=== PATIENT | female | born 1950 | race Caucasian/White ===

== ENCOUNTER 2019-12-20 09:54 | Outpatient (CLI) | payer MEDICARE, SELFPAY ==
--- NOTE | ~2019-12-20 | DEXA_ITS ---
Bone Density Report Name: Shaista Parry Age: 69 Sex: Female Ethnicity: White Date of : 1950 Indication: postmenopausal; parental hip fracture; height loss; asthma or emphysema; Referring Provider: Leanne, Yumi Study: Bone densitometry was performed. Exam Date: December 20, 2019 Accession number: [id number] Bone Density: Region BMD T-score Z-score Classification AP Spine (L1-L4) 1.070 0.2 2.3 Normal Femoral Neck (Left) 0.820 -0.3 1.5 Normal Total Hip (Left) 0.859 -0.7 0.8 Normal Total Hip Bilateral Avg 0.898 -0.4 1.1 Normal Femoral Neck (Right) 0.818 -0.3 1.5 Normal Total Hip (Right) 0.936 -0.1 1.4 Normal World Health Organization criteria for BMD impression classify patients as: Normal (T-score at or above -1.0), Osteopenia (T-score between -1.0 and -2.5), or Osteoporosis (T-score at or below -2.5). 10-year Fracture Risk: FRAX not reported because: All T-scores for Spine Total, Hip Total, Femoral Neck at or above -1.0 Clinical Information Provided by Patient: Parent has had a hip fracture Smokes Has the following medical conditions: Asthma or Emphysema Patient maximum height was 67 Menopause Age: 46 No regular weight bearing exercise Drinks caffeinated beverages Onset of menses at age 12 Number of children 4 Impression: The patient has normal bone mass. The patient has risk factors, including: parental hip fracture, smoking. Discussion: BONE DENSITY IS ABOVE THE MINIMUM DESIRABLE LEVEL AT ALL SKELETAL SITES TESTED. This patient?s bone mineral density is above the minimum desirable level (T-score -1.0 or better) at all sites measured. The patient should follow a healthful lifestyle (good nutrition with adequate calcium and vitamin D, and appropriate weight-bearing exercise). Follow-Up: Consider repeating this study in 5 years or sooner if there is some new clinical indication. Reported by: EDDIE on 12/20/2019 10:24:00 AM. Reviewed, dictated and finalized at location AAnabelle FREEMAN
== END 2019-12-20 09:55 | disposition home or self-care (01) ==
PROVIDERS: PCP Family Medicine; Visit Provider Physician Assistant
DX: M81.0 Age-related osteoporosis without current pathological fracture (principal)
CPT/HCPCS: 77080

== ENCOUNTER 2020-01-24 08:34 | Outpatient (CLI) | payer MEDICARE, SELFPAY ==
--- NOTE | ~2020-01-24 | CT_ITS ---
EXAMINATION: CTA abdomen pelvis DATE: 01/24/2020 09:24 INDICATION: Cervical abdominal aortic dissection TECHNIQUE: Computed tomographic angiography (CTA) of the abdomen and pelvis was performed without and with 100 mL Omnipaque-350 intravenous contrast. Maximum intensity projection 3D-reconstructions of t he aorta and other arteries were constructed by the technologist on a separate workstation. The dose- length product (DLP) was 1168.83 mGy-cm. Automated exposure control and iterative reconstruction tech Intuitive User [employer]facesque were employed. COMPARISON: 05/25/2018 FINDINGS: There is a partially imaged thoracoabdominal aortic dissection extending from the visualize d distal thoracic aorta to the level of the origin of the inferior mesenteric artery. The right renal artery arises from the false lumen and there is decreased perfusion of the right kidney compared to the left on this arterial phase study. The remaining abdominal vasculature arises from the true lumen . The aorta measures up to 4.5 cm in diameter at the level of the diaphragmatic hiatus. The lung base s are clear. The heart size is normal. The liver, spleen, pancreas, gallbladder, and adrenal glands a re normal. The left kidney is unremarkable. No pathologically enlarged abdominal or pelvic lymph node s are identified. There is no free intraperitoneal gas or evidence of bowel obstruction. There is mod erate lumbar spondylosis. IMPRESSION: 1. No significant change in thoracoabdominal aortic dissection. Right renal artery arises from the fa lse lumen and demonstrates decreased perfusion compared to the left on this arterial contrast phase. Reviewed, dictated and finalized at location B. IMPRESSION: 1. No significant change in thoracoabdominal aortic dissection. Right renal art [place] arises from the false lumen and demonstrates decreased perfusion compared t o the left on this arterial contrast phase.
[2020-01-24 09:10] LABS: Estimated Glomerular Filt Rate > 60
== END 2020-01-24 08:35 | disposition home or self-care (01) ==
PROVIDERS: PCP Family Medicine
DX: I71.03 Dissection of thoracoabdominal aorta (principal)
CPT/HCPCS: 36415; 74174; Q9967

== ENCOUNTER 2020-08-16 09:12 | Outpatient (CLI) | payer MEDICARE, MEDICAID, SELFPAY ==
--- NOTE | ~2020-08-16 | CT_ITS ---
EXAMINATION: CTA chest abdomen pelvis DATE: 08/16/2020 09:53 INDICATION: Aortic dissection TECHNIQUE: Computed tomographic angiography (CTA) of the chest, abdomen, and pelvis was performed wit h 100 mL Omnipque-350 intravenous contrast. Maximum intensity projection 3D-reconstructions of the ao rta and other arteries were constructed by the technologist on a separate workstation. The dose-lengt h product (DLP) was 904.05 mGy-cm. Automated exposure control and iterative reconstruction technique were employed. 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 There has been interval enlargement of t he diameter of the descending aorta which now measures up to 4.7 cm, predominantly accounted for by e nlargement of false lumen. There is also intramural hematoma surrounding the distal aspect of the fal se lumen in the thorax. There is mild emphysema. Multinodular goiter is again noted. There is scarrin g of the lung apices. There is no pleural effusion or pneumothorax. Cardiomegaly is noted. There are no pathologically enlarged thoracic lymph nodes. There is moderate thoracic spondylosis. ABDOMEN AND PELVIS CTA: The type B dissection of the thoracic aorta continues into the abdomen to the infrarenal abdominal ao rta. The superior mesenteric artery and celiac axis arise from the true lumen. The single right renal artery arises from the false lumen. Again noted is decreased perfusion of the right kidney compared to the left. A single left renal artery arises from the true lumen. The liver, spleen, gallbladder, a nd adrenal glands are normal. There is a stable 12 mm lesion in the tail of the pancreas and a stable 5 mm lesion the body of the pancreas. No pathologically enlarged abdominal or pelvic lymph nodes are identified. There is no free intraperitoneal gas or evidence of bowel obstruction. There is moderate lumbar spondylosis. IMPRESSION: 1. Type B dissection of the thoracic aorta extending into the infrarenal abdominal aorta. The right r enal artery is again noted to arise from the false lumen and the right kidney demonstrates decreased perfusion compared to the left. 2. Fusiform aneurysm of the distal thoracic aorta predominantly accounted for by enlargement of the f alse lumen and intramural hematoma. 3. Stable cystic lesions of the pancreas measuring up to 12 mm. The differential diagnosis includes p seudocyst, intraductal papillary mucinous neoplasm (IPMN), mucinous cystic neoplasm (MCN), and the le ss common serous cystadenoma and neuroendocrine tumor. Correlate for history of pancreatitis. Follow -up CT or MRI with and without contrast in two years is recommended. Reviewed, dictated and finalized at location A. TARY PAY TECHNICIAN IMPRESSION: 1. Type B dissection of the thoracic aorta extending into the infrarenal abdomi nal aorta. The right renal artery is again noted to arise from the false lumen and the right kidney demonstrates decreased perfusion compared to the left. 2. Fusiform aneurysm of the distal thoracic aorta predominantly accounted for b y enlargement of the false lumen and intramural hematoma. 3. Stable cystic lesions of the pancreas measuring up to 12 mm. The differentia l diagnosis includes pseudocyst, intraductal papillary mucinous neoplasm (IPMN) , mucinous cystic neoplasm (MCN), and the less common serous cystadenoma and ne uroendocrine tumor. Correlate for history of pancreatitis. Follow-up CT or MRI with and without contrast in two years is recommended.
[2020-08-16 09:49] LABS: Estimated Glomerular Filt Rate > 60
== END 2020-08-16 09:13 | disposition home or self-care (01) ==
PROVIDERS: PCP Family Medicine
DX: I71.03 Dissection of thoracoabdominal aorta (principal); I71.2 Thoracic aortic aneurysm, without rupture; S27.892A Contusion of other specified intrathoracic organs, initial encounter; K86.9 Disease of pancreas, unspecified
CPT/HCPCS: 71275; 74174; Q9967

== ENCOUNTER 2021-01-22 12:38 | Outpatient (CLI) | payer MEDICARE, MEDICAID, SELFPAY ==
[2021-01-22 13:16] LABS: Anion Gap 8 mmol/L (8-16); Blood Urea Nitrogen 17 mg/dL (7-17); Calcium 9.5 mg/dL (8.4-10.2); Carbon Dioxide 28 mmol/L (22-30); Chloride 102 mmol/L (98-107); Estimated Glomerular Filt Rate > 60; Glucose 103 mg/dL (65-110); Sodium 138 mmol/L (137-145)
== END 2021-01-22 12:39 | disposition home or self-care (01) ==
PROVIDERS: PCP Family Medicine; Visit Provider Internal Medicine Cardiovascular Disease
DX: I10 Essential (primary) hypertension (principal)
CPT/HCPCS: 36415; 80048

== ENCOUNTER 2021-03-22 08:48 | Outpatient (CLI) | payer MEDICARE, MEDICAID, SELFPAY ==
[2021-03-22 09:25] LABS: Blood Urea Nitrogen 25 mg/dL (7-17); Calcium 9.8 mg/dL (8.4-10.2); Carbon Dioxide 30 mmol/L (22-30); Chloride 103 mmol/L (98-107); Estimated Glomerular Filt Rate > 60; Glucose 108 mg/dL (65-110); Potassium 4.4 mmol/L (3.4-5.0)
[2021-03-22 09:45] LABS: Anion Gap 7 mmol/L (8-16); Sodium 140 mmol/L (137-145)
== END 2021-03-22 08:49 | disposition home or self-care (01) ==
LOC: ANHLAB 08:55
PROVIDERS: PCP Family Medicine; Visit Provider Internal Medicine Cardiovascular Disease
DX: I10 Essential (primary) hypertension (principal)
CPT/HCPCS: 36415; 80048

== ENCOUNTER 2021-04-04 11:53 | Outpatient (CLI) | payer MEDICARE, MEDICAID, SELFPAY ==
[2021-04-04 12:35] LABS: Anion Gap 7 mmol/L (8-16); Blood Urea Nitrogen 27 mg/dL (7-17); Calcium 9.5 mg/dL (8.4-10.2); Carbon Dioxide 30 mmol/L (22-30); Chloride 103 mmol/L (98-107); Estimated Glomerular Filt Rate > 60; Glucose 95 mg/dL (65-110); Potassium 4.4 mmol/L (3.4-5.0); Sodium 140 mmol/L (137-145)
== END 2021-04-04 11:54 | disposition home or self-care (01) ==
LOC: ANHLAB 11:56
PROVIDERS: PCP Family Medicine; Visit Provider Internal Medicine Cardiovascular Disease
DX: Z51.81 Encounter for therapeutic drug level monitoring (principal); Z79.899 Other long term (current) drug therapy
CPT/HCPCS: 36415; 80048

== ENCOUNTER 2022-02-25 12:30 | Outpatient (RCR) | payer MEDICARE, MEDICAID, SELFPAY ==
[2022-02-21 09:09] VITALS: BP_SYST 165; BP_SYST 88
--- NOTE | 2022-02-21 10:09 | PTOPEVAL ---
PHYSICAL THERAPY INITIAL EVALUATION. Thank you for referring Shaista Parry to [facility].? The patient is scheduled to be seen for therapy? 2x/week for 4 weeks. Please review, sign, date and return this plan of care SENA. I agree with and certify that the following plan of care is medically necessary. Referring Physician Date Attending Provider: Shandra Perdomo, PA *PT Outpatient Evaluation Start: 02/21/22 Evaluation Information Diagnosis L shoulder pain Onset ~1 year Subjective Information Pt states her L shoulder has Query Text:As Reported By Patient/ been bother her for almost a Family year now. She states it is painful to reach overhead. She reports when carrying something light, her hand, particularly her thumb will go out . Pain Assessment Left Shoulder(s) Reported Pain Level 4 Pain Description Soreness,Tightness Pain Frequency Intermittent Lowest Pain Intensity 4 Greatest Pain Intensity 8 Upper Extremity Range of Motion Scapular/ Shoulder Range of Motion Right Shoulder Flexion - Active 150 Shoulder Flexion - Passive 155 Shoulder Abduction - Active 138 Shoulder Abduction - Passive 165 Shoulder Medial Rotation - Active T12 Shoulder Lateral Rotation - Active T4 Left Shoulder Flexion - Active 112 Shoulder Flexion - Passive 125 Shoulder Abduction - Active 80 Shoulder Abduction - Passive 88 Shoulder Medial Rotation - Active L PSIS Shoulder Lateral Rotation - Active T2 Scapular/Shoulder Range of Motion pain reported with active Comments motion, at posterior GH joint Upper Extremity Muscle Strength Testing Scapular/Shoulder Right Shoulder Flexion Strength 4+ Good + Shoulder Abduction Strength 4+ Good + Shoulder Medial Rotation Strength 4+ Good + Shoulder Lateral Rotation Strength 4+ Good + Left Reason Not Measured Pain Shoulder Flexion Strength 4 Good Shoulder Abduction Strength 4 Good Shoulder Medial Rotation Strength 4 Good Shoulder Lateral Rotation Strength 4 Good Posture Shoulder Posture Neutral Scapula Posture (L) Neutral,(R) Neutral Palpation Assessment Palpation none reported Special Tests-Upper Extremity Painful Arc Negative Right,Positive Left Safety Assessment Factors Affecting Safety No Concerns Manual Therapy Side Left Manual Therapy Location Shoulder Patient Position Supine Manual Therapy Treatment Grade 3 Mobilization,Passive
--- NOTE | 2022-03-08 13:52 | PCPTNOTE ---
Patient did not show up for scheduled appointment this date. Called and talked to the patient and she stated that she did not have an appointment today.
--- NOTE | 2022-03-12 08:06 | PTOPDC ---
Evaluation Information Assessment Status Discharge - Pt Not Present Subjective Information Pt called and cancelled all of her remaining appointment including her reevaluation this date. She reports her is sick and not doing well . She states she does not have time to invest in therapy at this time. Assessment PT Clinical Summary Shaista has completed 2 visits of skilled therapy. Pt is to be discharged from therapy services at this time. She will need to orders if she would like to return.
== END 2022-03-12 09:22 | disposition home or self-care (01) ==
LOC: ANHPT 12:30
PROVIDERS: PCP Family Medicine; Referring Provider Physician Assistant; Visit Provider Physician Assistant
DX: M75.42 Impingement syndrome of left shoulder (principal)
CPT/HCPCS: 97110; 97140; 97161; 99199

== ENCOUNTER 2023-02-18 09:39 | Outpatient (CLI) | payer MEDICARE, MEDICAID, SELFPAY ==
[2023-02-18 10:46] LABS: Anion Gap 6 mmol/L (8-16); Blood Urea Nitrogen 22 mg/dL (7-17); Carbon Dioxide 29 mmol/L (22-30); Chloride 103 mmol/L (98-107); Estimated Glomerular Filt Rate > 60; Glucose 86 mg/dL (65-110); Potassium 4.2 mmol/L (3.4-5.0); Sodium 138 mmol/L (137-145)
== END 2023-02-18 09:40 | disposition home or self-care (01) ==
PROVIDERS: PCP Family Medicine; Visit Provider Internal Medicine Cardiovascular Disease
DX: Z79.899 Other long term (current) drug therapy (principal)
CPT/HCPCS: 36415; 80048

== ENCOUNTER 2023-06-27 13:03 | Outpatient (CLI) | payer MEDICARE, MEDICAID, SELFPAY ==
--- NOTE | ~2023-06-27 | XR_ITS ---
XR chest 2V 06/27/2023 13:45 Indication: Pneumonia Procedure: 2 view chest Comparison: 05/25/2018 Findings: There is a new masslike density in the right upper lobe anteriorly, suspicious for bronchog enic carcinoma. Small right pleural effusion. Heart size normal. Left lung clear. Impression: 1: New masslike density right upper lobe anteriorly, suspicious for bronchogenic carcinoma. Correlati on with CT chest recommended. Reviewed, dictated and finalized at location A. DIRECTOR Impression: 1: New masslike density right upper lobe anteriorly, suspicious for bronchogeni c carcinoma. Correlation with CT chest recommended.
[2023-06-27 14:12] LABS: Alanine Aminotransferase 52 U/L (6-35); Albumin Level 3.9 g/dL (3.5-5.1); Alkaline Phosphatase 103 U/L (38-126); Anion Gap 8 mmol/L (8-16); Aspartate Amino Transferase 46 U/L (14-36); Bilirubin,Total 0.3 mg/dL (0.2-1.3); Blood Urea Nitrogen 26 mg/dL (7-17); Calcium 10.1 mg/dL (8.4-10.2); Carbon Dioxide 29 mmol/L (22-30); Chloride 102 mmol/L (98-107); Estimated Glomerular Filt Rate > 60; Glucose 93 mg/dL (65-110); Potassium 4.4 mmol/L (3.4-5.0); Sodium 139 mmol/L (137-145)
== END 2023-06-27 13:04 | disposition home or self-care (01) ==
PROVIDERS: PCP Physician Assistant; Visit Provider Physician Assistant
DX: J18.9 Pneumonia, unspecified organism (principal); R60.0 Localized edema; R91.8 Other nonspecific abnormal finding of lung field
CPT/HCPCS: 36415; 71046; 80053

== ENCOUNTER 2024-03-31 16:30 | Emergency (ER) | payer MEDICARE, MEDICAID, SELFPAY ==
[2024-03-31 16:39] VITALS: BP 145/77; PULSE 74; RESP 18; TEMP 36.4; O2SAT 97
[2024-03-31 16:49] LABS: EDUAAPPEAR Cloudy; EDUABILI Negative (Negative); EDUABLOOD Trace (Negative); EDUACOLOR1 Dark; EDUAGLUCOSE Negative (Negative); EDUAKETONE Negative (Negative); EDUALEUKO 2+ (Negative); EDUANITRATE Negative (Negative); EDUAPROTEIN Negative (Negative); EDUASPGRAVITY 1.025; EDUAUROBILI 0.2
--- NOTE | 2024-03-31 17:21 | ED.GENADULT ---
HPI - General Adult General Chief complaint: Urogenital-Female Stated complaint: uti symptoms Time Seen by Provider: 03/31/24 16:47 Source: patient, RN notes reviewed and old records reviewed Mode of arrival: ambulatory Limitations: no limitations History of Present Illness HPI narrative: 73-year-old female to [facility] for complaint of urinary frequency, retention and burning with urination for 3 days. Patient states that she was seen on March 09 by her primary care provider and treated for a urinary tract infection with Macrobid. patient reports that after a biotic treatment her symptoms had completely resolved until 3 days ago. Patient denies abdominal pain, nausea, vomiting, flank pain, back pain, hematuria, bowel changes, fever. Patient resting comfortably in exam room in no acute distress. Respirations even and nonlabored. Patient able to tolerate fluids by mouth. Patient states that she did call her primary care provider's office this morning but they were unable to see today. Related Data Home Medications Medication Instructions Recorded Confirmed alprazolam 0.25 mg tablet 0.25 mg DIRECTED 03/31/24 03/31/24 atorvastatin 40 mg tablet 40 mg DIRECTED 03/31/24 03/31/24 carvedilol 6.25 mg tablet (Coreg) 6.25 mg DIRECTED 03/31/24 03/31/24 irbesartan 75 mg tablet 75 mg DIRECTED 03/31/24 03/31/24 valacyclovir 500 mg tablet 500 mg DIRECTED 03/31/24 03/31/24 Allergies Allergy/AdvReac Type Severity Reaction Status Date / Time Penicillins Allergy Unknown Unknown Verified 03/31/24 17:11 Review of Systems Review of Systems: All systems reviewed & are unremarkable except as noted in HPI and below Constitutional: Constitutional: Reports no additional constitutional complaints Eyes: Eyes: Reports no additional eye complaints ENT: Reports system reviewed and no additional complaints, except as documented Cardiovascular: Cardiovascular: Reports no additional cardiovascular complaints, Denies chest pain and Denies dyspnea Respiratory: Respiratory: Reports no additional respiratory complaints, Denies cough and Denies dyspnea Genitourinary: Genitourinary: Reports as per HPI, Reports nocturia, Reports dysuria and Reports urinary urgency Musculoskeletal: Musculoskeletal: Reports no additional musculoskeletal complaints Neurologic: Reports system reviewed and no additional complaints, except as documented Psychiatric: Psychiatric: Reports no additional psychiatric complaints [facility] Family History Family History Mother Cerebrovascular accident Sibling Family history of pancreatic cancer Father Family history of coronary artery disease Other Family history of lung cancer Family history of lymphoma Social History Social History Smoking status: Current every day smoker Alcohol intake: current Comments At the time of my signature, I reviewed and agree with the nursing past medical, surgical, social, and family history. There is no relevant family history pertinent to the patient complaint. Exam Const: General: cooperative, no acute distress, well developed, alert, uncomfortable, well groomed and well nourished Nutritional Appearance: well nourished Orientation/consciousness: patient oriented x3 Limitations: no limitations HENMT: Head: normal to inspection Ears: external ears normal Face/Nose/Sinus: Normal external nose present, Normal nares present, normal facial exam, No erythema and No edema Face and sinus: normal facial exam, no erythema and no edema Mouth: Yes Normal oral and palatal mucosa present Eyes: General: appearance normal, both eyes and all related structures Neck: Neck: normal visual inspection, full ROM and no meningeal signs Chest: Chest palpation & inspection: normal inspection of the chest Resp: Effort & Inspection: normal respiratory effort
== END 2024-03-31 17:41 | disposition home or self-care (01) ==
PROVIDERS: Emergency Provider Nurse Practitioner Family; PCP Physician Assistant
DX: N39.0 Urinary tract infection, site not specified (principal); B96.20 Unspecified Escherichia coli [E. coli] as the cause of diseases classified elsewhere; F17.200 Nicotine dependence, unspecified, uncomplicated; M19.90 Unspecified osteoarthritis, unspecified site; E03.9 Hypothyroidism, unspecified
CPT/HCPCS: 81003; 87077; 87086; 87186; 99213; G0463

== ENCOUNTER 2024-11-20 13:01 | Emergency (ER) | payer MEDICARE, MEDICAID, SELFPAY ==
--- OUTSIDE RECORDS SUMMARY | 2024-11-20 13:03 | XMS_ITS | Encounter Summary ---
Author Organization [facility] Address [address] [place] [address] Care Team Providers Care Tripe Cooker Name Role Phone Unavailable Primary Care Provider Unavailabl e Encounter Details Date Type Department Care Team (Late st Contact Info) Description 04/25/2020 Lab Requisition [facility] DermPath Lab [address] [facility] [address] [facility], [facility] [place] [id number] Hallie Carballo MD [address] [facility] [address] [place] [address] Social History Tobacco Use Types Packs/Day Years Used Date Smoking Tobacco: Never Assessed Comments Unknown Sex and Gender Information Value Date Recorded Sex Assigned at Not on file 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 Gender Identity Not on file Sexual Orientation Not on file documented as of this encounter Plan of Treatment Not on file documented as of this encounter Procedures Procedure Name Priority Date/Time Associated Diagnosis Comments DERMATOPATHOLOGY Routine 04/24/2020 12:0 0 AM CDT documented in this encounter Results * DERMATOPATHOLOGY (04/24/2020 12:00 AM CDT) Case Report Dermatopathology Report Case: [id number] Authorizing Provider: Hallie Carballo MD Collected: 04/24/2020 12:00 AM Ordering Location: [facility] Derm[facility] Lab Received: 04/25/2020 06:38 AM Pathologist: Kayleigh De La Torre MD Specimen: Skin, nose bridge 0 1:45 PM CDT DERMATOPATHOLOGY LABORATORY Final Diagnosis Specimen A. 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 0 1:45 PM CDT DERMATOPATHOLOGY LABORATORY Gross Description Specimen A: Received is one formalin filled container labeled with the patient's name and designated nose bridge. The specimen consists of a shave measuring [id number]. Jar 0. 0 1:45 PM CDT DERMATOPATHOLOGY LABORATORY Microscopic Description Specimen A. SKIN, nose bridge: The epidermis shows parakeratosis, full thickness disorderly maturation of keratinocytes, mitoses at different levels, and dyskeratotic cells. The lesion extends to the base of the biopsy.COMMENT: An invasive squamous cell carcinoma cannot be ruled out. Additional deeper sections were obtained and reviewed. 0 1:45 PM CDT DERMATOPATHOLOGY LABORATORY Disclaimer An external and internal positive and negative controls are appropriate for the histochemical, immunohistochemical and immunofluorescence stain(s) in this case (if any), except where stated explicitly. The performance characteristics of the stain(s) cited in this report were developed and its performance characteristic determined by the Dermatopathology Laboratory at [facility], directed by Dr. Jose E Carmichael. These tests need not be, and therefore are not, approved by the [place] Food and Drug Administration. The tests are used for clinical purposes. Billing Codes Specimen Charges Stain Charges 11852 1 0 1:45 PM CDT DERMATOPATHOLOGY LABORATORY Embedded Images 0 1:45 PM CDT DERMATOPATHOLOGY LABORATORY Pathology/Cytolog y TISSUE SPECIMEN FROM SKIN / Unknown 04/24/2020 04/25/2020 6:38 AM CDT us Hallie Carballo MD LAB - PATHOLOGY/CYTOLOGY ORD ERABLES Final Result DERMATOPATHOLOGY LABORATORY [facility] - Department of Dermatology [address] [place] [address], [facility] [phone] documented in this encounter Visit Diagnoses Not on filedocumented in this encounter
--- OUTSIDE RECORDS SUMMARY | 2024-11-20 13:03 | XMS_ITS | Clinical Summary ---
Author Organization [facility] Address [address] [place] [address] Care Team Providers Care Rewinder Name Role Phone Unavailable Primary Care Provider Unavailabl e Source Comments [facility],non-owned Affiliates and Associated Physician Practices is amultiple site organization consisting of ambulatory clinics and hospital sitesin [place], [place], [place] and [place]. This disclosure is being madepursuant to the Care Everywhere program and may not contain all information available regarding this patient. 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 Gender Identity Not on file Sexual Orientation Not on file Plan of Treatment Health Maintenance Due Date Last Done Comments BONE DENSITY TESTING 1950 COLOGUARD (AGES 45-75) - COL ON CA SCREENING 1950 COLON MONITORING 1950 COLONOSCOPY - COLON CA SCREENING 1950 CT COLONOGRAPHY - COLON CA SCREENING 1950 Colorectal Cancer Screening 1950 FIT - COLON CA SCREENING 1950 FLEX SIG - COLON CA SCREENING 1950 LIPID TESTING 1950 MAMMOGRAM 1950 HEPATITIS C SCREENING 05/28/1968 DTAP/TDAP/TD VACCINES (1 - Tdap) 1969 PNEUMOCOCCAL VACCINE 50+ (1 of 1 - PCV) 2000 ZOSTER VACCINE (1 of 2) 2000 COVID-19 VACCINE ( - 2023-2 5 season) 2024 DEPRESSION SCREENING 06/30/2024 INFLUENZA VACCINE (Season Ended) 2025 Respiratory Syncytial Virus (RSV) Vaccine Pt: or over 60 yrs (1 - 1-dose 75+ series) 2025 HEPATITIS B VACCINE Aged Out No longe r eligible based on patient's age to complete this topic HIB VACCINE Aged Out No longer eligi ble based on patient's age to complete this topic HPV VACCINE Aged Out No longer eligi ble based on patient's age to complete this topic MENINGOCOCCAL (Group B) VACC INE SHARED DECISION-MAKING Aged Out No longer eligibl e based on patient's age to complete this topic MENINGOCOCCAL GROUPS A/C/Y/W VACCINE Aged Out No longer eligible b ased on patient's age to complete this topic Insurance [employer] MANAGED MEDICARE ADV
--- OUTSIDE RECORDS SUMMARY | 2024-11-20 13:03 | XMS_ITS | Clinical Summary ---
Author Organization [facility] Address [address], [address] [place] [address] Phone Care Team Providers Care Electrocardiograph Repairer Name Role Phone Shandra Perdomo A PAC Primary Care Provider [phone] Archie Arredondo MD Unavailable Aracelis See MD Unavailable Sanitago Hope MD Unavailable Allergies Active Allergy Reactions Criticality Noted Date Comments Amlodipine Swelling Medium 12/19/2020 Lisinopril Other (see Comments) Low 11/22/2022 Losartan Other (see Comments) Low 02/10/2023 Nightmares Penicillins Rash,Hives Medium 05/25/2018 Rash in her 30s Medications ALPRAZolam (XANAX) 0.25 MG Tablet TAKE 1 TABLET TWICE A DAY BY ORAL ROUTE NEEDED. 08/02/2022 Active atorvastatin (LIPITOR) 40 MG Tablet Take 40 mg by mouth daily. 07/19/2022 Active Calcium + Vitamin D3 600-10 MG-MCG Tablet Take 1 Tablet by mouth daily. 04/29/2022 Active carvedilol (COREG) 6.25 MG Tablet Take 6.25 mg by mouth 2 times daily. 06/20/2022 Active clobetasol (TEMOVATE) 0.05 % Cream 07/29/2022 Active ferrous sulfate 325 (65 Fe) MG Tablet Take 325 mg by mouth 3 times daily. Active latanoprost (XALATAN) 0.005 % Solution APPLY ONE DROP TO BOTH EYES ONCE AT NIGHT 07/12/2022 Active valACYclovir (VALTREX) 500 MG Tablet Take 500 mg by mouth daily. 07/31/2022 Active Simbrinza 1-0.2 % Suspension 10/18/2022 Active irbesartan (AVAPRO) 75 MG Tablet Take 75 mg by mouth. 08/25/2023 Active Active Problems Problem Noted Date Diagnosed Date AVM (arteriovenous malformation) 12/23/2022 History of Helicobacter pylori infection 023 Vitamin D deficiency 10/24/2022 Coronary atherosclerosis 08/29/2022 Other specified anemias 08/09/2022 Iron deficiency anemia 08/09/2022 NOE (generalized anxiety disorder) 08/06/2022 Overview (08/29/2022): Last Assessment & Plan: Uncontrolled Previously had side effects to ssri Consider buspar, she will think about Continue xanax as needed as must keep blood pressure at goal given dissection NSTEMI (non-ST elevated myocardial infarction) 0 01/03/2021 Hypertension 05/27/2018 Overview (08/29/2022): Last Assessment & Plan: In the setting of Type B dissection. No prior hx but likely HTN at baseline. Yesterday, Cardene gtt started and Amlodipine 5 mg given to achieve SBP goal <120. Lisinopril 5 mg given in afternoon and Cardene gtt weaned off at 1800. Overnight, MAP's dropped to 50's and HR dropped to 50's while pt sleeping. This AM, HR 60's-70's and SBP in the 110's. - SBP goal <120 and HR <70 in the setting of type B dissection - Cardiology following - Coreg 3.125 mg BID despite transient bradycardia overnight. 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 - Thyroid ultrasound Last Assessment & Plan: Found incidentally on CT scan. - Thyroid ultrasound Aortic dissection 05/25/2018 Overview (08/29/2022): Last Assessment & Plan: Type B dissection. Continues to deny pain. - Keep HR <70 and SBP <120 - Advance diet to Cardiac diet - q1 hr neurovascular checks - Tylenol PRN - Morphine 2 mg IV PRN Last Assessment & Plan: Following with cardiology Annual CT scan Basal cell carcinoma (BCC) of face 11/08/2016 Encounters Date Type Department Care Team Description 10/11/2024 9:40 AM CDT Lab [facility] [address] [phone] [facility] Iron deficiency anemia, unspecified iron deficiency anemia type 10/11/2024 Travel 10/07/2024 Telephone [facility] [address] [phone] Archie Arredondo MD Canopy Call / Fatigue 09/14/2024 9:45 AM CDT Clinical Support [facility] [address] [phone] Iron deficiency anemia, unspecified iron deficiency anemia type (Primary Dx) 09/14/2024 Travel 09/13/2024 Results Follow-Up [facility] [address] [phone] Archie Arredondo MD IRON W/ IRON BINDING CAPACITY [place], FERRITIN, CBC WITH AUTO DIFF [place] 09/09/2024 9:30 AM CDT Office Visit [facility] [address] [phone] Svetlana Artis APRN, CNP Iron deficiency anemia, unspecified iron deficiency anemia type (Primary Dx); AVM (arteriovenous malformation) 09/09/2024 Telephone [facility] [address] [phone] Archie Arredondo MD 09/08/2024 9:45 AM CDT Lab [facility] [address] [phone] Lab[facility] Iron deficiency anemia, unspecified iron deficiency anemia type; AVM (arteriovenous malformation) 09/08/2024 Travel from Last 3 Months Immunizations Immunization Administration Dates Next Due TDAP Vaccine 02/13/2023 Family History Medical History Relation Name Comments Heart Disease Brother 1 Cancer Brother 2 Lung Cancer Child Cardiomyopathy Father Colon Cancer Maternal Aunt Stroke Mother Relation Name Status Comments Brother 1 Brother 2 pancratic cance r Child Father Maternal Aunt Mother Social History Tobacco Use Types Packs/Day Years Used Date Smoking Tobacco: Former Cigarettes Q uit: 2020 Smokeless Tobacco: Never Tobacco Cessation:Counseling Given: Not Answered Alcohol Use Standard Drinks/Week Comments Yes 0 (1 standard drink = 0.6 oz pur e alcohol) rarely Comments Unknown Sex and Gender Information Value Date Recorded Sex Assigned at Not on file Legal Sex Female 9:29 AM [employer] Gender Identity Not on file Sexual Orientation Not on file Last Filed Vital Signs Vital Sign Reading Time Taken Comments Blood Pressure 110/78 09/09/2024 9:30 AM CDT Pulse 55 09/09/2024 9:30 AM CDT Temperature 36.4 C (97.5 F) 09/09/2024 9:30 AM CDT Respiratory Rate 18 09/09/2024 9:30 AM CDT Oxygen Saturation 96% 09/09/2024 9:30 AM CDT Inhaled Oxygen Concentration - - Weight 80.7 kg (177 lb 14.4 oz) 09/09/2024 9:30 AM CDT Height 165.1 cm (5' 5 ) 09/09/2024 9:30 AM CDT Body Mass Index 29.6 09/09/2024 9:30 AM CDT Plan of Treatment Upcoming Encounters Date Type Department Care Team (Late st Contact Info) Description 12/08/2024 9:30 AM CDT Lab [facility] [address] [phone] Lab, [facility] 12/09/2024 10:00 AM CDT Office Visit [facility] [address] [phone] Archie Arredondo MD [address] [place] [address] Health Maintenance Due Date Last Done Comments DEXA Bone Density 1950 Mammogram 1950 SARS-COV-2 Immunization (#1) 1955 Pneumococcal Immunization (5 0+ years) (1 of 2 - PCV) 1969 Zoster Immunization (1 of 2) 1969 Cologuard 2000 Immunochemical Fecal Occult Blood 2000 Respiratory Syncytial Virus (RSV) Immunization (Adult) (1 - Risk 60-74 years 1-dose series) 2010 Influenza Immunization (Seas on Ended) 2025 Colonoscopy 11/27/2032 11/27/2022 Colorectal Cancer Screening 11/27/2032 Td Immunization Every 10 Yea rs (Adults With 1 Tdap) 02/13/2033 02/13/2023 11/27/2022 Hepatitis C Virus (HCV) Screening Completed 023 DTaP/Tdap/Td Immunization Discontinued 02/13/2023 TdaP Immunization Discontinued 02/13/2023 Hepatitis B Immunization Aged Out No longer eligible based on patient's age to complete this topic Meningococcal Immunization (ACWY) Aged Out No longer eligible based on patient's age to complete this topic Rotavirus Immunization Aged Out No lo nger eligible based on patient's age to complete this topic Procedures Procedure Name Priority Date/Time Associated Diagnosis Comments CBC WITH AUTO DIFF OH Routine 10/11/2024 9:39 AM CDT FERRITIN Routine 10/11/2024 9:39 AM CDT Iron deficiency anemia, unspecified iron deficiency anemia type IRON W/ IRON BINDING CAPACITY OH Routine 10/11/2024 9:39 AM CDT Iron deficiency anemia, unspecified iron deficiency anemia type CBC WITH AUTO DIFF OH Routine 09/08/2024 10:15 AM CDT FERRITIN Routine 09/08/2024 10:15 AM CDT Iron deficiency anemia, unspecified iron deficiency anemia type AVM (arteriovenous malformation) IRON W/ IRON BINDING CAPACITY OH Routine 09/08/2024 10:15 AM CDT Iron deficiency anemia, unspecified iron deficiency anemia type AVM (arteriovenous malformation) HEPATITIS C ANTIBODY Routine 08/19/2022 8:44 AM [facility] Special screening examination for viral disease from Last 3 Months or Most Recently Relevant to Health Maintenance Results * (ABNORMAL) IRON W/ IRON BINDING CAPACITY [place] (10/11/2024 9:39 AM CDT) Only the most recent of2 resultswithin the time period is included. IRON 63 50 - 212 ug/dL [facility] UIBC 271 155 - 355 ug/dL [facility] TIBC 334 261 - 478 ug/dl [facility] % Saturation 19(L) 20 - 50 % [facility] 10/11/2024 9:39 AM CDT Narrative [facility] - 10/11/2024 10:46 AM CDT Release to patient->Immediate us Archie Arredondo MD LAB SEND OUTS Final Result [facility] [place] [address], * (ABNORMAL) CBC WITH AUTO DIFF [place] (10/11/2024 9:39 AM CDT) Only the most recent of2 resultswithin the time period is included. WBC 4.0 4.0 - 10.0 10*3/uL [facility] HGB 11.5 11.2 - 15.7 g/dL [facility] HCT 37.3 34.1 - 44.9 % [facility] PLT 192 163 - 369 10*3/uL [facility] MPV 10.1 9.4 - 12.4 fL [facility] RBC 3.90(L) 3.93 - 5.22 10*6/uL [facility] MCV 96(H) 79 - 95 fL [facility] MCH 29.5 25.6 - 32.2 pg [facility] MCHC 30.8(L) 32.2 - 36.5 g/dL [facility] RDW 13.3 11.6 - 14.4 % [facility] Neutrophils % 67.8(H) 36.0 - 66.0 % [facility] Lymphocytes % 19.3 19.0 - 40.0 % [facility] Monocytes % 8.8 4.1 - 12.1 % [facility] Eosinophils % 2.5 0.0 - 3.5 % [facility] Basophils % 0.8 0.0 - 1.0 % [facility] Absolute Neutrophils 2.7 1.4 - 6.6 10*3/uL [facility] Absolute Lymphocytes 0.8 0.8 - 4.0 10*3/uL [facility] Absolute Monocytes 0.4 0.2 - 1.2 10*3/uL [facility] Absolute Eosinophils 0.1 0.0 - 0.4 10*3/uL [facility] Absolute Basophils 0.0 0.0 - 0.1 10*3/uL [facility] 10/11/2024 9:39 AM CDT us Archie Arredondo MD LAB SEND OUTS Final Result [facility] * FERRITIN (10/11/2024 9:39 AM CDT) Only the most recent of2 resultswithin the time period is included. Pathologist [facility] Ferritin 37 11 - 307 ng/mL [facility] Blood 10/11/2024 9:39 AM CDT Narrative [facility] - 10/11/2024 2:36 PM CDT Release to patient->Immediate Archie Arredondo MD CHEMISTRY ORDERABLES Final R esult [facility] [place] [address], * HEPATITIS C ANTIBODY (08/19/2022 8:44 AM [facility]) Pathologist [facility] HEPATITIS C VIRUS AB SIGNAL CUTOFF NON REACTIVE NON REACTIVE [facility] HEPATITIS C VIRUS AB COMMENT [facility] Comment: NOT INFECTED WITH HCV UNLESS EARLY OR ACUTE INFECTION IS SUSPECTED (WHICH MAY BE DELAYED IN AN IMMUNOCOMPROMISED INDIVIDUAL), OR OTHER EVIDENCE EXISTS TO INDICATE HCV INFECTION. Blood 08/19/2022 8:44 AM [facility] Narrative [facility] - 08/20/2022 9:09 AM [facility] TESTING PERFORMED AT: [] [facility], [address] [place] [address], [place], [address], PHONE: [phone], PERMIT AGENT: RICO PARADA, PHD Release to patient->Immediate Aracelis See MD CHEMISTRY ORDERAB LES Final Result Performing Organization Address City[facility] Co de Phone Number [facility] from Last 3 Months or Most Recently Relevant to Health Maintenance Insurance MEDICAID [place] MEDICARE C [employer] Care Teams Electrocardiograph Repairer Relationship Specialty Start Date End Date Shandra Perdomo, BILL [address] [place] [id number] PCP - General Physician Production Reproduction Manager 07/25/22 Archie Arredondo MD [address] [place] [phone] Consulting Physician Oncology 07/25/22 Aracelis See MD [facility] [address] [place] [address] Family Medicine 08/20/22 Santiago Hope MD [address] [facility] [address] [place] [address] Pulmonary Disease 08/28/23
--- OUTSIDE RECORDS SUMMARY | 2024-11-20 13:03 | XMS_ITS | Encounter Summary ---
Author Organization [facility] Address [address] [place] [address] Phone Care Team Providers Care Nut Process Helper Name Role Phone Shandra Perdomo PAC Primary Care Provider Archie Arredondo MD Unavailable [phone] Aracelis See MD Unavailable Santiago Hope MD Unavailable [phone] Encounter Details Date Type Department Care Team (Late st Contact Info) Description 01/09/2024 Telephone [facility] [address] [place] [address] Archie Arredondo MD [address] [facility] [address] [facility] [address] [place] [address] Social History Tobacco Use Types Packs/Day Years Used Date Smoking Tobacco: Former Cigarettes Q uit: 2020 Smokeless Tobacco: Never Alcohol Use Standard Drinks/Week Comments Yes 0 (1 standard drink = 0.6 oz pur e alcohol) rarely Comments Unknown Sex and Gender Information Value Date Recorded Sex Assigned at Not on file 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 Question Answer Date of Assessment Author Patient Health Questionnaire -2 Score 0 01/12/2024 9:48 AM CDT Nancy Chen R MA documented as of this encounter Plan of Treatment Upcoming Encounters Date Type Department Care Team (Late st Contact Info) Description 12/08/2024 9:30 AM CDT Lab [facility] [address] [phone] Lab, [facility] 12/09/2024 10:00 AM CDT Office Visit [facility] [address] [phone] Archie Arredondo MD [address] [place] [phone] documented as of this encounter Visit Diagnoses Not on filedocumented in this encounter Care Teams Nut Process Helper Relationship Specialty Start Date End Date Shandra Perdomo PAC [address] [place] [address] PCP - General Physician [employer] Tin Roller 07/25/22 Archie Arredondo MD [address] [place] [phone] Consulting Physician Oncology 07/25/22 Aracelis See MD [facility] [address] [place] [address] Family Medicine 08/20/22 Santiago Hope MD [address] [facility] [address] [place], [place] [phone] Pulmonary Disease 08/28/23 documented as of this encounter
--- OUTSIDE RECORDS SUMMARY | 2024-11-20 13:04 | XMS_ITS | Encounter Summary ---
Author Organization [facility] Address [address] [place] [address] Phone Care Team Providers Care Phlebotomist Associate Name Role Phone Shandra Perdomo Primary Care Provider + Encounter Details Date Type Department Care Team (Latest Contact Info) Description 10/24/2024 Orders Only [facility] Scanning, Provider Social History Tobacco Use Types Packs/Day Years Used Date Smoking Tobacco: Former Cigarettes 1 50 1 971 - 2020 Smokeless Tobacco: Never Alcohol Use Standard Drinks/Week Comments No 0 (1 standard drink = 0.6 oz pur e alcohol) [facility] Utilities Answer Date Recorded In the past 12 months has e electric, gas, oil, or water company threatened to shut off services in your home? No 10/14/2024 Social Connection and Isolat ion Panel [NHANES] Answer Date Recorded In a typical week, how many times do you talk on the phone with family, friends, or neighbors? More than three times a week 10/14/2024 How often do you get togethe r with friends or relatives? More than three times a week 10/14/2024 How often do you attend chur ch or lutheran services? 1 to 4 times per year 10/14/2024 Do you belong to any clubs o r organizations such as sabianist groups, unions, fraternal or athletic groups, or school groups? No 10/14/2024 How often do you attend meet ings of the clubs or organizations you belong to? Never 10/14/2024 Are you , , di vorced, , never , or living with a partner? 10/14/2024 AUDIT-C Answer Date Recorded Q1: How often do you have a drink containing alc ohol? Never 01/31/2023 Average Number of Drinks Not on file 023 Q3: How often do you have si x or more drinks on one occasion? Never 01/31/2023 Overall Financial Resource Strain (CARDIA) Answe r Date Recorded How hard is it for you to pa y for the very basics like food, housing, medical care, and heating? Not very hard 10/14/2024 PHQ-2 Answer Date Recorded PHQ-2 Total Score (If total score is 3 or more points, staff should administer the PHQ-9) 0 08/06/2022 Hunger Vital Sign Answer Date Recorded Within the past 12 months, y ou worried that your food would run out before you got the money to buy more. Never true 10/15/19 25 Within the past 12 months, t he food you bought just didn't last and you didn't have money to get more. Never true 10/14/2024 PRAPARE - Transportation Answer Date Re corded In the past 12 months, has l ack of transportation kept you from medical appointments or from getting medications? No 09/28 In the past 12 months, has l ack of transportation kept you from meetings, work, or from getting things needed for daily living? No 10/14/2024 Housing Stability Vital Sign Answer Edin e Recorded In the last 12 months, was t here a time when you were not able to pay the mortgage or rent on time? No 06/13/2023 In the last 12 months, how many places have you lived? 1 06/13/2023 In the last 12 months, was t here a time when you did not have a steady place to sleep or slept in a senior living (including now)? No 06/13/2023 Housing Stability Vital Sign Answer Edin e Recorded In the last 12 months, was t here a time when you were not able to pay the mortgage or rent on time? No 10/14/2024 In the past 12 months, how m any times have you moved where you were living? 0 10/14/2024 At any time in the past 12 m [facility], were you homeless or living in a senior living (including now)? No 10/14/2024 Personal Safety Answer Date Recorded Have you ever been in or are you currently in a harmful physical or emotional relationship or is someone making you feel afraid or unsafe? Denies 10/13/2024 Comments No Sex and Gender Information Value Date Recorded Sex Assigned at Not on file Legal Sex Female 1:58 PM CDT Gender Identity Female 02/06/2020 4:21 PM CDT Sexual Orientation Straight 02/06/2020 4: 21 PM CDT documented as of this encounter Plan of Treatment Scheduled Orders Name Type Priority Associated Diagnoses Orde r Schedule Cardiology Document Scan Cardiac Services Ordered: 10/24/2024 Cardiology Document Scan Cardiac Services Ordered: 11/06/2024 Cardiology Document Scan Cardiac Services Ordered: 11/07/2024 documented as of this encounter Visit Diagnoses Not on filedocumented in this encounter Care Teams Phlebotomist Associate Relationship Specialty Start Date End Date Shandra Perdomo PA PCP - General Physician Waterproof Material Folder 03/14/23 documented as of this encounter
--- OUTSIDE RECORDS SUMMARY | 2024-11-20 13:04 | XMS_ITS | Referral Summary ---
Author Organization [facility] Address [address] [place] [address] Care Team Providers Care Postdoctoral Scholar Name Role Phone Shandra Perdomo Primary Care Provider + Encounters Date Type Department Care Team Description 11/12/2024 Telephone [facility] Cardiology [facility] Medicine [facility] [place] [address] [place] [address] Khushi Menezes HR 11/08/2024 Orders Only [facility] Scanning, Provider 10/29/2024 Telephone [facility] Surgery [address] [facility] Medicine [facility] [place] [address] [place] [address] Jarvis Schwab, RMA 10/28/2024 Telephone [facility] Surgery [address] [facility] Floor 1 [place] [address] Fredy Dumont MD 10/26/2024 1:30 PM CDT Office Visit [facility] Cardiology [facility] [address] [place] [address] [place] [address] Eric Abrams MD Primary hypertension (Primary Dx); Hypercholesterolemia ; Dissection of aorta, unspecified portion of aorta (HCC) 10/24/2024 Orders Only [facility] Scanning, Provider 10/18/2024 12:45 PM CDT Ancillary Procedure [facility] Cardiology [facility] Medicine [facility] [place] [address] [place] [address] Palpitations 10/13/2024 5:33 PM CDT - 10/15/2024 4:08 PM CDT [facility]4 [place] [address] Boone Lopes MD [place], MD [place] Prieto Bushra, MD Palpitations (Primary Dx); Nonsustained ventricular tachycardia (HCC); Acute cystitis without hematuria; Weakness; History of aortic dissection Discharge Disposition: Discharge to home or self care 10/14/2024 Telephone [facility] Cardiology [address] [place] [address] [facility] [place] [address] [place] [address] Eric Abrams MD 10/14/[address] [place] [address] Eric Abrams MD Inpt/Medication question 09/13/[address] [place] [address] [place] [address] Eric Abrams MD 09/07/[address] [place] [address] Eric Abrams MD from Last 3 Months Allergies Active Allergy Reactions Criticality Noted Date Comments Amlodipine Edema,Swelling Medium 12/19/2020 Lisinopril Cough Low 11/22/2022 Losartan Other (See comments) Low 02/10/2023 Nightmares Penicillins Rash,Hives Medium 05/25/2018 Rash in her 30s Medications acetaminophen (TYLENOL) 325 mg tablet Take 2 tablets (650 mg total) by mouth every 4 (four) hours as needed for pain. 30 tablet 8 Active ferrous sulfate 325 mg (65 mg of elemental iron) tabletIndicatio ns:Iron Deficiency Anemia Take 1 tablet (325 mg total) by mouth daily with breakfast. 8 Active calcium carbonate-vitam in D3 (CALTRATE 600 + D) 1500 mg (600 mg elemental) -400 units per tablet Take 1 tablet by mouth nightly 1 Active atorvastatin (LIPITOR) 40 mg tablet Take 1 tablet (40 mg total) by mouth nightly 1 Active valACYclovir (VALTREX) 500 mg tablet Take 1 tablet (500 mg total) by mouth daily 1 Active clobetasoL (TEMOVATE) 0.05 % cream Apply 1 application topically as directed 1 Active latanoprost (XALATAN) 0.005 % ophthalmic solution Administer 1 drop into both eyes nightly 3 Active ALPRAZolam (XANAX) 0.25 mg tablet Take 1 tablet (0.25 mg total) by mouth as needed for anxiety 9 tablet 3 Active Simbrinza 1-0.2 % drops,suspensio n INSTILL ONE DROP INTO THE RIGHT EYE 3 TIMES A DAY 3 Active magnesium oxide (MAG-OX) 400 mg (241.3 mg elemental magnesium) tabletIndicatio ns:hypomagnesem ia Take 1 tablet (400 mg total) by mouth daily for 7 days 7 tablet 3 Active Additional Information Patient not taking.Reported on 01/20/2024 albuterol HFA (ProAir HFA) 90 mcg/actuation inhaler Inhale 2 puffs every 4 (four) hours as needed for wheezing or shortness of breath 8.5 g 5 4 025 Active omeprazole (PriLOSEC) 20 mg capsuleIndicati ons:Gastritis without bleeding, unspecified chronicity, unspecified gastritis type TAKE 1 CAPSULE BY MOUTH EVERY DAY 90 capsule 1 4 Active irbesartan (AVAPRO) 75 mg tablet Take 1 tablet (75 mg total) by mouth nightly Active metoprolol tartrate (LOPRESSOR) 25 mg immediate release tablet Take 1 tablet (25 mg total) by mouth 2 (two) times a day 180 tablet 3 5 026 Active metoprolol tartrate (LOPRESSOR) 25 mg immediate release tablet Take 1 tablet (25 mg total) by mouth 2 (two) times a day 60 tablet 5 025 Discontin ued(Reord er) Active Problems Problem Noted Date Diagnosed Date Cystitis 10/15/2024 Palpitations 10/13/2024 Shortness of breath 08/04/2023 Pneumonia of right upper lobe due to infectious organism 06/12/2023 URBANO (acute kidney injury) 06/12/2023 Screening for colon cancer 05/10/2023 Assessment & Plan (05/10/2023 11:34 AM HEATING ENGINEER): Images from the original note were not included. Dr. Guzman performed colonoscopy October 2022 next colonoscopy screening due in October of 2027 attached is October 2022 is impression and recommendations completed by Dr. Guzman Helicobacter pylori infection 01/06/2023 Assessment & Plan (07/30/2024 11:00 AM HEATING ENGINEER): EGD October 2022 with gastritis, pathology positive for H pylori. Due to allergies, patient has been referred to infectious disease for treatment of H pylori. Patient saw Infectious Disease, has been treated with clarithromycin, metronidazole, and PPI. Patient took 3 days and stopped treatment. -Patient okay with trying treatment again. Patient has an appointment with her PCP tomorrow and we will restart clarithromycin, metronidazole, and omeprazole for 10 days. -After treatment, order H pylori breath test to document eradication Assessment & Plan (10/30/2023 11:08 AM CDT): EGD October 2022 with gastritis, pathology positive for H pylori. Due to allergies, patient has been referred to infectious disease for treatment of H pylori. Patient saw Infectious Disease, has been treated with clarithromycin, metronidazole, and PPI. -she was not completed H pylori breath test, we will complete at her PCP's office and let us know the results Assessment & Plan (01/06/2023 9:26 AM CDT): EGD October 2022 with gastritis, pathology positive for H pylori. Due to allergies, patient has been referred to infectious disease for treatment of H pylori. -patient has a appointment to see infectious disease for treatment of H pylori January 2023 AVM (arteriovenous malformation) 12/23/2022 Sensorineural hearing loss (SNHL) of both ears 0 11/22/2022 Tinnitus of right ear 11/22/2022 Abnormal finding on GI tract imaging 11/19/2022 Assessment & Plan (07/30/2024 10:34 AM HEATING ENGINEER): CT scan August 2022 with thoracoabdominal dissection and dilation and low-density lesions in the pancreas measuring up to 2.4 cm, unchanged from prior exams. CT pancreas 12/2022 with 2.5 cm cystic lesion in the pancreatic neck minimally increased in size compared to studies dating back to 2018, stable 13 mm cystic lesion in the pancreatic tail. -discussed EUS, patient deferred -she was having a CT scan annually, if increases in size would recommend EUS Assessment & Plan (10/30/2023 11:07 AM CDT): CT scan August 2022 with thoracoabdominal dissection and dilation and low-density lesions in the pancreas measuring up to 2.4 cm, unchanged from prior exams. CT pancreas 12/2022 with 2.5 cm cystic lesion in the pancreatic neck minimally increased in size compared to studies dating back to 2018, stable 13 mm cystic lesion in the pancreatic tail. -discussed EUS, patient deferred -she was having a CT scan annually, if increases in size would recommend EUS Assessment & Plan (05/10/2023 11:30 AM HEATING ENGINEER): CT scan August 2022 with thoracoabdominal dissection and dilation and low-density lesions in the pancreas measuring up to 2.4 cm, unchanged from prior exams. CT scan December 2022 shows stable pancreatic cyst in the tail of the pancreas, also cystic mass in the pancreatic neck slightly increased in size compared to prior imaging. -discussed MRI of the pancreas, patient deferred, patient states she has been getting routine pancreas scans done by her PCP. We will continue to monitor her surveillance. Repeat CT 1 year for surveillance Assessment & Plan (01/06/2023 9:34 AM CDT): CT scan August 2022 with thoracoabdominal dissection and dilation and low-density lesions in the pancreas measuring up to 2.4 cm, unchanged from prior exams. -discussed MRI of the pancreas, however patient deferred -we will order CT pancreatic protocol for further evaluation Assessment & Plan (11/19/2022 10:49 AM CDT): CT scan August 2022 with thoracoabdominal dissection and dilation and low-density lesions in the pancreas measuring up to 2.4 cm, unchanged from prior exams. -discussed MRI of the pancreas, however patient deferred -we will consider CT pancreatic protocol in the future, we will discuss next visit Vitamin D deficiency 10/24/2022 Coronary atherosclerosis 08/29/2022 Iron deficiency anemia 08/09/2022 NOE (generalized anxiety disorder) 08/06/2022 Assessment & Plan (11/12/2022 9:06 AM CDT): Previously had side effects to ssri Continue xanax as needed as must keep blood pressure at goal given dissection Assessment & Plan (08/06/2022 11:10 AM HEATING ENGINEER): Uncontrolled Previously had side effects to ssri Consider buspar, she will think about Continue xanax as needed as must keep blood pressure at goal given dissection Cataract 06/18/2022 Glaucoma 06/18/2022 Malodorous urine 06/18/2022 Meniere's disease 06/18/2022 Essential hypertension 03/21/2022 Impingement syndrome of left shoulder region 09/2021 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 10/01/2021 Class 1 obesity in adult 01/04/2021 NSTEMI (non-ST elevated myocardial infarction) 0 01/03/2021 Mass of pancreas 08/30/2020 Abdominal aortic aneurysm 05/11/2020 Anxiety 01/19/2019 Chronic obstructive pulmonary disease 01/19/2019 Hypercholesterolemia 01/19/2019 Other specified anemias 01/19/2019 Hypertension 05/27/2018 Assessment & Plan (11/12/2022 9:06 AM CDT): Blood pressure at goal Continue coreg 6.25mg twice a day, 12.5mg hydrochlorothiazide, 50mg losartan Assessment & Plan (08/06/2022 10:55 AM HEATING ENGINEER): Blood pressure at goal Continue coreg 6.25mg twice a day, 12.5mg hydrochlorothiazide, 50mg losartan Assessment & Plan (05/27/2018 11:29 AM HEATING ENGINEER): In the setting of Type B dissection. [...] d/c Amlodipine - Lisinopril 5 mg daily Hypertension 05/27/2018 Overview (05/02/2023): Last Assessment & Plan: In the setting [...] twice a day, 12.5mg hydrochlorothiazide, 50mg losartan Dysphagia 05/26/2018 Assessment & Plan (05/27/2018 9:18 AM HEATING ENGINEER): Yesterday, pt c/o mild dysphagia when swallowing water. Tolerated clear liquids yesterday without coughing. Also, thyroid mass found on CT which could be a contributing factor. - Currently no swallow study indicated - Consider speech eval/swallow study if dysphagia persists or worsens w/solid food intake today Assessment & Plan (05/26/2018 9:45 AM HEATING ENGINEER): Pt c/o mild dysphagia when swallowing water. Denies coughing or a choking feeling. - advance diet to clears - consider swallow study if persists or worsens Thyroid mass of unclear etiology 05/26/2018 Assessment & Plan (11/12/2022 9:05 AM CDT): tsh within normal limits Given # to schedule ultrasound Assessment & Plan (05/27/2018 9:12 AM HEATING ENGINEER): Found incidentally on CT scan. - Thyroid ultrasound Assessment & Plan (05/26/2018 4:54 PM HEATING ENGINEER): Found incidentally on CT scan. - Thyroid ultrasound Thyroid mass 05/26/2018 Overview (05/02/2023): Last Assessment & Plan: Found incidentally on CT scan. - Thyroid ultrasound Last Assessment & Plan: Found incidentally on CT scan. - Thyroid ultrasound Aortic dissection 05/25/2018 Assessment & Plan (11/12/2022 9:05 AM CDT): Following with cardiology Annual CT scan Assessment & Plan (08/06/2022 10:46 AM HEATING ENGINEER): Following with cardiology Annual CT scan Assessment & Plan (05/27/2018 9:12 AM HEATING ENGINEER): Type B dissection. Continues to deny pain. - Keep HR <70 and SBP <120 - Advance diet to Cardiac diet - q1 hr neurovascular checks - Tylenol PRN - Morphine 2 mg IV PRN Assessment & Plan (05/26/2018 3:28 PM HEATING ENGINEER): Type B dissection. Currently denies pain. - Keep HR <70 and SBP <120 - Coreg 3.125 mg BID - Advance diet to clears - q1 hr neurovascular checks - Consult cardiology before discharge for outpatient BP and HR management (per vascular) Additional Care: 1130: Up to chair with PT. Bradycardic in the 40's and Hypertensive to the SBP 160's. Pt endorsing increased pain and nausea. Zofran given for N/V. Back to bed. Nicardipine gtt started for SBP <120. Morphine IVP PRN for pain control. 1300: Cardiology consult called. Plan to keep in ICU for today. Assessment & Plan (05/25/2018 10:46 PM HEATING ENGINEER): On OSH CT. Chest pain now resolved. -start coreg 3.125 BID while using esmolol for HR 55-70, SBP <120 -NPO -T&S completed -q1h NV checks Iron deficiency anemia 05/25/2018 Assessment & Plan (07/30/2024 10:34 AM HEATING ENGINEER): Patient has a history of iron-deficiency anemia, hemoglobin was 7.7 from labs September 2022, follows with Hematology and per patient her hemoglobin has increased to 11. Iron levels in the past have also been low, and she was receiving iron infusions with her turf farm worker, currently on oral iron supplements. Patient denies any overt GI bleeding. EGD and colonoscopy October 2022 with gastritis, 2 nonbleeding AVMs in the duodenum status post APC, normal duodenum, multiple AVMs in the cecum treated with APC, 3 benign polyps in the sigmoid and rectum, and small internal hemorrhoids. Capsule endoscopy with fair prep and 2 small nonbleeding AVMs in the ileum -discussed upper GI series with small-bowel follow-through, patient deferred -if any evidence of overt GI bleeding, we will consider enteroscopy with ablation of AVMs -continue follow up with Hematology and ferrous sulfate -repeat colonoscopy October 2027 Assessment & Plan (10/30/2023 11:06 AM CDT): Patient has a history of iron-deficiency anemia, hemoglobin was 7.7 from labs September 2022, follows with Hematology and per patient her hemoglobin has increased to 11. Iron levels in the past have also been low, and she was receiving iron infusions with her turf farm worker, currently on oral iron supplements. Patient denies any overt GI bleeding. EGD and colonoscopy October 2022 with gastritis, 2 nonbleeding AVMs in the duodenum status post APC, normal duodenum, multiple AVMs in the cecum treated with APC, 3 benign polyps in the sigmoid and rectum, and small internal hemorrhoids. Capsule endoscopy with fair prep and 2 small nonbleeding AVMs in the ileum -discussed upper GI series with small-bowel follow-through, patient deferred -if any evidence of overt GI bleeding, we will consider enteroscopy with ablation of AVMs -continue follow up with Hematology and ferrous sulfate -repeat colonoscopy October 2027 Assessment & Plan (05/10/2023 11:25 AM HEATING ENGINEER): Images from the original note were not included. Anemia has improved significantly Patient had a capsule endoscopy done since her last visit. This was inconclusive. Most recent labs from 04/29/23. Patient is seen by hematology specialist. Hemoglobin has increased significantly since September. Assessment & Plan (01/06/2023 9:36 AM CDT): Patient has a history of iron-deficiency anemia, hemoglobin was 7.7 from labs September 2022, follows with Hematology and per patient her hemoglobin has increased to 11. Iron levels in the past have also been low, and she was receiving iron infusions with her turf farm worker, currently on oral iron supplements. Patient denies any overt GI bleeding. EGD and colonoscopy October 2022 with gastritis, 2 nonbleeding AVMs in the duodenum status post APC, normal duodenum, multiple AVMs in the cecum treated with APC, 3 benign polyps in the sigmoid and rectum, and small internal hemorrhoids. -we will schedule capsule endoscopy for further evaluation -The risks (risks of bleeding, infection, perforation or capsule retention requiring surgery, missed polyps/cancer), benefits, and alternatives of the planned procedure were explained to the patient who understands and consents to having procedure done. -continue follow up with Hematology and ferrous sulfate -repeat colonoscopy October 2027 Assessment & Plan (11/19/2022 10:48 AM CDT): Patient has a history of iron-deficiency anemia, most recent hemoglobin is 7.7 from labs September 2022. States saw her turf farm worker last week in her hemoglobin has increased to 10. Iron levels in the past have also been low, and she was receiving iron infusions with her turf farm worker. Patient denies any overt GI bleeding. Patient's last EGD and colonoscopy was 12 years ago, no records available for review. -schedule EGD and colonoscopy after cardiac clearance -The risks (risks of bleeding, infection, perforation requiring surgery, missed polyps/cancer, dental injury, aspiration pneumonia, anesthesia complications such as drug reaction and cardiopulmonary complications including rare chance of ), benefits, and alternatives of the planned procedure were explained to the patient who understands and consents to having procedure done. Assessment & Plan (11/12/2022 9:06 AM CDT): Following with heme Upcoming appointment with GI Assessment & Plan (05/27/2018 11:27 AM HEATING ENGINEER): Baseline anemia. Iron studies sent today - Iron dextran IV, 200 mg x 5 day course to replete calculated iron deficit of ~ 1 gram - Will likely need a GI consult and scope outpatient Assessment & Plan (05/26/2018 9:44 AM HEATING ENGINEER): Baseline anemia. - Consider adding iron supplementation after tolerating full diet Assessment & Plan (05/25/2018 10:47 PM HEATING ENGINEER): Will consider iron supplementation in future. Trend CBC for now. Aortic dissection 05/25/2018 Overview (05/02/2023): Last Assessment & Plan: Type B dissection. Continues to deny pain. - Keep HR <70 and SBP <120 - Advance diet to Cardiac diet - q1 hr neurovascular checks - Tylenol PRN - Morphine 2 mg IV PRN Last Assessment & Plan: Following with cardiology Annual CT scan Adjustment disorder with mixed emotional feature s 03/13/2018 Bereavement 03/13/2018 Basal cell carcinoma (BCC) of face 11/08/2016 Basal cell carcinoma of skin of other parts of f shady 11/08/2016 Immunizations Immunization Administration Dates Next Due Influenza, Unspecified 04/08/2022(Deferred: Zayra ent Refused) Social History Tobacco Use Types Packs/Day Years Used Date Smoking Tobacco: Former Cigarettes 1 50 1 971 - 2020 Smokeless Tobacco: Never Tobacco Cessation:Counseling Given: Not Answered Alcohol Use Standard Drinks/Week Comments No 0 (1 standard drink = 0.6 oz pur e alcohol) [facility] Utilities Answer Date Recorded In the past 12 months has e [employer], gas, oil, or water [employer] threatened to shut off services in your [...] often do you attend chur ch or congregational services? 1 to 4 times per year 10/14/2024 Do you belong to any clubs o r organizations such as sikhism groups, unions, fraternal or athletic groups, or [...] place to sleep or slept in a fpc (including now)? No 06/13/2023 Housing Stability Vital Sign Answer Edin e Recorded In the last 12 months, was t here a time when you were not able to pay the mortgage or rent on time? No 10/14/2024 In the past 12 months, how m any times have you moved where you were living? 0 10/14/2024 At any time in the past 12 m [facility], were you homeless or living in a fpc (including now)? No 10/14/2024 Personal Safety Answer [...] Orientation Straight 02/06/2020 4: 21 PM CDT Last Filed Vital Signs Vital Sign Reading Time Taken Comments Blood Pressure 130/77 10/26/2024 1:42 PM CDT Pulse 75 10/26/2024 1:42 PM CDT Temperature 36.9 C (98.4 F) 10/15/2024 11:23 AM CDT Respiratory Rate 16 10/15/2024 11:23 AM CDT Oxygen Saturation 97% 10/26/2024 1:42 PM CDT Inhaled Oxygen Concentration - - Weight 81.2 kg (179 lb) 10/26/2024 1:42 PM CDT Height 165.1 cm (5' 5 ) 10/26/2024 1:42 PM CDT Body Mass Index 29.79 10/26/2024 1:42 PM CDT Plan of Treatment Not on file Procedures Procedure Name Priority Date/Time Associated Diagnosis Comments CTA CHEST ABDOMEN PELVIS IP Routine 10/14/2024 3:45 PM CDT TRANSTHORACIC ECHO (TTE) COMPLETE W DOPPLER/CF WO CONTRAST Routine 10/14/2024 2:45 PM CDT MAGNESIUM Routine 10/14/2024 5:13 AM CDT EGFR Routine 10/14/2024 5:13 AM CDT DIFFERENTIAL AUTO Routine 10/14/2024 5:1 3 AM CDT CBC WITH AUTO DIFFERENTIAL Routine 10/14/2024 5:13 AM CDT COMPREHENSIVE METABOLIC PANEL Routine 10/14/2024 5:13 AM CDT TROPONIN T HIGH-SENSITIVITY 6-HOUR Timed 10/13/2024 9:13 PM CDT TROPONIN T HIGH-SENSITIVITY 4-HR Timed 10/13/2024 7:06 PM CDT URINALYSIS, MICROSCOPIC ONLY STAT 10/13/2024 6:05 PM CDT URINE CULTURE STAT 10/13/2024 6:05 PM CDT URINALYSIS AND REFLEX TO MICROSCOPIC AND CULTURE STAT 10/13/2024 6:05 PM CDT TROPONIN T HIGH-SENSITIVITY 2-HOUR Timed 10/13/2024 5:20 PM CDT XR CHEST 1 VIEW ED 10/13/2024 3:27 PM CDT THYROID FUNCTION CASCADE STAT 10/13/2024 3:08 PM CDT EGFR STAT 10/13/2024 3:08 PM CDT DIFFERENTIAL AUTO STAT 10/13/2024 3:0 8 PM CDT TROPONIN T HIGH-SENSITIVITY SERIES (BASELINE, 2HR, 4HR, 6HR) STAT 10/13/2024 3:08 PM CDT COMPREHENSIVE METABOLIC PANEL STAT 10/13/2024 3:08 PM CDT CBC WITH AUTO DIFFERENTIAL STAT 10/13/2024 3:08 PM CDT ECG 12-LEAD STAT 10/13/2024 3:03 PM CDT COLONOSCOPY 11/27/2022 8:34 AM CDT from Last 3 Months or Most Recently Relevant to Health Maintenance Results * CTA Chest Abdomen Pelvis (10/14/2024 3:45 PM CDT) Anatomical Region Laterality Modality Body N/A Computed Tomogra phy 10/14/2024 9:00 PM CDT Narrative 10/14/2024 9:31 PM CDT EXAM DESCRIPTION: CTA CHEST ABDOMEN PELVIS REASON FOR STUDY: Type B aortic dissection No prior history of coronary artery disease. Patient has type B aortic dissection since 2018. This was discovered with imaging at the time that she had back pain. She is followed by vascular surgeon Dr. Dumont. Primary weather clerk is Dr. Abrams at [facility] in [place]. Her most recent CTA of chest/abdomen/pelvis found a decrease in size compared to prior. Please see below. 01/20/2024 CTA chest/abdomen/pelvis: There is a combined arch of the innominate and subclavian. There is a redemonstrated type B aortic dissection extending from distal to the left subclavian artery inferiorly to the level of L3. The origin of the dissection flap, the aorta measures 4.0 x 4.1 cm, which is slightly decreased in size (previously 4.3 x 4.6 cm when measured at a similar level). At the hiatus, the aorta measures 3.7 x 4.1 cm, which is also slightly decreased in size (previously 4.1 x 4.5 cm). Past medical has well of hypertension, mild aortic stenosis, COPD, hyperlipidemia, anemia. She had palpitations for the past week that was on and off. She said that she had that in the past and her doctor changed some of her medication. She said that this week was all week on and off lasting few minutes. And it was getting worse, so she decided to go to the ER. It was associated with lightheadedness. She denies chest pain or shortness of breath. She denies syncope or presyncope. No orthopnea, PND or leg swelling. No back pain. In the ER was found to have acute cystitis and was started on IV antibiotic. It was witnessed in the ER 1 episode of NSVT that was short duration and resolved spontaneously. No rhythm strip available to review. Patient quit smoking 4 years ago. No family history of coronary artery disease. Brother who from TAVR infection complication. No CAD. TECHNIQUE: CTA scan of the chest, abdomen, and pelvis performed without and with intravenous and without oral contrast using helical scanning technique with dynamic intravenous contrast injection. Precontrast images of the chest were acquired. Arterial phase images of the chest, abdomen, and pelvis as well as portal venous phase images of the abdomen were also acquired. Reconstructed coronal and sagittal MPR images reviewed. All images stored on PACS. 3D MIP images rendered on scanning unit and reviewed at time of interpretation. Automated exposure control was used as a dose optimization technique for this examination. CONTRAST TYPE/DOSE: 100mL of IOVERSOL 350 MG IODINE/ML INTRAVENOUS SYRINGE injected via intravenous COMPARISON: 01/20/2024 FINDINGS: VASCULATURE Redemonstrated is type B aortic dissection originating at the level of the distal arch which extends inferior to the abdomen to the level of L3. The appearance of the dissection is grossly unchanged compared to the prior examination. The descending aorta measures approximately 4.9 cm on the coronal reconstructions, unchanged. On axial images prior to the hiatus measures approximately 5.3 x 4.7 cm, previously approximately 5.3 x 4.6 cm. There is calcification of the aortic leaflets. The ascending aorta is normal caliber. Patent 2 vessel arch. Celiac, superior mesenteric and left renal arteries originate from the true lumen without significant stenosis. The right renal artery appears to originate from the false lumen with no significant enhancement on the arterial phase images. On the more delayed phase of images there is increased flow noted within the false lumen with flow seen within the right renal artery. Associated delayed right nephrogram. Patent inferior mesenteric artery. The dissection does not extend into the iliac bifurcation. The iliac arteries are patent without significant stenosis. CHEST LUNGS: Moderate emphysema. Biapical pleuroparenchymal scarring is seen. Minimal peripheral reticulation is seen as evidence for scarring. Linear atelectasis scarring along the minor fissure is unchanged. PLEURA: No effusion. No pneumothorax. MEDIASTINUM/RODRIGO: Nodular thyroid is seen extending to the mediastinum, unchanged. No discrete mediastinal or hilar lymphadenopathy is seen HEART: The heart is normal in size. Trace pericardial effusion is seen. Coronary calcification is seen on the noncontrast images. AXILLA: No adenopathy. CHEST WALL: No masses. No subcutaneous air. HARDWARE/LINES/TUBES: None. MUSCULOSKELETAL CHEST: No significant abnormality. ABDOMEN/PELVIS LIVER: The liver is normal in size. No definite liver lesion is seen. GALLBLADDER: Partially distended BILE DUCTS: No gross biliary ductal dilatation. SPLEEN: Normal size. No focal lesions. PANCREAS: The pancreas is normal in size. A 2.0 x 1.3 cm cystic lesion within the tail of the pancreas, previously measured approximately 2.0 x 1.2 cm (series 11, 40). A 10 mm hypoattenuating lesion within the body anteriorly is grossly stable (35). A lobulated hypoattenuating mass within the anterior neck measuring approximately 2.9 x 1.8 cm, previously measured approximately 2.9 x 1.7 cm (52). ADRENALS: Normal. KIDNEYS/URINARY TRACT: The kidneys are normal in size. Delayed right nephrogram is again noted. Prominent left collecting system is seen without overt hydronephrosis. Likely left peripelvic cysts. Urinary bladder is decompressed. GI: There is stool throughout the colon which appears nondilated. The appendix is nondilated. Thickening of a decompressed esophagus is likely due to underdistension. The stomach is partially distended. The small bowel is nondilated without evidence of a small bowel obstruction. PERITONEUM: No free air. No ascites is seen. No mesenteric lymphadenopathy is seen. RETROPERITONEUM: Subcentimeter retroperitoneal lymph nodes are noted. No lymphadenopathy. REPRODUCTIVE: No significant abnormality. MUSCULOSKELETAL ABDOMEN PELVIS: No acute finding. OTHER: No significant abnormality. IMPRESSION: 1. Grossly unchanged appearance of a chronic type B aortic dissection extending to the infrarenal aorta compared to 01/20/2024. 2. Chronic right thyroid goiter extending to the mediastinum. 3. 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 4. Additional chronic findings as above. THIS IS AN ELECTRONICALLY VERIFIED FINAL REPORT 10/14/2024 9:31 PM - Electronically signed by Bruno Marrero M.D. AG: XIMENA Report ID: [id number] Reading Location: [place] [address] Procedure Note Bruno Marrero MD - 10/14/2024 EXAM DESCRIPTION: CTA CHEST ABDOMEN PELVIS REASON FOR STUDY: Type B aortic dissection No prior history of coronary artery disease. Patient has type B aortic dissection since 2018. This was discovered with imaging at the time thatshe had back pain. She is followed by vascular surgeon Dr. Dumont. Primary weather clerk is Dr. Abrams at [facility] in [place].Her most recent CTA of chest/abdomen/pelvis found a decrease in size comparedto prior. Please see below. 01/20/2024 CTA chest/abdomen/pelvis:There is a combined arch of the innominate and subclavian. There is a redemonstrated type B aortic dissection extending from distal to the left subclavian artery inferiorly to the level of L3. The origin of thedissection flap, the aorta measures 4.0 x 4.1 cm, which is slightly decreased insize (previously 4.3 x 4.6 cm when measured at a similar level). At thehiatus, the aorta measures 3.7 x 4.1 cm, which is also slightly decreased in size (previously 4.1 x 4.5 cm). Past medical has well of hypertension, mild aortic stenosis, COPD, hyperlipidemia, anemia. She had palpitationsfor the past week that was on and off. She said that she had that in the pastand her doctor changed some of her medication. She said that this week wasall week on and off lasting few minutes. And it was getting worse, so she decided to go to the ER. It was associated with lightheadedness. Shedenies chest pain or shortness of breath. She denies syncope or presyncope. No orthopnea, PND or leg swelling. No back pain. In the ER was found tohave acute cystitis and was started on IV antibiotic. It was witnessed in theER 1 episode of NSVT that was short duration and resolved spontaneously. Norhythm strip available to review. Patient quit smoking 4 years ago. Nofamily history of coronary artery disease. Brother who from TAVR infection complication. No CAD. TECHNIQUE: CTA scan of the chest, abdomen, and pelvis performed withoutand with intravenous and without oral contrast using helical scanningtechnique with dynamic intravenous contrast injection. Precontrast images of thechest were acquired. Arterial phase images of the chest, abdomen, and pelvis aswell as portal venous phase images of the abdomen were also acquired.Reconstructed coronal and sagittal MPR images reviewed. All images stored on PACS. 3DMIP images rendered on scanning unit and reviewed at time of interpretation. Automated exposure control was used as a dose optimization technique forthis examination. CONTRAST TYPE/DOSE: 100mL of IOVERSOL 350 MG IODINE/ML INTRAVENOUS SYRINGE injected via intravenous COMPARISON: 01/20/2024 FINDINGS: VASCULATURE Redemonstrated is type B aortic dissection originating at the level of the distal arch which extends inferior to the abdomen to the level of L3. The appearance of the dissection is grossly unchanged compared to the prior examination. The descending aorta measures approximately 4.9 cm on the coronal reconstructions, unchanged. On axial images prior to the hiatus measures approximately 5.3 x 4.7 cm, previously approximately 5.3 x 4.6cm. There is calcification of the aortic leaflets. The ascending aorta isnormal caliber. Patent 2 vessel arch. Celiac, superior mesenteric and leftrenal arteries originate from the true lumen without significant stenosis. The right renal artery appears to originate from the false lumen with no significant enhancement on the arterial phase images. On the more delayed phase of images there is increased flow noted within the false lumen withflow seen within the right renal artery. Associated delayed right nephrogram. Patent inferior mesenteric artery. The dissection does not extend intothe iliac bifurcation. The iliac arteries are patent without significant stenosis. CHEST LUNGS: Moderate emphysema. Biapical pleuroparenchymal scarring is seen. Minimal peripheral reticulation is seen as evidence for scarring. Linear atelectasis scarring along the minor fissure is unchanged. PLEURA: No effusion. No pneumothorax. MEDIASTINUM/RODRIGO: Nodular thyroid is seen extending to the mediastinum, unchanged. No discrete mediastinal or hilar lymphadenopathy is seen HEART: The heart is normal in size. Trace pericardial effusion is seen. Coronary calcification is seen on the noncontrast images. AXILLA: No adenopathy. CHEST WALL: No masses. No subcutaneous air. HARDWARE/LINES/TUBES: None. MUSCULOSKELETAL CHEST: No significant abnormality. ABDOMEN/PELVIS LIVER: The liver is normal in size. No definite liver lesion is seen. GALLBLADDER: Partially distended BILE DUCTS: No gross biliary ductal dilatation. SPLEEN: Normal size. No focal lesions. PANCREAS: The pancreas is normal in size. A 2.0 x 1.3 cm cystic lesion within the tail of the pancreas, previously measured approximately 2.0 x1.2 cm (series 11, 40). A 10 mm hypoattenuating lesion within the bodyanteriorly is grossly stable (35). A lobulated hypoattenuating mass within theanterior neck measuring approximately 2.9 x 1.8 cm, previously measuredapproximately 2.9 x 1.7 cm (52). ADRENALS: Normal. KIDNEYS/URINARY TRACT: The kidneys are normal in size. Delayed right nephrogram is again noted. Prominent left collecting system is seenwithout overt hydronephrosis. Likely left peripelvic cysts. Urinary bladder is decompressed. GI: There is stool throughout the colon which appears nondilated. The appendix is nondilated. Thickening of a decompressed esophagus is likelydue to underdistension. The stomach is partially distended. The small bowelis nondilated without evidence of a small bowel obstruction. PERITONEUM: No free air. No ascites is seen. No mesentericlymphadenopathy is seen. RETROPERITONEUM: Subcentimeter retroperitoneal lymph nodes are noted. No lymphadenopathy. REPRODUCTIVE: No significant abnormality. MUSCULOSKELETAL ABDOMEN PELVIS: No acute finding. OTHER: No significant abnormality. IMPRESSION: 1. Grossly unchanged appearance of a chronic type B aortic dissection extending to the infrarenal aorta compared to 01/20/2024. 2. Chronic right thyroid goiter extending to the mediastinum. 3. 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 4. Additional chronic findings as above. THIS IS AN ELECTRONICALLY VERIFIED FINAL REPORT 10/14/2024 9:31 PM - Electronically signed by Bruno Marrero M.D. AG: AG Report ID: [id number] Reading Location: [id number] us Patience Hung MD IMG CT PROCEDURES Final R esult * TRANSTHORACIC ECHO (TTE) COMPLETE W DOPPLER/CF WO CONTRAST (10/14/2024 2:45 PM CDT) Anatomical Region Laterality Modality Ultrasound 10/14/2024 2:17 PM CDT Narrative 10/15/2024 9:58 AM CDT Transthoracic Echocardiographic Report Patient Name: TIGRE PARRY J : 1950 (74y 4m) Gender: F Study Date: 10/14/2024 02:17:34 PM Ht(Inch): 65 Wt(Lb): 178 BSA: 1.92 Warping Machine Operator: Leah Welsh RDCS Location: [id number] Order Provider: LOCO RUSSELL Heart Rate: 66 BMI: 29.62 BP: 145 / 89 Ref Provider: LOCO RUSSELL PROCEDURES: Echocardiographic Report: ([id number]) Transthoracic complete echo, 2D, spectral and tissue Doppler, color flow Doppler, M-mode. INDICATIONS: nonsustained Vtach. FINDINGS: Left Ventricle: Normal left ventricular cavity size. Normal Left ventricular wall thickness. Normal left ventricular systolic function. LVEF estimated at 60-65%. Normal wall motion. Right Ventricle: Normal right ventricular size. Normal right ventricular systolic function. Left Atrium: Mildly dilated left atrium. Right Atrium: The right atrium is normal in size. Mitral Valve: Mild mitral annular calcification. There is trace mitral valve regurgitation. No mitral valve stenosis. Aortic Valve: Trileaflet aortic valve. No aortic regurgitation seen. Mild aortic valve sclerosis. No aortic stenosis. Tricuspid Valve: The tricuspid valve demonstrates normal leaflet structure. No tricuspid regurgitation seen. Pulmonic Valve: No evidence of pulmonic regurgitation. Pericardium: No pericardial effusion. CONCLUSIONS: 1. Normal left ventricular systolic function. LVEF estimated at 60-65%. Normal wall motion. 2. Mildly dilated left atrium. 3. Mild aortic valve sclerosis. No aortic stenosis. MEASUREMENTS: 2D/MM Value Range Doppler Value LVIDd 2D 4.03 cm [ 3.50 - 5.70 ] AV Peak Oleg 2.04 m/s LVIDs 2D 2.89 cm [ 3.10 - 4.60 ] AV Peak PG 16.65 mmHg IVSd 2D 1.35 cm [ 0.60 - 1.20 ] AV Mean PG 8.00 mmHg LVPWd 2D 0.99 cm [ 0.60 - 1.10 ] AV VTI 42.40 cm LV Thickness Ratio 1.36 LVOT Peak Oleg 0.99 m/s LV Mass 2D 163.29 g LVOT Peak PG 3.92 mmHg LV Mass Index 2D 85.05 g/m2 LVOT Mean PG 2.00 mmHg RWT 0.49 LVOT VTI 24.60 cm TAPSE 2.78 cm [ 1.71 - 5.00 ] LVOT Diam 2.00 cm DIANNE VTI 1.82 cm2 DIANNE Vmax 1.52 cm2 LVOT/AV VTI 0.58 - Dimensionless index (DVI) MV E Peak Oleg 1.13 m/s MV A Peak Oleg 1.22 m/s MV E/A 0.90 ratio MV Decel Time 243.00 msec Med E` Oleg 7.40 cm/sec Lat E` Oleg 5.98 cm/sec Average E/E` 16.89 RV S` 14.60 cm/sec PV Peak Oleg 1.14 m/s PV Peak PG 5.20 mmHg - ATTESTATION: I have reviewed and interpreted the pertinent images and measurements of this study. I attest to the conclusions in the final report that is provided above. DISCLAIMER: The study images and the final report will be retained in the patient chart by the [facility] for the legally required time period. This chart constitutes the legal record of any testing performed. Electronically Signed By: Patience Hung MD 10/15/2024 9:57:34 AM CDT Procedure Note Patience Hung MD - 10/15/2024 Transthoracic Echocardiographic Report Patient Name: TIGRE PARRY J : 1950 (74y 4m) Gender: F Study Date: 10/14/2024 02:17:34 PM Ht(Inch): 65 Wt(Lb): 178 BSA: 1.92 Warping Machine Operator: Leah Welsh RDCS Location: [place] [address] Order Provider:LOCO RUSSELL Heart Rate: 66 BMI: 29.62 BP: 145 / 89 Ref Provider: LOCO RUSSELL PROCEDURES: Echocardiographic Report: ([id number]) Transthoracic complete echo, 2D,spectral and tissue Doppler, color flow Doppler, M-mode. INDICATIONS: nonsustained Vtach. FINDINGS: Left Ventricle: Normal left ventricular cavity size. Normal Leftventricular wall thickness. Normal left ventricular systolic function. LVEF estimated at60-65%. Normal wall motion. Right Ventricle: Normal right ventricular size. Normal right ventricularsystolic function. Left Atrium: Mildly dilated left atrium. Right Atrium: The right atrium is normal in size. Mitral Valve: Mild mitral annular calcification. There is trace mitralvalve regurgitation. No mitral valve stenosis. Aortic Valve: Trileaflet aortic valve. No aortic regurgitation seen. Mildaortic valve sclerosis. No aortic stenosis. Tricuspid Valve: The tricuspid valve demonstrates normal leafletstructure. No tricuspid regurgitation seen. Pulmonic Valve: No evidence of pulmonic regurgitation. Pericardium: No pericardial effusion. CONCLUSIONS: 1. Normal left ventricular systolic function. LVEF estimated at 60-65%.Normal wall motion. 2. Mildly dilated left atrium. 3. Mild aortic valve sclerosis. No aortic stenosis. MEASUREMENTS: 2D/MM Value Range DopplerValue LVIDd 2D 4.03 cm [ 3.50 - 5.70 ] AV Peak Vel2.04 m/s LVIDs 2D 2.89 cm [ 3.10 - 4.60 ] AV Peak PG16.65 mmHg IVSd 2D 1.35 cm [ 0.60 - 1.20 ] AV Mean PG8.00 mmHg LVPWd 2D 0.99 cm [ 0.60 - 1.10 ] AV VTI42.40 cm LV Thickness Ratio 1.36 LVOT Peak Vel0.99 m/s LV Mass 2D 163.29 g LVOT Peak PG3.92 mmHg LV Mass Index 2D 85.05 g/m2 LVOT Mean PG2.00 mmHg RWT 0.49 LVOT VTI24.60 cm TAPSE 2.78 cm [ 1.71 - 5.00 ] LVOT Diam2.00 cm DIANNE VTI 1.82 cm2 DIANNE Vmax 1.52 cm2 LVOT/AV VTI 0.58 - Dimensionless index (DVI) MV E Peak Oleg 1.13 m/s MV A Peak Oleg 1.22 m/s MV E/A 0.90 ratio MV Decel Time 243.00 msec Med E` Oleg 7.40 cm/sec Lat E` Oleg 5.98 cm/sec Average E/E` 16.89 RV S` 14.60 cm/sec PV Peak Oleg 1.14 m/s PV Peak PG 5.20 mmHg - ATTESTATION: I have reviewed and interpreted the pertinent images and measurements ofthis study. I attest to the conclusions in the final report that is provided above. DISCLAIMER: The study images and the final report will be retained in the patientchart by the [facility] for the legally required time period. This chart constitutesthe legal record of any testing performed. Electronically Signed By: Patience Hung MD 10/15/2024 9:57:34 AM CDT us Loco Russell MD CV ECHO PROCEDURES F inal Result * eGFR (10/14/2024 5:13 AM CDT) eGFR 76 >=60 mL/min/1. 73 m2 Comment: Interpretive Data Reference Interval Normal >/= 90 mL/min/1.73m2 Mildly decreased* 60 - 89 mL/min/1.73m2 Mildly to moderately decreased 45 - 59 mL/min/1.73m2 Moderately to severely decreased 30 - 44 mL/min/1.73m2 Severely decreased 15 - 29 mL/min/1.73m2 Kidney Failure < 15 mL/min/1.73m2 *Relative to young adult level Estimated glomerular filtration rate is determined by the 2020 CKD-EPI equation recommended by the National Kidney Foundation (A Unifying Approach to GFR Estimation: Recommendations of the NKF-ASK Task Force on Reassessing the Inclusion of Race in Diagnosing Kidney Disease, JASN 2020). The CKD-EPI equation should not be used for patients with unstable renal function and has not been validated in children and those over 70. Current interpretive data was last reviewed 2021. Testing performed by: [facility], [address] [place] [address], [place]., [address] Blood 10/14/2024 5:13 AM CDT 10/14/2024 5:25 AM CDT us Loco Russell MD LAB BLOOD ORDERABLES Final Result [facility] [address] [facility] Department [place] [address] * Differential, auto (10/14/2024 5:13 AM CDT) Neutrophil abs 2.90 1.50 - 6.50 K/cumm Comment:Testing performed by : [address] [address] Imm gran abs 0.02 0.00 - 0.10 K/cumm SILAS Comment:Testing performed by : [address] [address] Lymphocyte abs 1.03 0.80 - 3.30 K/cumm SILAS Comment:Testing performed by : [address] [address] Monocyte abs 0.56 0.20 - 0.80 K/cumm SILAS Comment:Testing performed by : [address] [address] Eosinophil abs 0.13 0.00 - 0.50 K/cumm [facility] Comment:Testing performed by : [address] [address] Basophil abs 0.03 0.00 - 0.10 K/cumm [facility] Comment:Testing performed by : [address] [address] Neutrophil pct 62.1 % [facility] Comment: Interpretive Data Percent cell count reference ranges are not reported, since discordance with absolute values may lead to misinterpretation of CBC data. Current Interpretive Data was last revised on 2017. Testing performed by: [address] [address] Imm gran pct 0.4 % [facility] Comment: Interpretive Data Percent cell count reference ranges are not reported, since discordance with absolute values may lead to misinterpretation of CBC data. Current Interpretive Data was last revised on 2017. Testing performed by: [address] [address] Lymphocyte pct 22.1 % [facility] Comment: Interpretive Data Percent cell count reference ranges are not reported, since discordance with absolute values may lead to misinterpretation of CBC data. Current Interpretive Data was last revised on 2017. Testing performed by: [address] [address] Monocyte pct 12.0 % [facility] Comment: Interpretive Data Percent cell count reference ranges are not reported, since discordance with absolute values may lead to misinterpretation of CBC data. Current Interpretive Data was last revised on 2017. Testing performed by: [address] [address] Eosinophil pct 2.8 % [facility] Comment: Interpretive Data Percent cell count reference ranges are not reported, since discordance with absolute values may lead to misinterpretation of CBC data. Current Interpretive Data was last revised on 2017. Testing performed by: [address] [address] Basophil pct 0.6 % [facility] Comment: Interpretive Data Percent cell count reference ranges are not reported, since discordance with absolute values may lead to misinterpretation of CBC data. Current Interpretive Data was last revised on 2017. Testing performed by: [address] [address] Blood 10/14/2024 5:13 AM CDT 10/14/2024 5:25 AM CDT Loco Russell MD LAB BLOOD ORDERABLES Final Result [facility] [address] [facility] Department [place] [address] * (ABNORMAL) CBC with auto differential (10/14/2024 5:13 AM CDT) WBC 4.67 3.80 - 9.90 K/cumm Comment:Testing performed by : [address] [address] Hgb 10.9(L) 11.9 - 15.5 g/dL IS[facility] Comment:Testing performed by : [address] [address] Hct 34.2(L) 35.6 - 45.5 % [facility] Comment:Testing performed by : [address], [address] Plt 193 150 - 400 K/cumm [facility] Comment:Testing performed by : [address] [address] MPV 10.5 9.1 - 12.3 fL [facility] Comment:Testing performed by : [address], [address] RBC 3.64(L) 3.90 - 5.20 M/cumm [facility]AS Comment:Testing performed by : [address], [address] MCV 94.0 81.3 - 96.4 fL [facility] Comment:Testing performed by : [address], [address] MCH 29.9 27.1 - 33.3 pg [facility]AS Comment:Testing performed by : [address], [address] MCHC 31.9(L) 32.3 - 35.7 g/dL [facility] Comment:Testing performed by : [address], [address] RDW CV 13.5 11.1 - 14.9 % [facility] Comment:Testing performed by : [address], [address] RDW SD 46.2 35.7 - 48.1 fL [facility] Comment:Testing performed by : [address], [address] NRBC abs 0.00 0.00 - 0.01 K/cumm [facility] Comment:Testing performed by : [address], [address] Blood 10/14/2024 5:13 AM CDT 10/14/2024 5:25 AM CDT Loco Russell MD LAB BLOOD ORDERABLES Final Result Performing Organization Address City/State/[facility] Co de Phone Number SILAS [address] [facility] [place] [address] * Magnesium (10/14/2024 5:13 AM CDT) [facility] Magnesium 2.2 1.4 - 2.5 mg/dL Comment:Testing performed by : [address] [address] Blood 10/14/2024 5:13 AM CDT 10/14/2024 5:25 AM CDT us Shruthi Driver MD LAB BLOOD ORDERABLES Final Res ult Performing Organization Address [facility] Co de Phone Number SILAS [address] [place] [address] * (ABNORMAL) Comprehensive metabolic panel (10/14/2024 5:13 AM CDT) [facility] Sodium 141 135 - 145 mmol/L Comment:Testing performed by : [address] [address] Potassium, pl 4.0 3.3 - 4.9 mmol/L [facility] Comment:Testing performed by : [address] [address] Chloride 107 97 - 110 mmol/L [facility] Comment:Testing performed by : [address] [address] CO2 26 22 - 32 mmol/L [facility] Comment:Testing performed by : [address] [address] Anion gap 8 2 - 15 mmol/L [facility] Comment:Testing performed by : [address] [address] BUN 20 6 - 25 mg/dL [facility] Comment:Testing performed by : [address] [address] Creatinine 0.81 0.60 - 1.10 mg/dL [facility] Comment:Testing performed by : [address] [address] Glucose 100 70 - 199 mg/dL [facility] Comment: Interpretive Data Fasting glucose >/= 126 mg/dl is diagnostic for diabetes. Fasting is defined as no caloric intake for at least 8 hours. Fasting glucose between 100 mg/dl to 125 mg/dl is diagnostic of prediabetes. In a patient with classic symptoms of hyperglycemia or hyperglycemic crisis, a random glucose >/= 200 mg/dl is diagnostic for diabetes. In the absence of unequivocal hyperglycemia, results should be confirmed by repeat testing. The classification and Diagnosis of Diabetes Diabetes Care 2021; 46: S19-S40. Current interpretive data was last revised 2022. Testing performed by: [address] [address] Calcium 9.4 8.5 - 10.3 mg/dL [facility] Comment:Testing performed by : [address] [address] Bilirubin, total 0.2 0.1 - 1.2 mg/dL [facility] Comment:Testing performed by : [address] [address] Protein, pl 6.3(L) 6.5 - 8.5 g/dL [facility] Comment:Testing performed by : [address] [address] Albumin 3.9 3.5 - 5.0 g/dL [facility] Comment:Testing performed by : [address] [address] Alk phos 73 40 - 130 Units/L [facility] Comment:Testing performed by : [address] [address] ALT 27 7 - 45 Units/L [facility] Comment:Testing performed by : [address] [address] AST 28 10 - 45 Units/L SILAS Comment:Testing performed by : [address] [address] Blood 10/14/2024 5:13 AM CDT 10/14/2024 5:25 AM CDT Loco Russell MD LAB BLOOD ORDERABLES Final Result Performing Organization Address City/[facility]/ZIP Co de Phone Number [address] [address] * Troponin T high-sensitivity 6-hour (10/13/2024 9:13 PM CDT) Trop T hs 12 <=14 ng/L Comment: Interpretive Data For further hscTnT resources including the diagnostic algorithm and an aid in interpretation, copy and paste this link: https://nrl.[employer].org/show/hsTrop Current Interpretive Data last revised 2020. Testing performed by: [address] [address] Trop T hs delta 5 ng/L SILAS MARI Comment:Testing performed by : [address] [address] Trop T hs interp Equivocal SILAS Comment:Testing performed by : [address] [address] Blood 10/13/2024 9:13 PM CDT 10/13/2024 9:17 PM CDT us Vish Valdez MD LAB BLOOD ORDERABLES Final Resul t Performing Organization Address City/[facility] Co de Phone Number [address] [place] [address] * Troponin T high-sensitivity 4-hour (10/13/2024 7:06 PM CDT) Trop T hs 8 <=14 ng/L Comment: Interpretive Data For further hscTnT resources including the diagnostic algorithm and an aid in interpretation, copy and paste this link: https://nrl.[employer].org/show/hsTrop Current Interpretive Data last revised 2020. Testing performed by: [address] [address] Trop T hs delta 1 ng/L SILAS Comment:Testing performed by : [address] [address] Trop T hs interp Insignificant CERNER MH Comment:Testing performed by : [address] [address] Blood 10/13/2024 7:06 PM CDT 10/13/2024 7:12 PM CDT us Vish Valdez MD LAB BLOOD ORDERABLES Final Resul t SILAS [address] [facility] [place] [address] * (ABNORMAL) Urinalysis reflex to microscopic and culture Urine (10/13/2024 6:05 PM CDT) Color, ur Straw Yellow Comment:Testing performed by : [address] [address] Clarity, ur Clear Clear SILAS Comment:Testing performed by : [address] [address] Specific gravity, ur 1.008 1.003 - 1.030 SILAS Comment:Testing performed by : [address] [address] pH, urine 7.5 SILAS Comment: Interpretive Data U rine pH is affected by diet, medications, systemic acid-base disturbances, and renal tubular function. pH may affect urinary stone formation. For example, urine pH below 6.0 may help reduce the tendency for calcium phosphate stones and pH greater than 6.0 may reduce the tendency for uric acid stone formation. Source: [employer] [facility] [employer] Current Interpretive Data was last revised on 2017 Testing performed by: [address] [address] Protein, ur ql Negative Negative SILAS MARI Comment:Testing performed by : [address] [address] Glucose, ur ql Negative Negative SILAS MARI Comment:Testing performed by : [address] [address] Ketones, ur Negative Negative SILAS MARI Comment:Testing performed by : [address] [address] Bilirubin, ur Negative Negative SILAS MARI Comment:Testing performed by : [facility], [address] [place] [address], [place]., [address] Blood, ur Negative Negative SILAS MARI Comment:Testing performed by : [address], [place]., [address] Urobilinogen, ur <2.0 <2.0 mg/dL SILAS MARI Comment:Testing performed by : [address], [place]., [address] Nitrite, ur Negative Negative SILAS MARI Comment:Testing performed by : [address], [place]., [address] Leukocyte esterase, ur 3+(A) Negative SILAS MARI Comment:Testing performed by : [address], [place]., [address] UA reflex comment Reflex to microscopic UA will be performed. SILAS MARI Comment:Testing performed by : [address], [place]., [address] Urine 10/13/2024 6:05 PM CDT 10/13/2024 6:08 PM CDT Mouna SALAZAR LAB MICROBIOLOGY - GENERAL GOPI MISHRA Final Result SILAS MARI [address] [facility] Department of Laboratories [place], [place] [id number] * (ABNORMAL) Urinalysis, microscopic only (10/13/2024 6:05 PM CDT) WBC, ur 11-20(A) 0 - 5 /HPF Comment:Testing performed by : [address] [address] RBC, ur 0-2 0 - 2 /HPF SILAS MARI Comment:Testing performed by : [address] [address] Epithelial cells, squamous, ur 1-5 0 - 5 /HPF SILAS MARI Comment:Testing performed by : [address] [address] Culture Reflex Comment Reflex to urine culture will be performed. SILAS MARI Comment:Testing performed by : [address] [address] Urine 10/13/2024 6:05 PM CDT 10/13/2024 6:08 PM CDT Mouna SALAZAR LAB URINE ORDERABLES Final Resu lt Performing Organization Address City/[facility] Co de Phone Number [address]AN[address] [place] [address] * Urine culture Urine (10/13/2024 6:05 PM CDT) Report Final Report: Less than 100,000 colonies/mL (clinically insignificant growth based on current clinical standards) Comment:Testing performed by : [facility], [address] [place]., [address] Organism (CLINICALLY INSIGNIFICANT GROWTH SILAS Urine 10/13/2024 6:05 PM CDT 10/13/2024 9:54 PM CDT Narrative SILAS - 10/15/2024 8:40 AM CDT Urine culture reflexed based upon urinalysis results. Testing performed by [facility] Microbiology Laboratory ([phone]) Mouna SALAZAR LAB MICROBIOLOGY - GENERAL ORDE RABLES Final Result Performing Organization Address [facility] Co de Phone Number [place] [address] [facility] [place] [address] * Troponin T high-sensitivity 2-hour (10/13/2024 5:20 PM CDT) Trop T hs 7 <=14 ng/L Comment: Interpretive Data For further hscTnT resources including the diagnostic algorithm and an aid in interpretation, copy and paste this link: https://nrl.[employer]catalog.org/show/hsTrop Current Interpretive Data last revised 2020. Testing performed by: [address] [address] Trop T hs delta 0 ng/L SILAS Comment:Testing performed by : [address] [place] [address] Trop T hs interp Insignificant SILAS MARI Comment:Testing performed by : [facility], [address] [place] [address]., [address] Blood 10/13/2024 5:20 PM CDT 10/13/2024 5:32 PM CDT us Vish Valdez MD LAB BLOOD ORDERABLES Final Resul t SILAS [address] [facility] Department [place] [address] * XR Chest 1 Vw Portable (if patient condition/safety warrant portable) (10/13/2024 3:27 PM CDT) Anatomical Region Laterality Modality Body, Chest N/A Computed Radiogr aphy 10/13/2024 5:16 PM CDT Narrative 10/13/2024 5:18 PM CDT EXAM DESCRIPTION: XR CHEST 1 VIEW REASON FOR STUDY: chest pain Palpitations for the past week TECHNIQUE: 1 radiographic view(s) of the chest. COMPARISON: 07/21/2024 FINDINGS: LUNGS: No focal opacity, pleural effusion, or pneumothorax. HEART/MEDIASTINUM: Cardiac silhouette normal in size. Tortuosity of the thoracic aorta is similar to the previous exam. Soft tissue fullness in the right paratracheal region is probably due to tortuosity of the great vessels. LINES/TUBES: None. BONES: No acute osseous abnormality. IMPRESSION: No acute cardiopulmonary abnormality. THIS IS AN ELECTRONICALLY VERIFIED FINAL REPORT 10/13/2024 5:18 PM - Electronically signed by Ernesto Jacinto M.D. MINERVA: MINERVA Report ID: [id number] Reading Location: [id number] Procedure Note Kashif Jacinto MD - 10/13/2024 EXAM DESCRIPTION: XR CHEST 1 VIEW REASON FOR STUDY: chest pain Palpitations for the past week TECHNIQUE: 1 radiographic view(s) of the chest. COMPARISON: 07/21/2024 FINDINGS: LUNGS: No focal opacity, pleural effusion, or pneumothorax. HEART/MEDIASTINUM: Cardiac silhouette normal in size. Tortuosity of the thoracic aorta is similar to the previous exam. Soft tissue fullness inthe right paratracheal region is probably due to tortuosity of the greatvessels. LINES/TUBES: None. BONES: No acute osseous abnormality. IMPRESSION: No acute cardiopulmonary abnormality. THIS IS AN ELECTRONICALLY VERIFIED FINAL REPORT 10/13/2024 5:18 PM - Electronically signed by Ernesto Jacinto M.D. MINERVA: MINERVA Report ID: [id number] Reading Location: [place] [address] us Vish Valdez MD IMG XR PROCEDURES Final Result * Troponin T high-sensitivity series (baseline, 2hr, 4hr, 6hr) (10/13/2024 3:08 PM CDT) Pathologist [facility] Trop T hs 7 <=14 ng/L Comment: Interpretive Data For further hscTnT resources including the diagnostic algorithm and an aid in interpretation, copy and paste this link: https://nrl.testcatalog.org/show/hsTrop Current Interpretive Data last revised 2020. Testing performed by: [facility], [address] [place] [address]., [address] Blood 10/13/2024 3:08 PM CDT 10/13/2024 3:32 PM CDT us Vish Valdez MD LAB BLOOD ORDERABLES Final Resul t [facility] [address] [facility] [place] [address] * eGFR (10/13/2024 3:08 PM CDT) Pathologist [facility] eGFR 81 >=60 mL/min/1. 73 m2 Comment: Interpretive Data Reference Interval Normal >/= 90 mL/min/1.73m2 Mildly decreased* 60 - 89 mL/min/1.73m2 Mildly to moderately decreased 45 - 59 mL/min/1.73m2 Moderately to severely decreased 30 - 44 mL/min/1.73m2 Severely decreased 15 - 29 mL/min/1.73m2 Kidney Failure < 15 mL/min/1.73m2 *Relative to young adult level Estimated glomerular filtration rate is determined by the 2020 CKD-EPI equation recommended by the National Kidney Foundation (A Unifying Approach to GFR Estimation: Recommendations of the NKF-ASK Task Force on Reassessing the Inclusion of Race in Diagnosing Kidney Disease, JASN 2020). The CKD-EPI equation should not be used for patients with unstable renal function and has not been validated in children and those over 70. Current interpretive data was last reviewed 2021. Testing performed by: [address] [address] Blood 10/13/2024 3:08 PM CDT 10/13/2024 3:32 PM CDT us Vish Valdez MD LAB BLOOD ORDERABLES Final Resul t [facility] [address] [facility] Department [place] [address] * Differential, auto (10/13/2024 3:08 PM CDT) Neutrophil abs 3.82 1.50 - 6.50 K/cumm Comment:Testing performed by : [address] [address] Imm gran abs 0.03 0.00 - 0.10 K/cumm SILAS Comment:Testing performed by : [address] [address] Lymphocyte abs 1.44 0.80 - 3.30 K/cumm SILAS Comment:Testing performed by : [address] [address] Monocyte abs 0.57 0.20 - 0.80 K/cumm SILAS Comment:Testing performed by : [address] [address] Eosinophil abs 0.14 0.00 - 0.50 K/cumm [facility] Comment:Testing performed by : [address] [address] Basophil abs 0.06 0.00 - 0.10 K/cumm [facility] Comment:Testing performed by : [address] [address] Neutrophil pct 63.0 % [facility] Comment: Interpretive Data Percent cell count reference ranges are not reported, since discordance with absolute values may lead to misinterpretation of CBC data. Current Interpretive Data was last revised on 2017. Testing performed by: [address] [address] Imm gran pct 0.5 % [facility] Comment: Interpretive Data Percent cell count reference ranges are not reported, since discordance with absolute values may lead to misinterpretation of CBC data. Current Interpretive Data was last revised on 2017. Testing performed by: [address] [address] Lymphocyte pct 23.8 % [facility] Comment: Interpretive Data Percent cell count reference ranges are not reported, since discordance with absolute values may lead to misinterpretation of CBC data. Current Interpretive Data was last revised on 2017. Testing performed by: [address] [address] Monocyte pct 9.4 % [facility] Comment: Interpretive Data Percent cell count reference ranges are not reported, since discordance with absolute values may lead to misinterpretation of CBC data. Current Interpretive Data was last revised on 2017. Testing performed by: [address] [address] Eosinophil pct 2.3 % [facility] Comment: Interpretive Data Percent cell count reference ranges are not reported, since discordance with absolute values may lead to misinterpretation of CBC data. Current Interpretive Data was last revised on 2017. Testing performed by: [address] [address] Basophil pct 1.0 % [facility] Comment: Interpretive Data Percent cell count reference ranges are not reported, since discordance with absolute values may lead to misinterpretation of CBC data. Current Interpretive Data was last revised on 2017. Testing performed by: [address] [address] Blood 10/13/2024 3:08 PM CDT 10/13/2024 3:32 PM CDT us Vish Valdez MD LAB BLOOD ORDERABLES Final Resul t Performing Organization Address [facility] Co de Phone Number [address] [employer] [place] [address] * Thyroid Function [place] (10/13/2024 3:08 PM CDT) Pathologist [facility] TSH 1.55 0.30 - 4.20 mcIUnit/mL Comment:Testing performed by : [address] [address] Blood 10/13/2024 3:08 PM CDT 10/13/2024 3:32 PM CDT us Mouna SALAZAR LAB BLOOD ORDERABLES Final Resu lt Performing Organization Address [facility] de Phone Number [address] [address] * (ABNORMAL) CBC with auto differential (10/13/2024 3:08 PM CDT) WBC 6.06 3.80 - 9.90 K/cumm Comment:Testing performed by : [address] [address] Hgb 11.6(L) 11.9 - 15.5 g/dL SILAS MARI Comment:Testing performed by : [address] [address] Hct 36.3 35.6 - 45.5 % SILAS MARI Comment:Testing performed by : [address] [address] Plt 254 150 - 400 K/cumm SILAS MARI Comment:Testing performed by : [address] [address] MPV 10.8 9.1 - 12.3 fL SILAS MARI Comment:Testing performed by : [address] [address] RBC 3.90 3.90 - 5.20 M/cumm SILAS MARI Comment:Testing performed by : [address] [address] MCV 93.1 81.3 - 96.4 fL SILAS Comment:Testing performed by : [address] [address] MCH 29.7 27.1 - 33.3 pg SILAS Comment:Testing performed by : [address] [address] MCHC 32.0(L) 32.3 - 35.7 g/dL SILAS Comment:Testing performed by : [address] [address] RDW CV 13.5 11.1 - 14.9 % SILAS Comment:Testing performed by : [address] [address] RDW SD 45.5 35.7 - 48.1 fL SILAS Comment:Testing performed by : [address] [address] NRBC abs 0.00 0.00 - 0.01 K/cumm SILAS Comment:Testing performed by : [address] [address] Blood Venous blood specimen / Unknown 10/13/2024 3:08 PM CDT 10/13/2024 3:32 PM CDT us Vish Valdez MD LAB BLOOD ORDERABLES Final Resul t SILAS [address] [facility] Department of Laboratories [place], [place] [id number] * Comprehensive metabolic panel (10/13/2024 3:08 PM CDT) Sodium 140 135 - 145 mmol/L Comment:Testing performed by : [address] [address] Potassium, pl 4.1 3.3 - 4.9 mmol/L [facility] Comment:Testing performed by : [address], [place]., [address] Chloride 105 97 - 110 mmol/L [facility] Comment:Testing performed by : [address], [place]., [address] CO2 25 22 - 32 mmol/L SILAS Comment:Testing performed by : [address], [place]., [address] Anion gap 10 2 - 15 mmol/L [facility] Comment:Testing performed by : [address], [place]., [address] BUN 20 6 - 25 mg/dL [facility] Comment:Testing performed by : [address], [place]., [address] Creatinine 0.77 0.60 - 1.10 mg/dL [facility] Comment:Testing performed by : [address] [address] Glucose 96 70 - 199 mg/dL [facility] Comment: Interpretive Data Fasting glucose >/= 126 mg/dl is diagnostic for diabetes. Fasting is defined as no caloric intake for at least 8 hours. Fasting glucose between 100 mg/dl to 125 mg/dl is diagnostic of prediabetes. In a patient with classic symptoms of hyperglycemia or hyperglycemic crisis, a random glucose >/= 200 mg/dl is diagnostic for diabetes. In the absence of unequivocal hyperglycemia, results should be confirmed by repeat testing. The classification and Diagnosis of Diabetes Diabetes Care 202; 46: S19-S40. Current interpretive data was last revised 2022. Testing performed by: [address] [address] Calcium 9.8 8.5 - 10.3 mg/dL SILAS Comment:Testing performed by : [address] [address] Bilirubin, total 0.2 0.1 - 1.2 mg/dL [facility] Comment:Testing performed by : [address] [address] Protein, pl 7.0 6.5 - 8.5 g/dL SILAS Comment:Testing performed by : [facility], [address] [place] [address]., [address] Albumin 4.3 3.5 - 5.0 g/dL SILAS Comment:Testing performed by : [address] [address] Alk phos 82 40 - 130 Units/L SILAS Comment:Testing performed by : [address] [address] ALT 31 7 - 45 Units/L SILAS Comment:Testing performed by : [address] [address] AST 34 10 - 45 Units/L SILAS Comment:Testing performed by : [address] [address] Blood 10/13/2024 3:08 PM CDT 10/13/2024 3:32 PM CDT us Vish Valdez MD LAB BLOOD ORDERABLES Final Resul t SILAS [address] [facility] [place] [address] * ECG 12 lead (10/13/2024 3:03 PM CDT) Ventricular Rate EKG/Min 75 BPM [facility] Atrial Rate 75 BPM [facility] ME-Interval (MSEC) 192 ms [facility] QRS-Interval (MSEC) 98 ms [facility] QT-Interval (MSEC) 396 ms [facility] QTc 442 ms [facility] P Tolley 70 degrees [facility] R Tolley -67 degrees [facility] T Tolley 32 degrees [facility] Diagnosis Sinus rhythm with frequent Premature ventricular complexes Possible Left atrial enlargement Left anterior fascicular block Abnormal ECG When compared with ECG of 12-JUN-2023 13:01, No significant change Confirmed by DONNY BANG M.D. ([id number]) on 10/15/2024 12:52:54 AM [facility] 10/13/2024 3:03 PM CDT 10/15/2024 12:52 AM CDT us Vish Valdez MD ECG ORDERABLES Final Result [facility] * COLONOSCOPY (11/27/2022 8:34 AM CDT) Anatomical Region Laterality Modality Other Narrative Procedure Note Ed Guzman MD - 11/27/2022 8:34 AM CDT [facility] GI ENDOSCOPY Patient Name: Tigre Parry Procedure Date: 11/27/2022 8:34 AM Date of : 1950 Admit Type: Outpatient Age: 72 Gender: Female Attending MD: Ed Guzman M.D. Room: [facility] ENDOSCOPY ROOM 06 Note Status: Finalized Procedure: Colonoscopy Indications: Iron deficiency anemia Referring MD: Aracelis See M.D. Providers: Ed Guzman M.D. Medicines: Monitored Anesthesia Care Complications: No immediate complications. Estimated Blood Loss: Estimated blood loss: none. Procedure: The benefits, risks and alternatives of theprocedure and sedation were discussed and informed consentwas obtained. All questions were answered. Please referto the signed informed consent document in the medical record. The scope was passed under direct vision.The [id number] colonoscope was introduced through theanus and advanced to the cecum, identified byappendiceal orifice and ileocecal valve. The colonoscopy was performed without difficulty. The patient tolerated the procedure well. The quality of the bowel preparation was good. Scope withdrawal time was 10 minutes. Prep was administered in a split dose. Findings: The perianal and digital rectal examinations were normal. Multiple large patchy angioectasias without bleeding were found inthe cecum. All 5 AVMs in the cecum were nonbleeding and range from 8 mmto 1.5 cm. They were all treated with APC. No bleeding was seen after treatment of the AVMs. Two polyps were found in the sigmoid colon. The polyps werediminutive in size. These polyps were removed with a cold biopsy forceps.Resection and retrieval were complete. A diminutive polyp was found in the rectum. The polyp was removedwith a cold biopsy forceps. Resection and retrieval were complete. Non-bleeding internal hemorrhoids were found during retroflexion. The hemorrhoids were small. The exam was otherwise without abnormality. Impression: - Multiple non-bleeding colonic angioectasias. - Two diminutive polyps in the sigmoid colon,removed with a cold biopsy forceps. Resected andretrieved. - One diminutive polyp in the rectum, removed witha cold biopsy forceps. Resected and retrieved. - Non-bleeding internal hemorrhoids. - The examination was otherwise normal. Recommendation: - Patient has a contact number available for emergencies. The signs and symptoms of potential delayed complications were discussed with thepatient. Return to normal activities tomorrow. Written discharge instructions were provided to thepatient. - High fiber diet. - Continue present medications. - Await pathology results. - Repeat colonoscopy in 5 years for surveillance. - Return to GI clinic as previously scheduled. Ed Guzman M.D. Ed Guzman M.D. 11/27/2022 9:16:54 AM . Number of Addenda: 0 Note Initiated On: 11/27/2022 8:34 AM Recognized by the [employer] for promoting quality in endoscopy Ed Guzman MD ENDOSCOPY PROCEDURES Final Resul t from Last 3 Months or Most Recently Relevant to Health Maintenance Insurance [employer] [facility] MEDICARE ADVANTAGE [facility] MEDICARE ADVANTAGE [employer] [facility] MEDICARE ADVANTAGE Advance Directives For more information, please contact: [phone] * Full Code (Latest Code Status on File) Date Activated Date Inactivated Comments 10/13/2024 10:41 PM 10/15/2024 8:29 PM * Full Code Date Activated Date Inactivated Comments 06/12/2023 7:10 PM 06/15/2023 6:42 PM * Full Code Date Activated Date Inactivated Comments 05/25/2018 10:26 PM 05/29/2018 9:52 PM Care Teams Postdoctoral Scholar Relationship Specialty Start Date End Date Shandra Perdomo PA PCP - General Physician Quarter Inspector 03/14/23"
--- OUTSIDE RECORDS SUMMARY | 2024-11-20 13:04 | XMS_ITS ---
Author Organization [facility] Address [address] [place] [address] Phone Care Team Providers Care Knot Borer Name Role Phone LeanneShandra welch A [facility] Primary Care Provider Archie Arredondo MD Unavailable [phone] Aracelis See MD Unavailable Santiago Hope MD Unavailable [phone] Active Problems Problem Noted Date Diagnosed Date [...] Basal cell carcinoma (BCC) of face 11/08/2016 Current Treatment and Therapy Plans No current plan information found. Other Current Plans [facility]: Support Nat* Plan Start Date:09/14/2024 Plan Provider:Archie Arredondo MD Linked Problems Iron deficiency anemia, unsp ecified iron deficiency anemia type Treatment Medications No medications scheduled. Past Treatment and Therapy Plans
--- OUTSIDE RECORDS SUMMARY | 2024-11-20 13:04 | XMS_ITS ---
Author Organization [facility] Address [address] [place] [address] Care Team Providers Care Track Welder Name Role Phone Shandra Perdomo Primary Care Provider + Active Problems Problem Noted Date Diagnosed Date Cystitis 10/15/2024 Palpitations 10/13/2024 Shortness of breath 08/04/2023 Pneumonia of right upper lobe due to infectious organism 06/12/2023 URBANO (acute kidney injury) 06/12/2023 Screening for colon cancer 05/10/2023 Assessment & Plan (05/10/2023 11:34 AM FARM TECHNICIAN): Images from the original note were not included. Dr. Guzman performed colonoscopy October 2022 next colonoscopy screening due in October of 2027 attached is October 2022 is impression and recommendations completed by Dr. 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 [...] 05/26/2018 Assessment & Plan (05/27/2018 9:18 AM FARM TECHNICIAN): Yesterday, pt c/o mild dysphagia when swallowing water. Tolerated clear liquids yesterday without coughing. Also, thyroid mass found on CT which could be a contributing factor. - Currently no swallow study indicated - Consider speech eval/swallow study if dysphagia persists or worsens w/solid food intake today Assessment & Plan (05/26/2018 9:45 AM FARM TECHNICIAN): Pt c/o mild dysphagia when swallowing water. Denies coughing or a choking feeling. - advance diet to clears - consider swallow study if persists or worsens Thyroid mass of unclear etiology 05/26/2018 Assessment & Plan (11/12/2022 9:05 AM CDT): tsh within normal limits Given # to schedule ultrasound Assessment & Plan (05/27/2018 9:12 AM FARM TECHNICIAN): Found incidentally on CT scan. - Thyroid ultrasound Assessment & Plan (05/26/2018 4:54 PM FARM TECHNICIAN): Found incidentally on CT scan. - Thyroid ultrasound Thyroid mass 05/26/2018 Overview (05/02/2023): Last Assessment & Plan: Found incidentally on CT scan. - Thyroid ultrasound Last Assessment & Plan: Found incidentally on CT scan. 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 - Keep HR <70 and SBP <120 - Advance diet to Cardiac diet - q1 hr neurovascular checks - Tylenol PRN - Morphine 2 mg IV PRN Assessment & Plan (05/26/2018 3:28 PM FARM TECHNICIAN): Type B dissection. Currently denies pain. - [...] today. Assessment & Plan (05/25/2018 10:46 PM FARM TECHNICIAN): On OSH CT. Chest pain now resolved. -start coreg 3.125 BID while using esmolol for HR 55-70, SBP <120 -NPO -T&S completed -q1h NV checks Iron deficiency anemia 05/25/2018 Assessment & Plan (07/30/2024 10:34 AM FARM TECHNICIAN): Patient has a history of iron-deficiency anemia, hemoglobin was 7.7 from labs September 2022, follows with Hematology and per patient her hemoglobin has increased to 11. Iron levels in the past have also been low, and she was receiving iron infusions with her safety deposit clerk, currently on oral iron supplements. Patient denies [...] she was receiving iron infusions with her safety deposit clerk, currently on oral iron supplements. Patient denies [...] 2027 Assessment & Plan (05/10/2023 11:25 AM FARM TECHNICIAN): Images from the original note were not included. Anemia has improved significantly Patient had a capsule endoscopy done since her last visit. This was inconclusive. Most recent labs from 04/29/23. Patient is seen by wildland fire operations specialist. Hemoglobin has increased significantly since September. Assessment & Plan (01/06/2023 9:36 AM CDT): Patient has a history of iron-deficiency anemia, hemoglobin was 7.7 from labs September 2022, follows with Hematology and per patient her hemoglobin has increased to 11. Iron levels in the past have also been low, and she was receiving iron infusions with her safety deposit clerk, currently on oral iron supplements. Patient denies [...] from labs September 2022. States saw her safety deposit clerk last week in her hemoglobin has increased to 10. Iron levels in the past have also been low, and she was receiving iron infusions with her safety deposit clerk. Patient denies any overt GI bleeding. Patient's [...] GI Assessment & Plan (05/27/2018 11:27 AM FARM TECHNICIAN): Baseline anemia. Iron studies sent today - Iron dextran IV, 200 mg x 5 day course to replete calculated iron deficit of ~ 1 gram - Will likely need a GI consult and scope outpatient Assessment & Plan (05/26/2018 9:44 AM FARM TECHNICIAN): Baseline anemia. - Consider adding iron supplementation after tolerating full diet Assessment & Plan (05/25/2018 10:47 PM FARM TECHNICIAN): Will consider iron supplementation in future. Trend [...] of other parts of f shady 11/08/2016 Current Treatment and Therapy Plans No current plan information found. Past Treatment and Therapy Plans No past plan information found. Lifetime Dose Tracking * Chemical Lifetime Dose Automatic Entry Manual Entr y DLP 14,368 mGycm 14,368 mGycm 0 mGycm
--- OUTSIDE RECORDS SUMMARY | 2024-11-20 13:04 | XMS_ITS | Encounter Summary ---
Author Organization [facility] Address [address] [place] [address] Phone Care Team Providers Care Business Area Director Name Role Phone Unknown, Notinfile Primary Care Provider Unavail able Shree Dunn MD Primary Care Provider [phone] Shree Dunn MD Unavailable [phone] Kashif Paz MD Unavailable Eric Abrams MD Unavailable Misty Patel MD Unavailable [phone] Misty Patel MD Primary Care Provider + [phone] Aracelis See MD Primary Care Pro vider Shandra Perdomo Primary Care Provider + Aracelis See MD Primary Care Pro vider Osiris Fitzpatrick MD Primary Care Provider [phone] Aracelis See MD Primary Care Pro vider Shandra Perdomo Primary Care Provider + Encounter Details Date Type Department Care Team (Late st Contact Info) Description 05/26/2018 Telephone [facility] Cardiology [address] [facility] [address]th [place] [address] [place] [address] Bart Barnes Social History Tobacco Use Types Packs/Day Years Used Date Smoking Tobacco: Every Day Comments Unknown Sex and Gender Information Value Date Recorded Sex Assigned at Not on file Legal Sex Female 1:58 PM CDT Gender Identity Female 02/06/2020 4:21 PM CDT Sexual Orientation Straight 02/06/2020 4: 21 PM CDT documented as of this encounter Plan of Treatment Not on file documented as of this encounter Visit Diagnoses Not on filedocumented in this encounter Additional Health Concerns Infection Onset Date Last Indicated Resolved Time COVID: Suspected 06/12/2023 06/12/2023 06/12/2023 3:07 PM DIRECTOR WATER AND WASTE SERVICES documented as of this encounter Care Teams Business Area Director Relationship Specialty Start Date End Date Unknown, Notinfile PCP - General 05/25/18 05/31/18 Shree Dunn MD PCP - General Family Medicine 06/01/18 03/17/19 Misty Patel MD [address] [place] [address] PCP - General Family Medicine 05/03/19 08/05/22 Aracelis See MD [address] [place] [address] PCP - General Family Medicine 08/06/22 12/17/22 Shandra Perdomo PA [address] [place] [address] PCP - General Physician Outside Food Server 12/18/22 01/23/23 Aracelis See MD [address] [place] [id number] PCP - General Family Medicine 01/24/23 02/10/23 Osiris Fitzpatrick MD [address] [facility] [address] PCP - General Family Practice 02/11/23 02/12/23 [place] [address] [place] [id number] PCP - General Family Medicine 02/13/23 03/13/23 Shandra Perdomo PA [address] [place] [address] PCP - General Physician Outside Food Server 03/14/23 Shree Dunn MD 05/25/18 03/17/19 Kashif Paz MD [address] [place] [address] Referring Physician Vascular Surgery 05/29/18 03/17/19 Eric Abrams MD [address] [place] [address] Referring Physician Cardiology 05/29/18 03/17/19 Misty Patel MD [address] [place] [address] Referring Physician Family Medicine 03/18/19 01/23/23 documented as of this encounter
--- OUTSIDE RECORDS SUMMARY | 2024-11-20 13:04 | XMS_ITS | Encounter Summary ---
Author Organization [facility] Address [address] [place] [address] Phone Care Team Providers Care Firing Pin Gauger Name Role Phone Misty Patel MD Unavailable [phone] Misty Patel MD Primary Care Provider + [phone] Aracelis See MD Primary Care Pro vider Shandra Perdomo Primary Care Provider + Aracelis See MD Primary Care Pro vider Osiris Fitzpatrick MD Primary Care Provider [phone] Aracelis See MD Primary Care Pro vider Shandra Perdomo Primary Care Provider + Encounter Details Date Type Department Care Team (Late st Contact Info) Description 08/29/[address] [facility] Cardiology [address] [facility] 8th [place] [address] [place] [address] Eric Abrams MD [address] [facility] [address] [place] [address] Social History Tobacco Use Types Packs/Day Years Used Date Smoking Tobacco: Former Cigarettes 1 50 Smokeless Tobacco: Never Alcohol Use Standard Drinks/Week Comments No 0 (1 standard drink = 0.6 oz pur e alcohol) Comments Unknown Sex and Gender Information Value [...] COVID: Suspected 06/12/2023 06/12/2023 06/12/2023 3:07 PM RESEARCH TEST ENGINE EVALUATOR documented as of this encounter Care Teams Firing Pin Gauger Relationship Specialty Start Date End Date Misty Patel MD PCP - General Family Medicine 05/03/19 08/05/22 Aracelis See MD PCP - General Family Medicine 08/06/22 12/17/22 Shandra Perdomo PA PCP - General Physician Supervisor Finish End 12/18/22 01/23/23 Aracelis See MD [address] [place] [id number] PCP - General Family Medicine 01/24/23 02/10/23 Osiris Fitzpatrick MD [address] [facility] [address] [place], [place] [address] PCP - General Family Practice 02/11/23 02/12/23 Aracelis See MD [address] [place] [address] [address] [place], [place] [id number] PCP - General Family Medicine 02/13/23 03/13/23 Shandra Perdomo PA PCP - General Physician Supervisor Finish End 03/14/23 Misty Patel MD Referring Physician Family Medicine 03/18/19 01/23/23 documented as of this encounter
--- OUTSIDE RECORDS SUMMARY | 2024-11-20 13:04 | XMS_ITS | Clinical Summary ---
Author Organization [facility] Address [address] [place] [address] Care Team Providers Care Word Processor Technician Name Role Phone Shandra Perdomo Primary Care Provider + Allergies Active Allergy Reactions Criticality Noted Date [...] 05/10/2023 Assessment & Plan (05/10/2023 11:34 AM CHIEF PSYCHOLOGIST): Images from the original note were not included. Dr. Guzman performed colonoscopy October 2022 next colonoscopy screening due in October of 2027 attached is October 2022 is impression and recommendations completed by Dr. Guzman Helicobacter pylori infection 01/06/2023 Assessment & Plan (07/30/2024 11:00 AM CHIEF PSYCHOLOGIST): EGD October 2022 with gastritis, pathology positive [...] 11/19/2022 Assessment & Plan (07/30/2024 10:34 AM CHIEF PSYCHOLOGIST): CT scan August 2022 with thoracoabdominal dissection [...] EUS Assessment & Plan (05/10/2023 11:30 AM CHIEF PSYCHOLOGIST): CT scan August 2022 with thoracoabdominal dissection [...] dissection Assessment & Plan (08/06/2022 11:10 AM CHIEF PSYCHOLOGIST): Uncontrolled Previously had side effects to ssri [...] losartan Assessment & Plan (08/06/2022 10:55 AM CHIEF PSYCHOLOGIST): Blood pressure at goal Continue coreg 6.25mg twice a day, 12.5mg hydrochlorothiazide, 50mg losartan Assessment & Plan (05/27/2018 11:29 AM CHIEF PSYCHOLOGIST): In the setting of Type B dissection. [...] 05/26/2018 Assessment & Plan (05/27/2018 9:18 AM CHIEF PSYCHOLOGIST): Yesterday, pt c/o mild dysphagia when swallowing water. Tolerated clear liquids yesterday without coughing. Also, thyroid mass found on CT which could be a contributing factor. - Currently no swallow study indicated - Consider speech eval/swallow study if dysphagia persists or worsens w/solid food intake today Assessment & Plan (05/26/2018 9:45 AM CHIEF PSYCHOLOGIST): Pt c/o mild dysphagia when swallowing water. Denies coughing or a choking feeling. - advance diet to clears - consider swallow study if persists or worsens Thyroid mass of unclear etiology 05/26/2018 Assessment & Plan (11/12/2022 9:05 AM CDT): tsh within normal limits Given # to schedule ultrasound Assessment & Plan (05/27/2018 9:12 AM CHIEF PSYCHOLOGIST): Found incidentally on CT scan. - Thyroid ultrasound Assessment & Plan (05/26/2018 4:54 PM CHIEF PSYCHOLOGIST): Found incidentally on CT scan. - Thyroid ultrasound Thyroid mass 05/26/2018 Overview (05/02/2023): Last Assessment & Plan: Found incidentally on CT scan. - Thyroid ultrasound Last Assessment & Plan: Found incidentally on CT scan. - Thyroid ultrasound Aortic dissection 05/25/2018 Assessment & Plan (11/12/2022 9:05 AM CDT): Following with cardiology Annual CT scan Assessment & Plan (08/06/2022 10:46 AM CHIEF PSYCHOLOGIST): Following with cardiology Annual CT scan Assessment & Plan (05/27/2018 9:12 AM CHIEF PSYCHOLOGIST): Type B dissection. Continues to deny pain. - Keep HR <70 and SBP <120 - Advance diet to Cardiac diet - q1 hr neurovascular checks - Tylenol PRN - Morphine 2 mg IV PRN Assessment & Plan (05/26/2018 3:28 PM CHIEF PSYCHOLOGIST): Type B dissection. Currently denies pain. - [...] today. Assessment & Plan (05/25/2018 10:46 PM CHIEF PSYCHOLOGIST): On OSH CT. Chest pain now resolved. -start coreg 3.125 BID while using esmolol for HR 55-70, SBP <120 -NPO -T&S completed -q1h NV checks Iron deficiency anemia 05/25/2018 Assessment & Plan (07/30/2024 10:34 AM CHIEF PSYCHOLOGIST): Patient has a history of iron-deficiency anemia, hemoglobin was 7.7 from labs September 2022, follows with Hematology and per patient her hemoglobin has increased to 11. Iron levels in the past have also been low, and she was receiving iron infusions with her vertical mill operator, currently on oral iron supplements. Patient denies [...] she was receiving iron infusions with her vertical mill operator, currently on oral iron supplements. Patient denies [...] 2027 Assessment & Plan (05/10/2023 11:25 AM CHIEF PSYCHOLOGIST): Images from the original note were not included. Anemia has improved significantly Patient had a capsule endoscopy done since her last visit. This was inconclusive. Most recent labs from 04/29/23. Patient is seen by relocation specialist. Hemoglobin has increased significantly since September. Assessment & Plan (01/06/2023 9:36 AM CDT): Patient has a history of iron-deficiency anemia, hemoglobin was 7.7 from labs September 2022, follows with Hematology and per patient her hemoglobin has increased to 11. Iron levels in the past have also been low, and she was receiving iron infusions with her vertical mill operator, currently on oral iron supplements. Patient denies [...] from labs September 2022. States saw her vertical mill operator last week in her hemoglobin has increased to 10. Iron levels in the past have also been low, and she was receiving iron infusions with her vertical mill operator. Patient denies any overt GI bleeding. Patient's [...] GI Assessment & Plan (05/27/2018 11:27 AM CHIEF PSYCHOLOGIST): Baseline anemia. Iron studies sent today - Iron dextran IV, 200 mg x 5 day course to replete calculated iron deficit of ~ 1 gram - Will likely need a GI consult and scope outpatient Assessment & Plan (05/26/2018 9:44 AM CHIEF PSYCHOLOGIST): Baseline anemia. - Consider adding iron supplementation after tolerating full diet Assessment & Plan (05/25/2018 10:47 PM CHIEF PSYCHOLOGIST): Will consider iron supplementation in future. Trend [...] of other parts of f [place] 11/08/2016 Encounters Date Type Department Care Team Description 11/12/2024 Telephone [facility] Cardiology [address] [facility] Advanced Medicine 8th [place] [address] [place] [address] Khushi Menezes HR 11/08/2024 Orders Only [facility] Scanning, Provider 10/29/2024 Telephone [facility] Surgery [address] [facility] Advanced Medicine 8th [place] [address] [place] [address] Zaheer Jarvis BennettAnabelle, RMA 10/28/2024 Telephone [facility] Surgery [address] [facility] Floor 1 [place] [address] Fredy Dumont MD 10/26/2024 1:30 PM CDT Office Visit [facility] Cardiology [address] [place] [address] 8th [place] [address] [place] [address] Eric Abrams MD Primary hypertension (Primary Dx); Hypercholesterolemia ; Dissection of aorta, unspecified portion of aorta (HCC) 10/24/2024 Orders Only [facility] Scanning, Provider 10/18/2024 12:45 PM CDT Ancillary Procedure [facility] Cardiology [address] [place] [address] [place] [address] [place] [address] Palpitations 10/14/2024 Telephone [facility] Cardiology [address] [place] [address] [place] [address] [place] [address] Eric Abrams MD 10/14/2024 Telephone [facility] Cardiology [address] [place] [address] 8th [place] [address] [place] [address] Eric Abrams MD Inpt/Medication question 10/13/2024 5:33 PM CDT - 10/15/2024 4:08 PM CDT Hospital Encounter [place] [address] [address] [place] [address] Boone Lopes MD [place], MD [place] Prieto Bushra, MD Palpitations (Primary Dx); Nonsustained ventricular tachycardia (HCC); Acute cystitis without hematuria; Weakness; History of aortic dissection Discharge Disposition: Discharge to home or self care 09/13/2024 Telephone [facility] Cardiology [address] [place] [address] 8th [place] [address] [place] [address] Eric Abrams MD 09/07/2024 Telephone [facility] Cardiology [address] [place] [address] 8th [place] [address] [place] [address] Eric Abrams MD from Last 3 Months Immunizations Immunization Administration Dates Next Due Influenza, Unspecified 04/08/2022(Deferred: Zayra ent Refused) Surgical History Surgery Date Site/Laterality Comments TUBAL LIGATION 06/30/1980 - 06/29/1981 CATARACT EXTRACTION 07/31/2022 - 08/27/2022 Right COLONOSCOPY 06/30/2011 - 06/29/2012 UPPER GASTROINTESTINAL ENDOSCOPY 2011 BREAST SURGERY Right cyst removal Medical History Medical History Date Comments Emphysema of lung (HCC) 2018- mi ld no treatment Iron deficiency anemia H/O aortic dissection Type B Allergic rhinitis Anxiety Hypertension Tinnitus Sleep difficulties Glaucoma Aortic dissection (HCC) has not been repaired yet Family History Medical History Relation Name Comments Cancer Brother Cardiomyopathy Brother Lung cancer Daughter 1 Lymphoma Daughter 2 Cardiomyopathy Father Heart disease Father Stroke Mother Cancer Mother's Sister Relation Name Status Comments Brother Daughter 1 Daughter 2 Alive Father Mother Mother's Sister Social History Tobacco Use Types Packs/Day Years Used Date Smoking Tobacco: Former Cigarettes 1 50 1 971 - 2020 Smokeless Tobacco: Never Tobacco Cessation:Counseling Given: Not Answered Alcohol Use Standard Drinks/Week Comments No 0 (1 standard drink = 0.6 oz pur e alcohol) [facility] Utilities Answer Date Recorded In the past 12 months has [employer]) electric, gas, oil, or water company threatened [...] often do you attend chur ch or islam services? 1 to 4 times per year 10/14/2024 Do you belong to any clubs o r organizations such as roman catholic groups, unions, fraternal or athletic groups, or [...] place to sleep or slept in a mcfp (including now)? No 06/13/2023 Housing Stability Vital Sign Answer Edin e Recorded In the last 12 months, was t here a time when you were not able to pay the mortgage or rent on time? No 10/14/2024 In the past 12 months, how m any times have you moved where you were living? 0 10/14/2024 At any time in the past 12 m [facility], were you homeless or living in a mcfp (including now)? No 10/14/2024 Personal Safety Answer [...] Orientation Straight 02/06/2020 4: 21 PM CDT Obstetrics History Last Filed Vital Signs Vital Sign Reading [...] 10/26/2024 1:42 PM CDT Plan of Treatment Health Maintenance Due Date Last Done Comments Breast Cancer Screening-Mammogram 1950 Hepatitis C Screening 1950 Osteoporosis Screening-Bone Density Scan 1950 Hepatitis B Screening 1968 Pneumococcal vaccine 65+ (1 of 2 - PCV) 1969 Lung Cancer Screening 2000 Zoster Vaccine (1 of 2) 2000 Well Visit 65+ 2015 Depression Screening 08/06/2023 08/06/2022 Influenza Vaccine (Season Ended) 2025 Fall Risk Assessment 10/15/2025 10/15/2024, 11/13/19 Colon Cancer Screening-Colonoscopy 11/28/20272022 DTaP/Tdap/Td Vaccine (2 - Td or Tdap) 02/13/2033 Colon Cancer Screening-CT Colonography Discontinued Colon Cancer Screening-DNA Stool Discontinued 11/28/19 Colon Cancer Screening-FIT Discontinued 11/27/2022 Colon Cancer Screening-Sigmoidoscopy Discontinued 10/30 Procedures Procedure Name Priority Date/Time Associated Diagnosis [...] 3:08 PM CDT DIFFERENTIAL AUTO STAT 10/13/2024 3: 08 PM CDT TROPONIN T HIGH-SENSITIVITY SERIES (BASELINE, [...] followed by vascular surgeon Dr. Dumont. Primary veterinary laboratory diagnostician is Dr. Abrams at [facility] in [place]. Her most recent CTA of chest/abdomen/pelvis found [...] is unchanged. PLEURA: No effusion. No pneumothorax. MEDIASTINUM/ORDRIGO: Nodular thyroid is seen extending to the [...] Bruno Marrero M.D. AG: XIMENA Report ID: [id number] Reading Location: [id number] Procedure Note Bruno Marrero MD - 10/14/2024 EXAM DESCRIPTION: CTA CHEST ABDOMEN PELVIS REASON FOR STUDY: Type B aortic dissection No prior history of coronary artery disease. Patient has type B aortic dissection since 2018. This was discovered with imaging at the time thatshe had back pain. She is followed by vascular surgeon Dr. Dumont. Primary veterinary laboratory diagnostician is Dr. Abrams at [facility] in [place].Her most recent CTA of chest/abdomen/pelvis found a [...] Bruno Marrero M.D. AG: AG Report ID: [id number] Reading Location: [id number] us Patience Hung MD IMG CT PROCEDURES Final R esult * TRANSTHORACIC ECHO (TTE) COMPLETE W DOPPLER/CF WO CONTRAST (10/14/2024 2:45 PM CDT) Anatomical Region Laterality Modality Ultrasound 10/14/2024 2:17 PM CDT Narrative 10/15/2024 9:58 AM CDT Transthoracic Echocardiographic Report Patient Name: TIGRE PARRY J : 1950 (74y 4m) Gender: F Study Date: 10/14/2024 02:17:34 PM Ht(Inch): 65 Wt(Lb): 178 BSA: 1.92 Office Admin: Leah Welsh RDCS Location: [id number] Order Provider: LOCO RUSSELL Heart Rate: 66 BMI: 29.62 BP: 145 / 89 Ref Provider: LOCO RUSSELL PROCEDURES: Echocardiographic Report: ([id number]) Transthoracic complete echo, 2D, spectral and tissue [...] PM Ht(Inch): 65 Wt(Lb): 178 BSA: 1.92 Office Admin: Leah Welsh RDCS Location: [place] [address] Order Provider:LOCO RUSSELL Heart Rate: 66 BMI: 29.62 BP: 145 / 89 Ref Provider: LOCO RUSSELL PROCEDURES: Echocardiographic Report: ([id number]) Transthoracic complete echo, 2D,spectral and tissue Doppler, [...] Patience Hung MD 10/15/2024 9:57:34 AM CDT Loco Russell MD CV ECHO PROCEDURES F [...] was last reviewed 2021. Testing performed by: [address] [address] Blood 10/14/2024 5:13 AM CDT 10/14/2024 5:25 AM CDT Loco Russell MD LAB BLOOD ORDERABLES Final Result [facility] [address] [facility] Department [place] [address] * Differential, auto (10/14/2024 5:13 AM CDT) Neutrophil abs 2.90 1.50 - 6.50 K/cumm Comment:Testing performed by : [address] [address] Imm gran abs 0.02 0.00 - 0.10 K/cumm [facility] Comment:Testing performed by : [address] [address] Lymphocyte abs 1.03 0.80 - 3.30 K/cumm [facility] Comment:Testing performed by : [address] [address] Monocyte abs 0.56 0.20 - 0.80 K/cumm [facility] Comment:Testing performed by : [address], [place]., [address] Eosinophil abs 0.13 0.00 - 0.50 K/cumm [facility] Comment:Testing performed by : [address] [address] Basophil abs 0.03 0.00 - 0.10 K/cumm [facility] Comment:Testing performed by : [address] [address] Neutrophil pct 62.1 % [facility] Comment: Interpretive Data Percent cell count reference ranges are not reported, since discordance with absolute values may lead to misinterpretation of CBC data. Current Interpretive Data was last revised on 2017. Testing performed by: [address] [address] Imm gran pct 0.4 % [facility] Comment: Interpretive Data Percent cell count reference ranges are not reported, since discordance with absolute values may lead to misinterpretation of CBC data. Current Interpretive Data was last revised on 2017. Testing performed by: [address] [address] Lymphocyte pct 22.1 % [facility] Comment: Interpretive Data Percent cell count reference ranges are not reported, since discordance with absolute values may lead to misinterpretation of CBC data. Current Interpretive Data was last revised on 2017. Testing performed by: [address] [address] Monocyte pct 12.0 % [facility] Comment: Interpretive Data Percent cell count reference ranges are not reported, since discordance with absolute values may lead to misinterpretation of CBC data. Current Interpretive Data was last revised on 2017. Testing performed by: [address] [address] Eosinophil pct 2.8 % [facility] Comment: Interpretive Data Percent cell count reference ranges are not reported, since discordance with absolute values may lead to misinterpretation of CBC data. Current Interpretive Data was last revised on 2017. Testing performed by: [address] [address] Basophil pct 0.6 % [facility] Comment: Interpretive Data Percent cell count reference ranges are not reported, since discordance with absolute values may lead to misinterpretation of CBC data. Current Interpretive Data was last revised on 2017. Testing performed by: [address] [address] Blood 10/14/2024 5:13 AM CDT 10/14/2024 5:25 AM CDT Loco Russell MD LAB BLOOD ORDERABLES Final Result [facility] Department [place] [address] * (ABNORMAL) CBC with auto differential (10/14/2024 5:13 AM CDT) WBC 4.67 3.80 - 9.90 K/cumm Comment:Testing performed by : [address] [address] Hgb 10.9(L) 11.9 - 15.5 g/dL [facility] Comment:Testing performed by : [address] [address] Hct 34.2(L) 35.6 - 45.5 % [facility] Comment:Testing performed by : [address] [address] Plt 193 150 - 400 K/cumm [facility] Comment:Testing performed by : [address] [address] MPV 10.5 9.1 - 12.3 fL [facility] Comment:Testing performed by : [address] [address] RBC 3.64(L) 3.90 - 5.20 M/cumm [facility] Comment:Testing performed by : [address] [address] MCV 94.0 81.3 - 96.4 fL [facility] Comment:Testing performed by : [address] [address] MCH 29.9 27.1 - 33.3 pg [facility] Comment:Testing performed by : [address] [address] MCHC 31.9(L) 32.3 - 35.7 g/dL [facility] Comment:Testing performed by : [address] [address] RDW CV 13.5 11.1 - 14.9 % [facility] Comment:Testing performed by : [address], [address] RDW SD 46.2 35.7 - 48.1 fL [facility] Comment:Testing performed by : [address] [address] NRBC abs 0.00 0.00 - 0.01 K/cumm [facility] Comment:Testing performed by : [address] [address] Blood 10/14/2024 5:13 AM CDT 10/14/2024 5:25 AM CDT Loco Russell MD LAB BLOOD ORDERABLES Final Result [facility] [address] [facility] Department [place] [address] * Magnesium (10/14/2024 5:13 AM CDT) [facility] Magnesium 2.2 1.4 - 2.5 mg/dL Comment:Testing performed by : [address], [address] Blood 10/14/2024 5:13 AM CDT 10/14/2024 5:25 AM CDT us Shruthi Driver MD LAB BLOOD ORDERABLES Final Res ult [facility] [address] [facility] Department [place] [address] * (ABNORMAL) Comprehensive metabolic panel (10/14/2024 5:13 AM CDT) Sodium 141 135 - 145 mmol/L Comment:Testing performed by : [address] [address] Potassium, pl 4.0 3.3 - 4.9 mmol/L [facility] Comment:Testing performed by : [address] [address] Chloride 107 97 - 110 mmol/L [facility] Comment:Testing performed by : [address] [address] CO2 26 22 - 32 mmol/L [facility] Comment:Testing performed by : [address] [address] Anion gap 8 2 - 15 mmol/L [facility] Comment:Testing performed by : [address] [address] BUN 20 6 - 25 mg/dL [facility] Comment:Testing performed by : [address] [address] Creatinine 0.81 0.60 - 1.10 mg/dL [facility] Comment:Testing performed by : [address] [address] Glucose 100 70 - 199 mg/dL [facility] [...] was last revised 2022. Testing performed by: [address] [address] Calcium 9.4 8.5 - 10.3 mg/dL [facility] Comment:Testing performed by : [address] [address] Bilirubin, total 0.2 0.1 - 1.2 mg/dL [facility] Comment:Testing performed by : [address] [address] Protein, pl 6.3(L) 6.5 - 8.5 g/dL [facility] Comment:Testing performed by : [address] [address] Albumin 3.9 3.5 - 5.0 g/dL [facility] Comment:Testing performed by : [address] [address] Alk phos 73 40 - 130 Units/L [facility] Comment:Testing performed by : [address] [address] ALT 27 7 - 45 Units/L [facility] Comment:Testing performed by : [address] [address] AST 28 10 - 45 Units/L [facility] Comment:Testing performed by : [address] [address] Blood 10/14/2024 5:13 AM CDT 10/14/2024 5:25 AM CDT us Loco Russell MD LAB BLOOD ORDERABLES Final Result [facility] Department [place] [address] * Troponin T high-sensitivity 6-hour (10/13/2024 9:13 PM CDT) Trop T hs 12 <=14 ng/L Comment: Interpretive Data For further hscTnT resources including the diagnostic algorithm and an aid in interpretation, copy and paste this link: [email or web address]/show/hsTrop Current Interpretive Data last revised 2020. Testing performed by: [address] [address] Trop T hs delta 5 ng/L [facility] Comment:Testing performed by : [address] [address] Trop T hs interp Equivocal [facility] Comment:Testing performed by : [address] [address] Blood 10/13/2024 9:13 PM CDT 10/13/2024 9:17 PM CDT us Vish Valdez MD LAB BLOOD ORDERABLES Final Resul t Performing Organization Address City/[facility] Co de Phone Number [place] [phone] [facility] [employer] [place] [place] [address] * Troponin T high-sensitivity 4-hour (10/13/2024 7:06 PM CDT) Trop T hs 8 <=14 ng/L Comment: Interpretive Data For further hscTnT resources including the diagnostic algorithm and an aid in interpretation, copy and paste this link: [email or web address]/show/hsTrop Current Interpretive Data last revised 2020. Testing performed by: [address] [address] Trop T hs delta 1 ng/L [facility] Comment:Testing performed by : [address] [address] Trop T hs interp Insignificant [facility] Comment:Testing performed by : [address] [address] Blood 10/13/2024 7:06 PM CDT 10/13/2024 7:12 PM CDT us Vish Valdez MD LAB BLOOD ORDERABLES Final Resul t Performing Organization Address City/[facility] Co de Phone Number [facility] Department [place] [address] * (ABNORMAL) Urinalysis reflex to microscopic and culture Urine (10/13/2024 6:05 PM CDT) Color, ur Straw Yellow Comment:Testing performed by : [address] [address] Clarity, ur Clear Clear [facility] Comment:Testing performed by : [address] [address] Specific gravity, ur 1.008 1.003 - 1.030 [facility] Comment:Testing performed by : [address] [address] pH, urine 7.5 [facility] Comment: Interpretive Data U rine pH is affected by diet, medications, systemic acid-base disturbances, and renal tubular function. pH may affect urinary stone formation. For example, urine pH below 6.0 may help reduce the tendency for calcium phosphate stones and pH greater than 6.0 may reduce the tendency for uric acid stone formation. Source: [facility] [employer] Current Interpretive Data was last revised on 2017 Testing performed by: [address] [address] Protein, ur ql Negative Negative [facility] Comment:Testing performed by : [address] [address] Glucose, ur ql Negative Negative [facility] Comment:Testing performed by : [address] [address] Ketones, ur Negative Negative [facility] Comment:Testing performed by : [address] [address] Bilirubin, ur Negative Negative [facility] Comment:Testing performed by : [address] [address] Blood, ur Negative Negative [facility] Comment:Testing performed by : [address] [address] Urobilinogen, ur <2.0 <2.0 mg/dL [facility] Comment:Testing performed by : [address] [address] Nitrite, ur Negative Negative [facility] Comment:Testing performed by : [address] [address] Leukocyte esterase, ur 3+(A) Negative [facility] Comment:Testing performed by : [address] [address] UA reflex comment Reflex to microscopic UA will be performed. [facility] Comment:Testing performed by : [address] [address] Urine 10/13/2024 6:05 PM CDT 10/13/2024 6:08 PM CDT us Mouna SALAZAR LAB MICROBIOLOGY - GENERAL ORDE RABLES Final Result Performing Organization Address City/[facility] Co de Phone Number [facility] [address] [employer] [place] [address] * (ABNORMAL) Urinalysis, microscopic only (10/13/2024 6:05 PM CDT) WBC, ur 11-20(A) 0 - 5 /HPF Comment:Testing performed by : [address] [address] RBC, ur 0-2 0 - 2 /HPF [facility] Comment:Testing performed by : [address] [address] Epithelial cells, squamous, ur 1-5 0 - 5 /HPF [facility] Comment:Testing performed by : [address] [address] Culture Reflex Comment Reflex to urine culture will be performed. [facility] Comment:Testing performed by : [address] [address] Urine 10/13/2024 6:05 PM CDT 10/13/2024 6:08 PM CDT Mouna SALAZAR LAB URINE ORDERABLES Final Resu lt Performing Organization Address City/[facility]/ZIP Co de Phone Number VAN[address] [employer] [place] [place] [address] * Urine culture Urine (10/13/2024 6:05 PM CDT) Report Final Report: Less than 100,000 colonies/mL (clinically insignificant growth based on current clinical standards) Comment:Testing performed by : [facility], [address] [facility] [place] [address] Organism (CLINICALLY INSIGNIFICANT GROWTH SILAS Urine 10/13/2024 6:05 PM CDT 10/13/2024 9:54 PM CDT Narrative SILAS - 10/15/2024 8:40 AM CDT Urine culture reflexed based upon urinalysis results. Testing performed by [facility] Microbiology Laboratory ([phone]) us Mouna SALAZAR LAB MICROBIOLOGY - [facility] Final Result SILAS [address] [facility] Department [place] [address] * Troponin T high-sensitivity 2-hour (10/13/2024 5:20 PM CDT) Trop T hs 7 <=14 ng/L Comment: Interpretive Data For further hscTnT resources including the diagnostic algorithm and an aid in interpretation, copy and paste this link: https://nrl.testcatalog.org/show/hsTrop Current Interpretive Data last revised 2020. Testing performed by: [address] [address] Trop T hs delta 0 ng/L SILAS Comment:Testing performed by : [address] [address] Trop T hs interp Insignificant SILAS Comment:Testing performed by : [address] [address] Blood 10/13/2024 5:20 PM CDT 10/13/2024 5:32 PM CDT us Vish Valdez MD LAB BLOOD ORDERABLES Final Resul t VANNER MH [address] [facility] Department [place] [address] * XR Chest 1 Vw Portable (if [...] Ernesto Jacinto M.D. MINERVA: MINERVA Report ID: [id number] Reading Location: [place] [address] Procedure Note Kashif Jacinto MD - 10/13/2024 [...] Ernesto Jacinto M.D. MINERVA: MINERVA Report ID: [id number] Reading Location: [id number] us Vish Valdez MD IMG XR PROCEDURES Final Result * Troponin T high-sensitivity series (baseline, 2hr, 4hr, 6hr) (10/13/2024 3:08 PM CDT) Trop T hs 7 <=14 ng/L Comment: Interpretive Data For further hscTnT resources including the diagnostic algorithm and an aid in interpretation, copy and paste this link: https://nrl.testcatalog.org/show/hsTrop Current Interpretive Data last revised 2020. Testing performed by: [facility], [address] [place] [address]., [address] Blood 10/13/2024 3:08 PM CDT 10/13/2024 3:32 PM CDT us Vish Valdez MD LAB BLOOD ORDERABLES Final Resul t VANUDV [address] [facility] Department [place] [address] * eGFR (10/13/2024 3:08 PM CDT) eGFR 81 >=60 mL/min/1. 73 m2 Comment: [...] was last reviewed 2021. Testing performed by: [address] [address] Blood 10/13/2024 3:08 PM CDT 10/13/2024 3:32 PM CDT us Vish Valdez MD LAB BLOOD ORDERABLES Final Resul t [facility] [address] [facility] Department of Laboratories [place], [place] [id number] * Differential, auto (10/13/2024 3:08 PM CDT) Neutrophil abs 3.82 1.50 - 6.50 K/cumm Comment:Testing performed by : [address] [address] Imm gran abs 0.03 0.00 - 0.10 K/cumm SILAS Comment:Testing performed by : [address] [address] Lymphocyte abs 1.44 0.80 - 3.30 K/cumm SILAS Comment:Testing performed by : [address] [address] Monocyte abs 0.57 0.20 - 0.80 K/cumm SILAS Comment:Testing performed by : [address] [address] Eosinophil abs 0.14 0.00 - 0.50 K/cumm SILAS Comment:Testing performed by : [address] [address] Basophil abs 0.06 0.00 - 0.10 K/cumm SILAS Comment:Testing performed by : [address] [address] Neutrophil pct 63.0 % SILAS Comment: Interpretive Data Percent cell count reference ranges are not reported, since discordance with absolute values may lead to misinterpretation of CBC data. Current Interpretive Data was last revised on 2017. Testing performed by: [address] [address] Imm gran pct 0.5 % [facility] Comment: Interpretive Data Percent cell count reference ranges are not reported, since discordance with absolute values may lead to misinterpretation of CBC data. Current Interpretive Data was last revised on 2017. Testing performed by: [address] [address] Lymphocyte pct 23.8 % [facility] Comment: Interpretive Data Percent cell count reference ranges are not reported, since discordance with absolute values may lead to misinterpretation of CBC data. Current Interpretive Data was last revised on 2017. Testing performed by: [address] [address] Monocyte pct 9.4 % [facility] Comment: Interpretive Data Percent cell count reference ranges are not reported, since discordance with absolute values may lead to misinterpretation of CBC data. Current Interpretive Data was last revised on 2017. Testing performed by: [address] [address] Eosinophil pct 2.3 % [facility] Comment: Interpretive Data Percent cell count reference ranges are not reported, since discordance with absolute values may lead to misinterpretation of CBC data. Current Interpretive Data was last revised on 2017. Testing performed by: [address] [address] Basophil pct 1.0 % [facility] Comment: Interpretive Data Percent cell count reference ranges are not reported, since discordance with absolute values may lead to misinterpretation of CBC data. Current Interpretive Data was last revised on 2017. Testing performed by: [address] [address] Blood 10/13/2024 3:08 PM CDT 10/13/2024 3:32 PM CDT us Vish Valdez MD LAB BLOOD ORDERABLES Final Resul t SILAS [address] [facility] Department [place] [address] * Thyroid Function [place] (10/13/2024 3:08 PM CDT) [facility] TSH 1.55 0.30 - 4.20 mcIUnit/mL Comment:Testing performed by : [address] [address] Blood 10/13/2024 3:08 PM CDT 10/13/2024 3:32 PM CDT us Mouna SALAZAR LAB BLOOD ORDERABLES Final Resu lt SILAS [address] [facility] Department [place] [address] * (ABNORMAL) CBC with auto differential (10/13/2024 3:08 PM CDT) [facility] WBC 6.06 3.80 - 9.90 K/cumm Comment:Testing performed by : [address] [address] Hgb 11.6(L) 11.9 - 15.5 g/dL SILAS MARI Comment:Testing performed by : [address] [address] Hct 36.3 35.6 - 45.5 % SILAS MARI Comment:Testing performed by : [address] [address] Plt 254 150 - 400 K/cumm SILAS MARI Comment:Testing performed by : [address] [address] MPV 10.8 9.1 - 12.3 fL SILAS MARI Comment:Testing performed by : [address] [address] RBC 3.90 3.90 - 5.20 M/cumm SILAS MARI Comment:Testing performed by : [address] [address] MCV 93.1 81.3 - 96.4 fL SILAS MARI Comment:Testing performed by : [address] [address] MCH 29.7 27.1 - 33.3 pg SILAS MARI Comment:Testing performed by : [address] [address] MCHC 32.0(L) 32.3 - 35.7 g/dL SILAS MARI Comment:Testing performed by : [address] [address] RDW CV 13.5 11.1 - 14.9 % SILAS MARI Comment:Testing performed by : [address] [address] RDW SD 45.5 35.7 - 48.1 fL SILAS MARI Comment:Testing performed by : [address] [address] NRBC abs 0.00 0.00 - 0.01 K/cumm SILAS MARI Comment:Testing performed by : [address] [address] Blood Venous blood specimen / Unknown 10/13/2024 3:08 PM CDT 10/13/2024 3:32 PM CDT us Vish Valdez MD LAB BLOOD ORDERABLES Final Resul t SILAS [address] [facility] Department [place] [address] * Comprehensive metabolic panel (10/13/2024 3:08 PM CDT) Sodium 140 135 - 145 mmol/L Comment:Testing performed by : [address] [address] Potassium, pl 4.1 3.3 - 4.9 mmol/L SILAS MARI Comment:Testing performed by : [address] [address] Chloride 105 97 - 110 mmol/L SILAS MARI Comment:Testing performed by : [address] [address] CO2 25 22 - 32 mmol/L SILAS MARI Comment:Testing performed by : [address] [address] Anion gap 10 2 - 15 mmol/L SILAS Comment:Testing performed by : [address] [address] BUN 20 6 - 25 mg/dL SILAS Comment:Testing performed by : [address], [place]., [address] Creatinine 0.77 0.60 - 1.10 mg/dL SILAS Comment:Testing performed by : [address] [address] Glucose 96 70 - 199 mg/dL SILAS Comment: Interpretive [...] was last revised 2022. Testing performed by: [address] [address] Calcium 9.8 8.5 - 10.3 mg/dL SILAS Comment:Testing performed by : [address] [address] Bilirubin, total 0.2 0.1 - 1.2 mg/dL SILAS Comment:Testing performed by : [address] [address] Protein, pl 7.0 6.5 - 8.5 g/dL SILAS Comment:Testing performed by : [address] [address] Albumin 4.3 3.5 - 5.0 g/dL SILAS Comment:Testing performed by : [address] [address] Alk phos 82 40 - 130 Units/L SILAS Comment:Testing performed by : [address] [address] ALT 31 7 - 45 Units/L SILAS Comment:Testing performed by : [facility], [address] [place] [address]., [address] AST 34 10 - 45 Units/L SILAS Comment:Testing performed by : [facility], [address] [place] [address]., [address] Blood 10/13/2024 3:08 PM CDT 10/13/2024 3:32 PM CDT Vish Valdez MD LAB BLOOD ORDERABLES Final Resul t [facility] [address] [facility] Department of Laboratories [place], [place] [id number] * ECG 12 lead (10/13/2024 3:03 PM CDT) Ventricular Rate EKG/Min 75 BPM [facility] Atrial Rate 75 BPM [facility] [place]-Interval (MSEC) 192 ms [facility] QRS-Interval (MSEC) 98 ms [facility] QT-Interval (MSEC) 396 ms [facility] QTc 442 ms [facility] P [place] 70 degrees [facility] R [place] -67 degrees [facility] T [place] 32 degrees [facility] Diagnosis Sinus rhythm with frequent Premature ventricular complexes Possible Left atrial enlargement Left anterior fascicular block Abnormal ECG When compared with ECG of 12-JUN-2023 13:01, No significant change Confirmed by DONNY BANG M.D. ([id number]) on 10/15/2024 12:52:54 AM [facility] 10/13/2024 3:03 PM CDT 10/15/2024 12:52 AM CDT us Vish Valdez MD ECG ORDERABLES Final Result Performing Organization Address City/[facility]/ZIP Co de Phone Number [facility] * COLONOSCOPY (11/27/2022 8:34 AM CDT) Anatomical Region Laterality Modality Other Narrative Procedure Note Ed Guzman MD - 11/27/2022 8:[address] [facility] GI ENDOSCOPY Patient Name: Tigre Parry Procedure Date: 11/27/2022 8:34 AM Date of : 1950 Admit Type: Outpatient Age: 72 Gender: Female Attending MD: Ed Guzman M.D. Room: [facility] ENDOSCOPY ROOM 06 Note Status: Finalized Procedure: [...] The scope was passed under direct vision.The [id number]-[id number] colonoscope was introduced through theanus and advanced [...] On: 11/27/2022 8:34 AM Recognized by the [employer] for promoting quality in endoscopy us Ed Guzman MD ENDOSCOPY PROCEDURES Final Resul t from Last 3 Months or Most Recently Relevant to Health Maintenance Insurance IDPA [facility] MEDICARE ADVANTAGE [facility]IC[facility] ADVANTAGE [facility] MEDICARE ADVANTAGE [facility] MEDICARE Address: [address] [address] [place] [address] Advance Directives For more information, please contact: [phone] * Full Code (Latest Code Status on File) Date Activated Date Inactivated Comments 10/13/2024 10:41 PM 10/15/2024 8:29 PM * Full Code Date Activated Date Inactivated Comments 06/12/2023 7:10 PM 06/15/2023 6:42 PM * Full Code Date Activated Date Inactivated Comments 05/25/2018 10:26 PM 05/29/2018 9:52 PM Care Teams Word Processor Technician Relationship Specialty Start Date End Date Shandra Perdomo PA PCP - General Physician Hands And Dial Inspector 03/14/23
--- OUTSIDE RECORDS SUMMARY | 2024-11-20 13:04 | XMS_ITS | Encounter Summary ---
Author Organization [facility] Address [address] [place] [address] Phone Care Team Providers Care Production Controller Name Role Phone Shandra Perdomo Primary Care Provider + Encounter Details Date Type Department Care Team (Latest Contact Info) Description 11/08/2024 Orders Only [facility] Scanning, Provider Social History Tobacco Use Types Packs/Day Years Used Date Smoking Tobacco: Former Cigarettes 1 50 1 971 - 2020 Smokeless Tobacco: Never Alcohol Use Standard Drinks/Week Comments No 0 (1 standard drink = 0.6 oz pur e alcohol) [facility] Utilities Answer Date Recorded In the [...] often do you attend chur ch or restorationist services? 1 to 4 times per year 10/14/2024 Do you belong to any clubs o r organizations such as holiness groups, unions, fraternal or athletic groups, or [...] any time in the past 12 m [facility], were you homeless or living in [...] Schedule Cardiology Document Scan Cardiac Services Ordered: 11/08/2024 documented as of this encounter Visit Diagnoses Not on filedocumented in this encounter Care Teams Production Controller Relationship Specialty Start Date End Date Shandra Perdomo PA PCP - General Physician Medicare Contact Specialist 03/14/23 documented as of this encounter
--- NOTE | 2024-11-20 13:42 | ED.URI ---
HPI - URI/Sore Throat General Chief Complaint: Upper Respiratory Infection Stated Complaint: sore throat Time Seen by Provider: 11/20/24 13:47 Source: patient, RN notes reviewed and old records reviewed Mode of arrival: ambulatory Limitations: no limitations History of Present Illness HPI Narrative: 74-year-old female presents to the [facility] complaints of a sore throat body aches since waking this morning. No treatment prior to arrival Denies any other symptoms Related Data Home Medications ?Medication ?Instructions ?Recorded ?Confirmed ?Last Taken ?Type alprazolam 0.25 mg tablet 0.25 mg DIRECTED 03/31/24 03/31/24 Unknown History atorvastatin 40 mg tablet 40 mg DIRECTED 03/31/24 03/31/24 Unknown History irbesartan 75 mg tablet 75 mg DIRECTED 03/31/24 03/31/24 Unknown History valacyclovir 500 mg tablet 500 mg DIRECTED 03/31/24 03/31/24 Unknown History metoprolol tartrate 25 mg tablet mg 11/20/24 Unknown History Allergies Allergy/AdvReac Type Severity Reaction Status Date / Time Penicillins Allergy Mild Hives Verified 11/20/24 13:49 Review of Systems Review of Systems: All systems reviewed & are unremarkable except as noted in HPI and below Constitutional: Constitutional: Reports as per HPI and Reports body ache(s) ENT: Reports as per HPI and Reports sore throat Cardiovascular: Cardiovascular: Reports no additional cardiovascular complaints, Denies chest pain and Denies dyspnea Respiratory: Respiratory: Reports no additional respiratory complaints, Denies chest congestion, Denies cough and Denies dyspnea Musculoskeletal: Musculoskeletal: Reports no additional musculoskeletal complaints Integumentary/Breasts: Skin/Breast: Reports system reviewed and no additional complaints, except as docu PMFSH Family History Family History Mother Cerebrovascular accident Sibling Family history of pancreatic cancer Father Family history of coronary artery disease Other Family history of lung cancer Family history of lymphoma Social History Social History Smoking status: Current every day smoker Alcohol intake: current Comments At the time of my signature, I reviewed and agree with the nursing past medical, surgical, social, and family history. There is no relevant family history pertinent to the patient complaint. Exam Const: General: cooperative, healthy appearing, comfortable, no acute distress, well developed, alert and well nourished Nutritional Appearance: well nourished Orientation/consciousness: patient oriented x3 Limitations: no limitations HENMT: Head: normal to inspection Ears: hearing grossly normal bilaterally, external ears normal, TM's normal bilaterally, EAC's normal, mastoids normal and no periauricular adenopathy Mouth: Yes Normal oral and palatal mucosa present, Yes lip normal, Yes tongue normal and Yes moist mucous membranes Throat: posterior oropharynx normal, uvula midline, postnasal drainage and no uvular edema Eyes: General: appearance normal, both eyes and all related structures Alignment and Position: alignment normal Neck: Neck: normal visual inspection, full ROM, no lymphadenopathy and no meningeal signs Chest: Chest palpation & inspection: normal inspection of the chest Resp: Effort & Inspection: normal respiratory effort and able to speak in complete sentences Auscultation: clear to auscultation bilaterally, no crackles, no rales, no rhonchi and no wheezes Cardio: Rate: regular rate Skin: General skin exam: normal color and no rashes or lesions noted Neuro: General: patient oriented x3, gait normal, moves all extremities and no meningeal signs Cognition (Neuro): normal cognition Speech: normal speech Gait exam (Neuro): Normal gait present Extrem: General: normal to inspection, full ROM, capillary refill normal and normal gait Psych: Appearance: grossly normal and well kempt Mental Status: mental status grossly normal Speech and movement: Normal speech and movement present and Clear speech present Affect: normal affect Attitude: cooperative Course Course Level of Care: Express Care Visit Vital Signs Vital signs: Vital Signs Temperature 97.1 F L 11/20/24 13:48 Pulse Rate 71 11/20/24 13:48 Respiratory Rate 18 11/20/24 13:48 Blood Pressure 127/86 11/20/24 13:48 Pulse Oximetry 98 11/20/24 13:48 Oxygen Delivery Room Air 11/20/24 13:48 Temperature 97.1 F L 11/20/24 13:48 Pulse Rate 71 11/20/24 13:48 Respiratory Rate 18 11/20/24 13:48 Blood Pressure 127/86 11/20/24 13:48 Pulse Oximetry 98 11/20/24 13:48 Oxygen Delivery Room Air 11/20/24 13:48 Reviewed MDM - URI/Sore Throat MDM Narrative Medical decision making narrative: Patient sitting in exam room patient is nontoxic, vitals are stable Patient presents with sore throat Patient strep is negative. Exam consistent with viral pharyngitis, postnasal drainage Patient appropriate for outpatient treatment with close follow Discharge instructions reviewed with patient, as well as provided in writing per nursing staff. The instructions also include specific and strict return/GO TO THE ER as well as f/u information. All questions have been answered, and the patient deny any further questions with discharge and discharge plan. Some parts of this dictation were generated by voice recognition software and may contain typographical and/or grammatical inaccuracies. Differential Diagnosis Differential diagnosis: Likely upper respiratory infection, otitis media, sinusitis, viral infection, bronchitis and pharyngitis Lab Data Labs: Lab Results 11/20/24 Range/Units 14:02 POC Grp A Strep Screen Negative (Negative) Reviewed Critical Care Time Critical Care Time Critical Care Time: No Discharge Plan Discharge Clinical Impression: PND (post-nasal drip) Pharyngitis Qualifiers: Pharyngitis/tonsillitis etiology: unspecified etiology Qualified Code(s): J02.9 - Acute pharyngitis, unspecified Patient Disposition: Home Condition: Stable Instructions: Antibiotic Form, Pharyngitis (ED), Allergies (ED), Postnasal Drip (DC) Additional Instructions: Your rapid strep swab was negative today at [facility]. A throat culture will be sent to the laboratory for further testing. If the test is positive, you will receive a phone call within 48 hours and an appropriate antibiotic will be initiated at that time. Your symptoms are likely due to a viral illness, which is not treated with antibiotics. Typically viral infections last 7-10 days, can linger for couple of weeks. It is very important to treat your symptoms. Drink plenty of water, Gatorade, Pedialyte, ice pops or Jell-O. -Alternate Tylenol per package directions for fever or pain. -Antihistamine medication such as Zyrtec/Claritin/Suzy during the day can help improve symptoms. -doing daily nasal irrigations can help relieve pressure your sinuses. Things like a Neti pot -Use Flonase twice a day for 5 days then daily to help reduce the inflammation and dry up your sinuses. -You can also use Mucinex. Be sure to drink plenty of water with this medication at least 8 ounces with every dose and it is important to drink 8 to 10 glasses of water per day. Water is a natural decongestant -Eat and drink things that are easy to swallow, like tea or soup, or popsicles. -Oral rinses such as: Salt water gargles and/or may use topical anesthetic (eg. Chloraseptic spray) or lozenges to relieve dryness or throat pain). -Frequent hand washing or hand residential coordinator is one of the best ways to prevent spread of infection. -Using a vaporizer or humidifier at night will also help thin secretions and help with coughing up phlegm. -Follow up with primary care provider in 7-10 days if condition is not improving - For new or worsening symptoms go directly to the nearest ER Patient Language: Frisian Prescriptions: No Action atorvastatin 40 mg tablet 40 mg DIRECTED valacyclovir 500 mg tablet 500 mg DIRECTED alprazolam 0.25 mg tablet 0.25 mg DIRECTED irbesartan 75 mg tablet 75 mg DIRECTED metoprolol tartrate 25 mg tablet Follow-up/Referrals: Leanne,MARTIN Eason [Primary Care Provider] - 1 Week ([facility] follow-up) Time of Disposition: 14:05
[2024-11-20 13:48] VITALS: BP 127/86; PULSE 71; RESP 18; TEMP 36.2; O2SAT 98
[2024-11-20 14:03] LABS: EDSTREPNEGPOS1 Negative (Negative)
== END 2024-11-20 14:10 | disposition home or self-care (01) ==
PROVIDERS: Emergency Provider Nurse Practitioner; PCP Physician Assistant
DX: R09.82 Postnasal drip (principal); J02.9 Acute pharyngitis, unspecified; F17.200 Nicotine dependence, unspecified, uncomplicated; I71.00 Dissection of unspecified site of aorta; I10 Essential (primary) hypertension; E78.00 Pure hypercholesterolemia, unspecified; M19.90 Unspecified osteoarthritis, unspecified site; F41.9 Anxiety disorder, unspecified
CPT/HCPCS: 87081; 87880; 99213; G0463

== ENCOUNTER 2025-02-13 14:30 | Emergency (ER) | payer MEDICARE, MEDICAID, SELFPAY ==
--- OUTSIDE RECORDS SUMMARY | 2025-02-13 14:32 | XMS_ITS | Clinical Summary ---
Author Organization [facility] Address [address] [place] [address] Care Team Providers Care Home Furnishings Sales Representative Name Role Phone Unavailable Primary Care Provider Unavailabl e Source Comments [facility],non-owned Affiliates and Associated Physician Practices is amultiple site organization consisting of ambulatory clinics and hospital sitesin [place], [place], [place] and [place]. This disclosure is being madepursuant to the Care Everywhere program and may not contain all information available regarding this patient. Last updated 18.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
--- OUTSIDE RECORDS SUMMARY | 2025-02-13 14:32 | XMS_ITS | Clinical Summary ---
Author Organization [facility] Address [address] [place] [address] Care Team Providers Care Electrical Power Station Technician Name Role Phone Misty Patel MD Primary Care Provider [phone] Allergies Active Allergy Reactions Criticality Noted Date Comments Amlodipine Swelling Medium 12/19/2020 Penicillins Rash Low 01/03/2021 Medications carvedilol 6.25 MG tablet Take 6.25 mg by mouth 2 (two) times daily. Active losartan 50 MG tablet Take 50 mg by mouth 2 (two) times daily. Active atorvastatin 20 MG tablet Take 20 mg by mouth nightly at bedtime. Active hydroCHLOROthia zide 12.5 MG tablet Take 12.5 mg by mouth every morning. Active zinc gluconate 50 MG Tab Take 50 mg by mouth daily. Active ferrous sulfate, 65 mg elemental, 325 (65 FE) MG tablet Take 325 mg by mouth daily with breakfast. Active calcium carb-cholecalci ferol 600-400 MG-UNIT Tab tablet Take 1 tablet by mouth daily. Active chlordiazePOXID E 5 MG capsule Take 5 mg by mouth 2 (two) times daily as needed for Anxiety. Active hydrOXYzine 25 MG tablet Take 25 mg by mouth every 6 (six) hours as needed for Anxiety. Active albuterol sulfate HFA 108 (90 Base) MCG/ACT inhaler Inhale 2 puffs into the lungs every 4 (four) hours as needed for Wheezing or Shortness of breath. 6.7 g 1 Active hydrALAZINE 25 MG tablet Take 1 tablet (25 mg total) by mouth 2 (two) times daily as needed (SBP >160). 120 tablet 1 Active Active Problems Problem Noted Date Diagnosed Date Class 1 obesity in adult 01/04/2021 NSTEMI (non-ST elevated myoc ardial infarction) ([facility]) 01/03/2021 Hypertension 05/27/2018 Overview (01/03/2021): Last Assessment & Plan: In the setting [...] d/c Amlodipine - Lisinopril 5 mg daily Dysphagia 05/26/2018 Overview (01/03/2021): Last Assessment & Plan: Yesterday, pt c/o mild dysphagia when swallowing water. Tolerated clear liquids yesterday without coughing. Also, thyroid mass found on CT which could be a contributing factor. - Currently no swallow study indicated - Consider speech eval/swallow study if dysphagia persists or worsens w/solid food intake today Thyroid mass of unclear etiology 05/26/2018 Overview (01/03/2021): Last Assessment & Plan: Found incidentally on CT scan. 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 Continues to deny pain. - Keep HR <70 and SBP <120 - Advance diet to Cardiac diet - q1 hr neurovascular checks - Tylenol PRN - Morphine 2 mg IV PRN Iron deficiency anemia 05/25/2018 Overview (01/03/2021): Last Assessment & Plan: Baseline anemia. Iron studies sent today - Iron dextran IV, 200 mg x 5 day course to replete calculated iron deficit of ~ 1 gram - Will likely need a GI consult and scope outpatient Basal cell carcinoma (BCC) of face 11/08/2016 Coronary artery disease Social History Tobacco Use Types Packs/Day Years Used Date Smoking Tobacco: Never Smokeless Tobacco: Never Tobacco Cessation:Counseling Given: Not Answered Alcohol Use Standard Drinks/Week Comments Yes 0 (1 standard drink = 0.6 oz pur e alcohol) AUDIT-C Answer Date Recorded Q1: How often do you have a drink containing alc ohol? Never 01/03/2021 Average Number of Drinks Not on file 021 Frequency of Binge Drinking Not on file 12/2020 Comments No Sex and Gender Information Value Date Recorded Sex Assigned at Not on file Legal Sex Female 6:51 AM CDT Gender Identity Not on file Sexual Orientation Not on file Last Filed Vital Signs Vital Sign Reading Time Taken Comments Blood Pressure 163/91 11/27/2022 3:49 AM CDT Pulse 78 11/27/2022 2:55 AM CDT Temperature 35.9 C (96.6 F) 11/27/2022 2:55 AM CDT Respiratory Rate 20 11/27/2022 2:55 AM CDT Oxygen Saturation 98% 11/27/2022 2:55 AM CDT Inhaled Oxygen Concentration - - Weight 79.6 kg (175 lb 7.8 oz) 11/27/2022 2:55 A M CDT Height 165.1 cm (5' 5) 11/27/2022 2:55 AM CDT Body Mass Index 29.2 11/27/2022 2:55 AM CDT Plan of Treatment Health Maintenance Due Date Last Done Comments ASCVD Statin 1950 Colorectal Cancer Screening Colonoscopy (10 Years) 1950 Hepatitis C 1968 DTaP, Tdap and Td Vaccines ( 1 - Tdap) 1969 Pneumococcal Vaccine: 50+ Ye ars (1 of 2 - PCV) 1969 Mammogram Screening 1990 Zoster Vaccines (1 of 2) 2000 RSV Immunization or 60+ Years (1 - Risk 60-74 years 1-dose series) 2010 Annual Medicare Wellness Visit 2015 Dexa Scan (General) 2015 ASCVD LDL 01/04/2022 01/04/2021 COVID-19 Vaccine (2023-2 5 season) 2024 Meningococcal B Vaccine Aged Out No l onger eligible based on patient's age to complete this topic Meningococcal Vaccine Aged Out No agustin wilber eligible based on patient's age to complete this topic RSV Immunizations Under 20 Months Aged Out No longer eligible based on patient's age to complete this topic Goals Goal Patient Goal Type Associated Problems Recent Progress Patient-Stated? Author Patient will return to prior living situation and remain independent in ADLs upon discharge from [facility] Davida Ferrari urologist Procedure Name Priority Date/Time Associated Diagnosis Comments LIPID PANEL Routine 01/04/2021 4:40 AM CDT from Last 3 Months or Most Recently Relevant to Health Maintenance Results * (ABNORMAL) LIPID PANEL (01/04/2021 4:40 AM CDT) CHOLESTEROL 192 <200 MG/DL 01/04/2021 5:18 AM CDT [facility] TRIGLYCERIDES 163(H) <150 MG/DL 01/04/2021 5:18 AM CDT [facility] HDL 34(L) >40.0 MG/DL 01/04/2021 5:18 AM CDT [facility] LDL (CALCULATED) 125(H) <100 MG/DL 01/04/2021 5:18 AM CDT [facility] NON HDL CHOLESTEROL 158(H) <130 MG/DL 01/04/2021 5:18 AM CDT [facility] CHOL/HDL RATIO 5.6(H) 0.0 - 4.5 01/04/2021 5:18 AM CDT [facility] VLDL CALCULATION 33 5 - 55 MG/DL 01/04/2021 5:18 AM CDT [facility] LIPID INTERPRETATION 01/04/2021 5:18 AM CDT [facility] Comment: NIH CONCENSUS REPORT RECOMMENDATIONS: ADULT CHILD LOW RISK: CHOLESTEROL <200 <170 TRIGLYCERIDE <150 --- HDL >=60 --- LDL <100 <110 BORDERLINE: CHOLESTEROL 200-239 170-199 TRIGLYCERIDE 150-199 --- HDL 40-59 --- LDL 100-159 110-129 HIGH RISK: CHOLESTEROL >=240 >=200 TRIGLYCERIDE >=200 --- HDL <40 --- LDL >=160 >=130 01/04/2021 4:40 AM CDT Hanna Eubanks NP LABORATORY Final Result [facility] [address] [place] [address], from Last 3 Months or Most Recently Relevant to Health Maintenance Insurance MEDICAID Advance Directives * Full Code (Latest Code Status on File) Date Activated Date Inactivated Comments 01/03/2021 12:14 PM 01/04/2021 12:32 PM Care Teams Electrical Power Station Technician Relationship Specialty Start Date End Date Misty Patel MD [facility] [address] [address] PCP - General FAMILY PRACTICE 01/03/21
--- OUTSIDE RECORDS SUMMARY | 2025-02-13 14:32 | XMS_ITS | Encounter Summary ---
Author Organization [facility] Address [address] [place] [address] Phone Care Team Providers Care Head Of Store Operations Name Role Phone Misty Patel MD Unavailable [phone] Misty Patel MD Primary Care Provider + [phone] Aracelis See MD Primary Care Pro vider Shandra Perdomo Primary Care Provider + Aracelis See MD Primary Care Pro vider Osiris Fitzpatrick MD Primary Care Provider [phone] Aracelis See MD Primary Care Pro vider Shandra Perdomo Primary Care Provider + Encounter Details Date Type Department Care Team (Late st Contact Info) Description 08/29/2020 Telephone [facility] Cardiology [address] [facility] [address] [facility] 8th [place] [address] [place] [address] Eric Abrams MD [address] [facility] [address] [place] [address] Social History Tobacco Use Types [...] COVID: Suspected 06/12/2023 06/12/2023 06/12/2023 3:07 PM CARD LACER COVID: Suspected 11/23/2024 11/24/2024 11/24/2024 12:16 PM CDT documented as of this encounter Care Teams Head Of Store Operations Relationship Specialty Start Date End Date Misty Patel MD PCP - General Family Medicine 05/03/19 08/05/22 Aracelis See MD PCP - General Family Medicine 08/06/22 12/17/22 Shandra Perdomo PA PCP - General Physician Roustabout Crew Pusher 12/18/22 01/23/23 Aracelis See MD [address] [place] [id number] PCP - General Family Medicine 01/24/23 02/10/23 Osiris Fitzpatrick MD [address] [address] PCP - General Family Practice 02/11/23 02/12/23 Aracelis See MD [address] [address] PCP - General Family Medicine 02/13/23 03/13/23 Shandra Perdomo PA PCP - General Physician Roustabout Crew Pusher 03/14/23 Misty Patel MD Referring Physician Family Medicine 03/18/19 01/23/23 documented as of this encounter
--- OUTSIDE RECORDS SUMMARY | 2025-02-13 14:32 | XMS_ITS ---
Author Organization [facility] Address [address] [place] [address] Care Team Providers Care Skidway Worker Name Role Phone Shandra Perdomo Primary Care Provider + Active Problems Problem Noted Date Diagnosed Date Cystitis 10/15/2024 Palpitations 10/13/2024 Shortness of breath 08/04/2023 Pneumonia of right upper lobe due to infectious organism 06/12/2023 URBANO (acute kidney injury) 06/12/2023 Screening for colon cancer 05/10/2023 Assessment & Plan (05/10/2023 11:34 AM EARLY CHILDHOOD LEAD TEACHER): Images from the original note were not included. Dr. Guzman performed colonoscopy October 2022 next colonoscopy screening due in October of 2027 attached is October 2022 is impression and recommendations completed by Dr. Guzman Helicobacter pylori infection 01/06/2023 Assessment & Plan (07/30/2024 11:00 AM EARLY CHILDHOOD LEAD TEACHER): EGD October 2022 with gastritis, pathology positive [...] 11/19/2022 Assessment & Plan (07/30/2024 10:34 AM EARLY CHILDHOOD LEAD TEACHER): CT scan August 2022 with thoracoabdominal dissection [...] EUS Assessment & Plan (05/10/2023 11:30 AM EARLY CHILDHOOD LEAD TEACHER): CT scan August 2022 with thoracoabdominal dissection [...] dissection Assessment & Plan (08/06/2022 11:10 AM EARLY CHILDHOOD LEAD TEACHER): Uncontrolled Previously had side effects to ssri [...] losartan Assessment & Plan (08/06/2022 10:55 AM EARLY CHILDHOOD LEAD TEACHER): Blood pressure at goal Continue coreg 6.25mg twice a day, 12.5mg hydrochlorothiazide, 50mg losartan Assessment & Plan (05/27/2018 11:29 AM EARLY CHILDHOOD LEAD TEACHER): In the setting of Type B dissection. [...] 05/26/2018 Assessment & Plan (05/27/2018 9:18 AM EARLY CHILDHOOD LEAD TEACHER): Yesterday, pt c/o mild dysphagia when swallowing water. Tolerated clear liquids yesterday without coughing. Also, thyroid mass found on CT which could be a contributing factor. - Currently no swallow study indicated - Consider speech eval/swallow study if dysphagia persists or worsens w/solid food intake today Assessment & Plan (05/26/2018 9:45 AM EARLY CHILDHOOD LEAD TEACHER): Pt c/o mild dysphagia when swallowing water. Denies coughing or a choking feeling. - advance diet to clears - consider swallow study if persists or worsens Thyroid mass of unclear etiology 05/26/2018 Assessment & Plan (11/12/2022 9:05 AM CDT): tsh within normal limits Given # to schedule ultrasound Assessment & Plan (05/27/2018 9:12 AM EARLY CHILDHOOD LEAD TEACHER): Found incidentally on CT scan. - Thyroid ultrasound Assessment & Plan (05/26/2018 4:54 PM EARLY CHILDHOOD LEAD TEACHER): Found incidentally on CT scan. - Thyroid ultrasound Thyroid mass 05/26/2018 Overview (05/02/2023): Last Assessment & Plan: Found incidentally on CT scan. - Thyroid ultrasound Last Assessment & Plan: Found incidentally on CT scan. - Thyroid ultrasound Aortic dissection 05/25/2018 Assessment & Plan (11/12/2022 9:05 AM CDT): Following with cardiology Annual CT scan Assessment & Plan (08/06/2022 10:46 AM EARLY CHILDHOOD LEAD TEACHER): Following with cardiology Annual CT scan Assessment & Plan (05/27/2018 9:12 AM EARLY CHILDHOOD LEAD TEACHER): Type B dissection. Continues to deny pain. - Keep HR <70 and SBP <120 - Advance diet to Cardiac diet - q1 hr neurovascular checks - Tylenol PRN - Morphine 2 mg IV PRN Assessment & Plan (05/26/2018 3:28 PM EARLY CHILDHOOD LEAD TEACHER): Type B dissection. Currently denies pain. - [...] today. Assessment & Plan (05/25/2018 10:46 PM EARLY CHILDHOOD LEAD TEACHER): On OSH CT. Chest pain now resolved. -start coreg 3.125 BID while using esmolol for HR 55-70, SBP <120 -NPO -T&S completed -q1h NV checks Iron deficiency anemia 05/25/2018 Assessment & Plan (07/30/2024 10:34 AM EARLY CHILDHOOD LEAD TEACHER): Patient has a history of iron-deficiency anemia, hemoglobin was 7.7 from labs September 2022, follows with Hematology and per patient her hemoglobin has increased to 11. Iron levels in the past have also been low, and she was receiving iron infusions with her geophysical party chief, currently on oral iron supplements. Patient denies [...] she was receiving iron infusions with her geophysical party chief, currently on oral iron supplements. Patient denies [...] 2027 Assessment & Plan (05/10/2023 11:25 AM EARLY CHILDHOOD LEAD TEACHER): Images from the original note were not included. Anemia has improved significantly Patient had a capsule endoscopy done since her last visit. This was inconclusive. Most recent labs from 04/29/23. Patient is seen by field marketing specialist. Hemoglobin has increased significantly since September. Assessment & Plan (01/06/2023 9:36 AM CDT): Patient has a history of iron-deficiency anemia, hemoglobin was 7.7 from labs September 2022, follows with Hematology and per patient her hemoglobin has increased to 11. Iron levels in the past have also been low, and she was receiving iron infusions with her geophysical party chief, currently on oral iron supplements. Patient denies [...] from labs September 2022. States saw her geophysical party chief last week in her hemoglobin has increased to 10. Iron levels in the past have also been low, and she was receiving iron infusions with her geophysical party chief. Patient denies any overt GI bleeding. Patient's [...] GI Assessment & Plan (05/27/2018 11:27 AM EARLY CHILDHOOD LEAD TEACHER): Baseline anemia. Iron studies sent today - Iron dextran IV, 200 mg x 5 day course to replete calculated iron deficit of ~ 1 gram - Will likely need a GI consult and scope outpatient Assessment & Plan (05/26/2018 9:44 AM EARLY CHILDHOOD LEAD TEACHER): Baseline anemia. - Consider adding iron supplementation after tolerating full diet Assessment & Plan (05/25/2018 10:47 PM EARLY CHILDHOOD LEAD TEACHER): Will consider iron supplementation in future. Trend [...]
--- OUTSIDE RECORDS SUMMARY | 2025-02-13 14:32 | XMS_ITS ---
Author Organization [facility] Address [address] [place] [address] Phone Care Team Providers Care Leave Specialist Name Role Phone LeanneShandra welch [facility] Primary Care Provider Archie Arredondo MD Unavailable [phone] Aracelis See MD Unavailable Santiago Hope MD Unavailable [phone] Active Problems Problem Noted Date Diagnosed Date [...]
--- OUTSIDE RECORDS SUMMARY | 2025-02-13 14:32 | XMS_ITS | Encounter Summary ---
Author Organization [facility] Address [address] [place] [address] Phone Care Team Providers Care Laboratory Worker Name Role Phone Shandra Perdomo Primary Care Provider + Encounter Details Date Type Department Care Team (Latest Contact Info) Description 02/09/2025 Orders Only [facility] Scanning, Provider Social History Tobacco Use Types Packs/Day Years Used Date Smoking Tobacco: Former Cigarettes 1 50 1 971 - 2020 Smokeless Tobacco: Never Alcohol Use Standard Drinks/Week Comments No 0 (1 standard drink = 0.6 oz pur e alcohol) [facility] Utilities Answer Date Recorded In the past 12 months has [employer] electric, gas, oil, or water company threatened to shut off services in your home? No 10/14/2024 Social Connection and Isolation Panel Answer Date Recorded In a typical week, how many times do you talk on the phone with family, friends, or neighbors? More than three times a week 10/14/2024 How often do you get togethe r with friends or relatives? More than three times a week 10/14/2024 How often do you attend chur ch or mu-ism services? 1 to 4 times per year 10/14/2024 Do you belong to any clubs o r organizations such as restoration groups, unions, fraternal or athletic groups, or [...] place to sleep or slept in a halfway (including now)? No 06/13/2023 Housing Stability Vital [...] time in the past 12 m [facility], were you homeless or living in a halfway (including now)? No 10/14/2024 Personal Safety Answer [...] Procedure Name Priority Date/Time Associated Diagnosis Comments SCAN - LABS 02/09/2025 documented in this encounter Results * SCAN - LABS (02/09/2025) us Provider Scanning Final Result documented in this encounter Visit Diagnoses Not on filedocumented in this encounter Care Teams Laboratory Worker Relationship Specialty Start Date End Date Shandra Perdomo PA PCP - General Physician Canary Breeder 03/14/23 documented as of this encounter
--- OUTSIDE RECORDS SUMMARY | 2025-02-13 14:32 | XMS_ITS | Encounter Summary ---
Author Organization [facility] Address [address] [place] [address] Phone Care Team Providers Care Pattern Worker Name Role Phone Shandra Perdomo Primary Care Provider + Encounter Details Date Type Department Care Team (Late st Contact Info) Description 02/04/2025 Telephone [facility] Cardiology [address] [facility] [address] [facility] 8th [place] [address] [place] [address] Khushi Menezes Social History Tobacco Use Types Packs/Day Years Used Date Smoking Tobacco: Former Cigarettes 1 50 1 971 - 2020 Smokeless Tobacco: Never Alcohol Use Standard Drinks/Week Comments No 0 (1 standard drink = 0.6 oz pur e alcohol) [facility] Utilities Answer Date Recorded In the past 12 months has [employer], gas, oil, or water company threatened to [...] week 10/14/2024 How often do you attend [facility] or alevism services? 1 to 4 times per year 10/14/2024 Do you belong to any clubs o r organizations such as zoroastrian groups, unions, fraternal or athletic groups, or [...] place to sleep or slept in a assisted (including now)? No 06/13/2023 Housing Stability Vital Sign Answer Edin e Recorded In the last 12 months, was t here a time when you were not able to pay the mortgage or rent on time? No 10/14/2024 In the past 12 months, how m any times have you moved where you were living? 0 10/14/2024 At any time in the past 12 m [facility], were you homeless or living in a assisted (including now)? No 10/14/2024 Personal Safety Answer [...] on filedocumented in this encounter Care Teams Pattern Worker Relationship Specialty Start Date End Date Shandra Perdomo PA PCP - General Physician Tax Economist 03/14/23 documented as of this encounter
--- OUTSIDE RECORDS SUMMARY | 2025-02-13 14:32 | XMS_ITS | Clinical Summary ---
Author Organization [facility] Address [address] [place] [address] Phone Care Team Providers Care Child Nutrition Assistant Name Role Phone Shandra Perdomo A PAC Primary Care Provider Archie Arredondo MD Unavailable [phone] Aracelis See MD Unavailable Santiago Hope MD Unavailable Allergies Active Allergy Reactions Criticality Noted Date Comments Amlodipine Swelling Medium 12/19/2020 Lisinopril Other (see Comments) Low 11/22/2022 Losartan Other (see Comments) Low 02/10/2023 Nightmares Penicillins Rash,Hives Medium 05/25/2018 Rash in her 30s Medications ALPRAZolam (XANAX) 0.25 MG Tablet TAKE 1 TABLET TWICE A DAY BY ORAL ROUTE NEEDED. 3 Active atorvastatin (LIPITOR) 40 MG Tablet Take 40 mg by mouth daily. 3 Active Calcium + Vitamin D3 600-10 MG-MCG Tablet Take 1 Tablet by mouth daily. 2 Active clobetasol (TEMOVATE) 0.05 % Cream 3 Active ferrous sulfate 325 (65 Fe) MG Tablet Take 325 mg by mouth daily. Active latanoprost (XALATAN) 0.005 % Solution APPLY ONE DROP TO BOTH EYES ONCE AT NIGHT 3 Active valACYclovir (VALTREX) 500 MG Tablet Take 500 mg by mouth daily. 3 Active Simbrinza 1-0.2 % Suspension 3 Active irbesartan (AVAPRO) 75 MG Tablet Take 75 mg by mouth nightly. 4 Active metoprolol tartrate (LOPRESSOR) 25 MG Tablet Take 25 mg by mouth 2 times daily. 5 10/27/19 26 Active albuterol 108 (90 Base) MCG/ACT Aerosol Solution take 1 Puff by inhalation every 4 hours as needed. 5 Active Active Problems Problem Noted Date Diagnosed [...] Encounters Date Type Department Care Team Description 02/09/2025 9:30 AM CDT Lab [facility] [address] [phone] Lab, Cc [place] Iron deficiency anemia, unspecified iron deficiency anemia type 02/09/2025 Travel 02/08/2025 Telephone [facility] [address] [phone] Archie Arredondo MD 12/16/2024 10:30 AM CDT Office Visit [facility] [address] [phone] Keyana Pang, BIODIESEL PLANT OPERATIONS ENGINEER, QUALITY ASSURANCE SUPERVISOR BODY Iron deficiency anemia, unspecified iron deficiency anemia type (Primary Dx); Chronic fatigue 12/15/2024 9:30 AM CDT Lab [facility] [address] [phone] Lab, Cc [facility] Iron deficiency anemia, unspecified iron deficiency anemia type; AVM (arteriovenous malformation) 12/15/2024 Travel from Last 3 Months Immunizations Immunization [...] on file 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 Gender Identity Not on file Sexual Orientation Not on file Last Filed Vital Signs Vital Sign Reading Time Taken Comments Blood Pressure 120/84 12/16/2024 10:41 AM CDT Pulse 79 12/16/2024 10:41 AM CDT Temperature 36.4 C (97.6 F) 12/16/2024 10:41 AM CDT Respiratory Rate 18 12/16/2024 10:4 1 AM CDT Oxygen Saturation 98% 12/16/2024 10: 41 AM CDT Inhaled Oxygen Concentration - - Weight 81.1 kg (178 lb 14.4 oz) 025 10:41 AM CDT Height 165.1 cm (5' 5) 12/16/2024 10:4 1 AM CDT Body Mass Index 29.77 12/16/2024 10:41 AM CDT Plan of Treatment Upcoming Encounters Date Type Department Care Team (Late st Contact Info) Description 03/14/2025 10:30 AM CDT Lab [facility] [address] [phone] Lab, Cc [place] 03/17/2025 10:00 AM CDT Office Visit [facility] [address] [phone] Archie Arredondo MD [address] [place] [address] Health Maintenance Due Date Last Done Comments DEXA Bone Density 1950 Mammogram 1950 SARS-COV-2 Immunization (#1) 1955 Pneumococcal Immunization (5 0+ years) (1 of 2 - PCV) 1969 Zoster Immunization (1 of 2) 1969 Cologuard 1995 Immunochemical Fecal Occult Blood 1995 Respiratory Syncytial Virus (RSV) Immunization (Adult) (1 - Risk 60-74 years 1-dose series) 2010 Influenza Immunization (#1) 2025 Colonoscopy 11/27/2032 11/27/2022 Colorectal Cancer Screening 11/27/2032 Td Immunization Every 10 Yea rs (Adults With 1 Tdap) 02/13/2033 02/13/2023 Hepatitis C Virus (HCV) Screening Completed 023 DTaP/Tdap/Td Immunization Discontinued 02/13/2023 TdaP Immunization Discontinued 02/13/2023 Hepatitis B Immunization Aged Out No longer eligible based on patient's age to complete this topic Human Papillomavirus (HPV) Immunization Aged Out No longer eligible b ased on patient's age to complete this topic Meningococcal Immunization (ACWY) Aged Out No longer eligible based on patient's age to complete this topic Rotavirus Immunization Aged Out No lo nger eligible based on patient's age to complete this topic Procedures Procedure Name Priority Date/Time Associated Diagnosis Comments CBC WITH AUTO DIFF OH Routine 02/09/2025 9:19 AM CDT IRON W/ IRON BINDING CAPACITY OH Routine 02/09/2025 9:19 AM CDT Iron deficiency anemia, unspecified iron deficiency anemia type FERRITIN Routine 02/09/2025 9:19 AM CDT Iron deficiency anemia, unspecified iron deficiency anemia type CBC WITH AUTO DIFF OH Routine 12/15/2024 10:50 AM CDT FERRITIN Routine 12/15/2024 10:50 AM CDT Iron deficiency anemia, unspecified iron deficiency anemia type AVM (arteriovenous malformation) IRON W/ IRON BINDING CAPACITY OH Routine 12/15/2024 10:50 AM CDT Iron deficiency anemia, unspecified iron deficiency anemia type AVM (arteriovenous malformation) HEPATITIS C ANTIBODY Routine 08/19/2022 8:44 AM HEAVY MACHINERY ASSEMBLER Special screening examination for viral disease from Last 3 Months or Most Recently Relevant to Health Maintenance Results * IRON W/ IRON BINDING CAPACITY OH (02/09/2025 9:19 AM CDT) Only the most recent of2 resultswithin the time period is included. IRON 85 50 - 212 ug/dL [facility] UIBC 283 155 - 355 ug/dL [facility] TIBC 368 261 - 478 ug/dl [facility] % Saturation 23 20 - 50 % [facility] 02/09/2025 9:19 AM CDT Narrative [facility] - 02/09/2025 10:09 AM CDT Release to patient->Immediate Archie Arredondo MD LAB SEND OUTS Final Result [facility] [address] [place] [address], * (ABNORMAL) CBC WITH AUTO DIFF OH (02/09/2025 9:19 AM CDT) Only the most recent of2 resultswithin the time period is included. WBC 5.1 4.0 - 10.0 10*3/uL [facility] HGB 12.0 11.2 - 15.7 g/dL [facility] HCT 37.5 34.1 - 44.9 % [facility] PLT 218 163 - 369 10*3/uL [facility] MPV 9.7 9.4 - 12.4 fL [facility] RBC 4.00 3.93 - 5.22 10*6/uL [facility] MCV 94 79 - 95 fL [facility] MCH 30.0 25.6 - 32.2 pg [facility] MCHC 32.0(L) 32.2 - 36.5 g/dL [facility] RDW 13.3 11.6 - 14.4 % [facility] Neutrophils % 66.5(H) 36.0 - 66.0 % [facility] Lymphocytes % 17.8(L) 19.0 - 40.0 % [facility] Monocytes % 11.5 4.1 - 12.1 % [facility] Eosinophils % 3.0 0.0 - 3.5 % [facility] Basophils % 0.8 0.0 - 1.0 % [facility] Absolute Neutrophils 3.4 1.4 - 6.6 10*3/uL [facility] Absolute Lymphocytes 0.9 0.8 - 4.0 10*3/uL [facility] Absolute Monocytes 0.6 0.2 - 1.2 10*3/uL [facility] Absolute Eosinophils 0.2 0.0 - 0.4 10*3/uL [facility] Absolute Basophils 0.0 0.0 - 0.1 10*3/uL [facility] 02/09/2025 9:19 AM CDT us Archie Arredondo MD LAB SEND OUTS Final Result [facility] [place] [place] [address], * FERRITIN (02/09/2025 9:19 AM CDT) Only the most recent of2 resultswithin the time period is included. Ferritin 15 11 - 307 ng/mL [facility] Blood 02/09/2025 9:19 AM CDT Narrative [facility] - 02/09/2025 1:54 PM CDT Release to patient->Immediate Archie Arredondo MD CHEMISTRY ORDERABLES Final R esult [facility] [place] [address], [place] [phone] * HEPATITIS C ANTIBODY (08/19/2022 8:44 AM HEAVY MACHINERY ASSEMBLER) HEPATITIS C VIRUS AB SIGNAL CUTOFF NON REACTIVE NON REACTIVE [facility] HEPATITIS C VIRUS AB COMMENT [facility] Comment: NOT INFECTED WITH HCV UNLESS EARLY OR ACUTE INFECTION IS SUSPECTED (WHICH MAY BE DELAYED IN AN IMMUNOCOMPROMISED INDIVIDUAL), OR OTHER EVIDENCE EXISTS TO INDICATE HCV INFECTION. Blood 08/19/2022 8:44 AM HEAVY MACHINERY ASSEMBLER Narrative [facility] - 08/20/2022 9:09 AM HEAVY MACHINERY ASSEMBLER TESTING PERFORMED AT: [] [address], [address], PHONE: [phone], CALENDER WIND UP TENDER: RICO PARADA, PHD Release to patient->Immediate Aracelis See MD CHEMISTRY ORDERAB LES Final Result [facility] from Last 3 Months or Most Recently Relevant to Health Maintenance Insurance MEDICAID [place] MEDICARE C [employer] Care Teams Child Nutrition Assistant Relationship Specialty Start Date End Date Shandra Perdomo [place] [address] [place] [id number] PCP - General Physician Domestic Cleaner 07/25/22 Archie Arredondo MD [address] [place] [phone] Consulting Physician Oncology 07/25/22 Aracelis See MD [facility] [address] [phone] Family Medicine 08/20/22 Santiago Hope MD [address] [phone] Pulmonary Disease 08/28/23
--- OUTSIDE RECORDS SUMMARY | 2025-02-13 14:32 | XMS_ITS | Encounter Summary ---
Author Organization [facility] Address [address] [place] [address] Care Team Providers Care Recooperer Name Role Phone Unavailable Primary Care Provider Unavailabl e Encounter Details Date Type Department Care Team (Late st Contact Info) Description 04/25/2020 Lab Requisition [facility] [address] 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 Gender Identity Not on file Sexual Orientation Not on file documented as of this encounter Plan of Treatment Not on file documented as of this encounter Procedures Procedure Name Priority Date/Time Associated Diagnosis Comments DERMATOPATHOLOGY Routine 04/24/2020 12:0 0 AM CDT documented in this encounter Results * DERMATOPATHOLOGY (04/24/2020 12:00 AM CDT) Case Report Dermatopathology Report Case: [id number] Authorizing Provider: Hallie Carballo MD Collected: 04/24/2020 12:00 AM Ordering Location: [facility] Received: 04/25/2020 06:38 AM Pathologist: Kayleigh De La Torre MD Specimen: Skin, nose bridge 0 1:45 PM CDT DERMATOPATHOLOGY LABORATORY Final Diagnosis Specimen A. 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 0 1:45 PM CDT DERMATOPATHOLOGY LABORATORY Gross Description Specimen A: Received is one formalin filled container labeled with the patient's name and designated nose bridge. The specimen consists of a shave measuring [id number]. Jar 0. 0 1:45 PM CDT DERMATOPATHOLOGY [...] characteristic determined by the Dermatopathology Laboratory at [facility], directed by Dr. Jose E Carmichael. These tests need not be, and therefore are not, approved by the [place] Food and Drug Administration. The tests are used for clinical purposes. Billing Codes Specimen Charges Stain Charges 41408 1 0 1:45 PM CDT DERMATOPATHOLOGY LABORATORY Embedded Images 0 1:45 PM CDT DERMATOPATHOLOGY LABORATORY Pathology/Cytolog y TISSUE SPECIMEN FROM SKIN / Unknown 04/24/2020 04/25/2020 6:38 AM CDT us Hallie Carballo MD LAB - PATHOLOGY/CYTOLOGY ORD ERABLES Final Result DERMATOPATHOLOGY LABORATORY [facility] - Department of Dermatology [address] [place] [address], [facility] [phone] documented in this encounter Visit Diagnoses Not on filedocumented in this encounter
--- OUTSIDE RECORDS SUMMARY | 2025-02-13 14:32 | XMS_ITS | Clinical Summary ---
Author Organization [facility] Address [address] [place] [address] Care Team Providers Care Barrel Loader And Cleaner Name Role Phone Shandra Perdomo Primary Care [...] 325 mg (65 mg of elemental iron) tabletIndication s:Iron Deficiency Anemia Take 1 tablet (325 mg total) by mouth daily with breakfast. 8 Active calcium carbonate-vitami n D3 (CALTRATE 600 + D) 1500 mg [...] 9 tablet 3 Active Simbrinza 1-0.2 % drops,suspension INSTILL ONE DROP INTO THE RIGHT EYE 3 TIMES A DAY 3 Active magnesium oxide (MAG-OX) 400 mg (241.3 mg elemental magnesium) tabletIndication s:hypomagnesemia Take 1 tablet (400 mg total) by mouth daily for 7 days 7 tablet 3 Active Additional Information Patient not taking.Reported on 01/20/2024 albuterol HFA (ProAir HFA) 90 mcg/actuation inhaler Inhale 2 puffs every 4 (four) hours as needed for wheezing or shortness of breath 8.5 g 5 4 03/10/20 25 Active irbesartan (AVAPRO) 75 mg tablet Take 1 tablet (75 mg total) by mouth nightly Active metoprolol tartrate (LOPRESSOR) 25 mg immediate release tablet Take 1 tablet (25 mg total) by mouth 2 (two) times a day 180 tablet 3 5 10/27/19 26 Active omeprazole (PriLOSEC) 20 mg capsuleIndicatio ns:Gastritis without bleeding, unspecified chronicity, unspecified gastritis type TAKE 1 CAPSULE BY MOUTH EVERY DAY 90 capsule 1 5 Active Active Problems Problem Noted Date Diagnosed Date Cystitis 10/15/2024 Palpitations 10/13/2024 Shortness of breath 08/04/2023 Pneumonia of right upper lobe due to infectious organism 06/12/2023 URBANO (acute kidney injury) 06/12/2023 Screening for colon cancer 05/10/2023 Assessment & Plan (05/10/2023 11:34 AM TRUCK BODY REPAIRER): Images from the original note were not included. Dr. Guzman performed colonoscopy October 2022 next colonoscopy screening due in October of 2027 attached is October 2022 is impression and recommendations completed by Dr. 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 [...] 05/26/2018 Assessment & Plan (05/27/2018 9:18 AM TRUCK BODY REPAIRER): Yesterday, pt c/o mild dysphagia when swallowing water. Tolerated clear liquids yesterday without coughing. Also, thyroid mass found on CT which could be a contributing factor. - Currently no swallow study indicated - Consider speech eval/swallow study if dysphagia persists or worsens w/solid food intake today Assessment & Plan (05/26/2018 9:45 AM TRUCK BODY REPAIRER): Pt c/o mild dysphagia when swallowing water. Denies coughing or a choking feeling. - advance diet to clears - consider swallow study if persists or worsens Thyroid mass of unclear etiology 05/26/2018 Assessment & Plan (11/12/2022 9:05 AM CDT): tsh within normal limits Given # to schedule ultrasound Assessment & Plan (05/27/2018 9:12 AM TRUCK BODY REPAIRER): Found incidentally on CT scan. - Thyroid ultrasound Assessment & Plan (05/26/2018 4:54 PM TRUCK BODY REPAIRER): Found incidentally on CT scan. - Thyroid ultrasound Thyroid mass 05/26/2018 Overview (05/02/2023): Last Assessment & Plan: Found incidentally on CT scan. - Thyroid ultrasound Last Assessment & Plan: Found incidentally on CT scan. 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 - Keep HR <70 and SBP <120 - Advance diet to Cardiac diet - q1 hr neurovascular checks - Tylenol PRN - Morphine 2 mg IV PRN Assessment & Plan (05/26/2018 3:28 PM TRUCK BODY REPAIRER): Type B dissection. Currently denies pain. - [...] today. Assessment & Plan (05/25/2018 10:46 PM TRUCK BODY REPAIRER): On OSH CT. Chest pain now resolved. -start coreg 3.125 BID while using esmolol for HR 55-70, SBP <120 -NPO -T&S completed -q1h NV checks Iron deficiency anemia 05/25/2018 Assessment & Plan (07/30/2024 10:34 AM TRUCK BODY REPAIRER): Patient has a history of iron-deficiency anemia, hemoglobin was 7.7 from labs September 2022, follows with Hematology and per patient her hemoglobin has increased to 11. Iron levels in the past have also been low, and she was receiving iron infusions with her ecg technician, currently on oral iron supplements. Patient denies [...] she was receiving iron infusions with her ecg technician, currently on oral iron supplements. Patient denies [...] 2027 Assessment & Plan (05/10/2023 11:25 AM TRUCK BODY REPAIRER): Images from the original note were not included. Anemia has improved significantly Patient had a capsule endoscopy done since her last visit. This was inconclusive. Most recent labs from 04/29/23. Patient is seen by sales merchandising specialist. Hemoglobin has increased significantly since September. Assessment & Plan (01/06/2023 9:36 AM CDT): Patient has a history of iron-deficiency anemia, hemoglobin was 7.7 from labs September 2022, follows with Hematology and per patient her hemoglobin has increased to 11. Iron levels in the past have also been low, and she was receiving iron infusions with her ecg technician, currently on oral iron supplements. Patient denies [...] from labs September 2022. States saw her ecg technician last week in her hemoglobin has increased to 10. Iron levels in the past have also been low, and she was receiving iron infusions with her ecg technician. Patient denies any overt GI bleeding. Patient's [...] GI Assessment & Plan (05/27/2018 11:27 AM TRUCK BODY REPAIRER): Baseline anemia. Iron studies sent today - Iron dextran IV, 200 mg x 5 day course to replete calculated iron deficit of ~ 1 gram - Will likely need a GI consult and scope outpatient Assessment & Plan (05/26/2018 9:44 AM TRUCK BODY REPAIRER): Baseline anemia. - Consider adding iron supplementation after tolerating full diet Assessment & Plan (05/25/2018 10:47 PM TRUCK BODY REPAIRER): Will consider iron supplementation in future. Trend [...] Encounters Date Type Department Care Team Description 02/10/2025 9:20 AM CDT Lab [facility] Office Building [address] [place] [address] Arrived 02/09/2025 Orders Only [facility] Scanning, Provider 02/04/2025 Telephone [facility] Cardiology [facility] Advanced Medicine 8th [place] [address] [place] [id number] Khushi Menezes 11/30/2024 Results Follow-Up [facility] Cardiology [address] [facility] Advanced Medicine 8th [place] [address] [place] [address] Eric Abrams MD M[facility] Mobile Cardiac Telemetry Event Monitor 11/26/[address] [address] Santiago Hope MD 11/25/[address] [address] Santiago Hope MD Test Results 11/24/2024 11:25 AM CDT - 11/24/2024 11:59 PM CDT Hospital Encounter [facility] MOB [address] DIAG IMG [address] [place] [address] Cough, unspecified type Discharge Disposition: Discharge to home or self care 11/24/2024 11:05 AM CDT Lab [facility] Office Building [address] [place] [address] Cough, unspecified type 11/23/[address] [address] Santiago Hope MD Sick Call from Last 3 Months Immunizations Immunization Administration Dates Next Due Influenza, Unspecified 04/08/2022(Deferred: Zayra ent Refused) Surgical History Surgery Date Site/Laterality Comments TUBAL LIGATION 06/30/1980 - 06/29/1981 CATARACT EXTRACTION 07/31/2022 - 08/27/2022 Right COLONOSCOPY 06/30/2011 - 06/29/2012 UPPER GASTROINTESTINAL ENDOSCOPY 2010 BREAST SURGERY Right cyst removal Medical History Medical History Date Comments Emphysema of lung 2018- mild no treatment Iron deficiency anemia H/O aortic [...] drink = 0.6 oz pur e alcohol) [facility] Utilities Answer Date Recorded In the past 12 months has th e electric, gas, oil, or water company [...] often do you attend chur ch or adventism services? 1 to 4 times per year 10/14/2024 Do you belong to any clubs o r organizations such as baptism groups, unions, fraternal or athletic groups, or [...] place to sleep or slept in a half-way (including now)? No 06/13/2023 Housing Stability Vital Sign Answer Edin e Recorded In the last 12 months, was t here a time when you were not able to pay the mortgage or rent on time? No 10/14/2024 In the past 12 months, how m any times have you moved where you were living? 0 10/14/2024 At any time in the past 12 m [facility], were you homeless or living in a half-way (including now)? No 10/14/2024 Personal Safety Answer [...] 1:42 PM CDT Height 165.1 cm (5' 5) 10/26/2024 1:42 PM CDT Body Mass Index [...] 2015 Depression Screening 08/06/2023 08/06/2022 Influenza Vaccine (#1) 2025 Fall Risk Assessment 10/15/2025 10/15/2024, 11/13/19 Colon Cancer Screening-Colonoscopy 11/28/20272022 DTaP/Tdap/Td Vaccine (2 - Td or Tdap) 02/13/2033 Colon Cancer Screening-CT Colonography Discontinued Colon Cancer Screening-DNA Stool Discontinued 11/28/19 Colon Cancer Screening-FIT Discontinued 11/27/2022 Colon Cancer Screening-Sigmoidoscopy Discontinued 10/30 Procedures Procedure Name Priority Date/Time Associated Diagnosis Comments LIPID PANEL Routine 02/10/2025 9:41 AM CDT SCAN - LABS 02/09/2025 XR CHEST PA LATERAL 2 VIEWS Schedule Routine, Read Routine (OP Routine) 11/24/2024 11:35 AM CDT Cough, unspecified type INFLUENZA A/B, RSV, AND COVID-19 PCR Routine 11/24/2024 11:17 AM CDT Cough, unspecified type COLONOSCOPY 11/27/2022 8:34 AM CDT from Last 3 Months or Most Recently Relevant to Health Maintenance Results * Lipid panel (02/10/2025 9:41 AM CDT) Cholesterol 169 30 - 199 mg/dL Comment: Interpretive Data Ages < or = 19 years Acceptable: <170 mg/dL Borderline high: 170-199 mg/dL High: >or= 200 mg/dL Ages > or = 20 years Desirable: <200 mg/dL Borderline high: 200-239 mg/dL High: >or= 240 mg/dL Literature References: 1. Expert Panel on Integrated Guidelines for Cardiovascular Health and Risk Reduction in Children and Adolescents. Pediatrics 2011;128:S213 2. NCEP Expert Panel. Circulation 2004;110:227 Current Interpretive Data was last revised on 2018. Testing performed by: [address] [address] Triglycerides 110 <=149 mg/dL [facility] Comment: Interpretive Data Ages < or = 9 years Acceptable: <75 mg/dL Borderline high: 75-99 mg/dL High: >or= 100 mg/dL Ages 10 to 20 years Acceptable: <90 mg/dL Borderline high: 90-129 mg/dL High: >or= 130 mg/dL Ages > or = 20 years Desirable: <150 mg/dL Borderline high: 150-199 mg/dL High: 200-499 mg/dL Very high: >or= 499 mg/dL Literature References: 1. Expert Panel on Integrated Guidelines for Cardiovascular Health and Risk Reduction in Children and Adolescents. Pediatrics 2011;128:S213 2. NCEP Expert Panel. Circulation 2004;110:227 Current Interpretive Data was last revised on 2018. Testing performed by: [address] [address] HDL 43 >=40 mg/dL [facility] Comment: Interpretive Data Ages < or = 19 years Acceptable: >45 mg/dL Borderline low: 40-45 mg/dL Low: <40 mg/dL Ages > or = 20 years Desirable: >or= 60 mg/dL Low: <40 mg/dL Literature References: 1. Expert Panel on Integrated Guidelines for Cardiovascular Health and Risk Reduction in Children and Adolescents. Pediatrics 2011;128:S213 2. NCEP Expert Panel. Circulation 2004;110:227 Current Interpretive Data was last revised on 2018. Testing performed by: [address] [address] LDL, calculated 106 <=129 mg/dL [facility] Comment: Interpretive Data Ages < or = 19 years Acceptable: <110 mg/dL Borderline high: 110-129 mg/dL High: >or= 130 mg/dL Ages > or = 20 years Optimal: <100 mg/dL Near optimal: 100-129 mg/dL Borderline high: 130-159 mg/dL High: >160 mg/dL Calculated using the Mason LDL-C estimating equation. This equation was implemented on 2024. Prior to this date LDL-C was estimated using the Friedewald equation. Literature References: 1. Expert Panel on Integrated Guidelines for Cardiovascular Health and Risk Reduction in Children and Adolescents. Pediatrics 2011;128:S213 2. NCEP Expert Panel. Circulation 2004;110:227 3. Mason Lo et al. ALANA Cardiol. 2020 October 28;5(5):540-548. doi: 10.1001/jamacardio.2020.0013 Current Interpretive Data was last revised on 2024. Testing performed by: [address] [address] Non-HDL Cholesterol 126 mg/dL [facility] AMRI Comment: Interpretive Data Ages < or = 19 years Acceptable: <120 mg/dL Borderline high: 120-144 mg/dL High: >145 mg/dL Ages > or = 20 years When triglycerides are >200 mg/dL, Non-HDL cholesterol is a secondary target of therapy with treatment goals that are 30 mg/dL greater than the LDL cholesterol target. Literature References: 1. Expert Panel on Integrated Guidelines for Cardiovascular Health and Risk Reduction in Children and Adolescents. Pediatrics 2011;128:S213 2. NCEP Expert Panel. Circulation 2004;110:227 Current Interpretive Data was last revised on 2018. Testing performed by: [address] [address] Chol/HDL ratio 4 [facility] Comment:Testing performed by : [address] [address] Blood 02/10/2025 9:41 AM CDT 02/10/2025 10:40 AM CDT us Shandra SALAZAR LAB BLOOD ORDERABLES Fin al Result [facility] MARI [address] [facility] Department of Laboratories [place], [place] [id number] * SCAN - LABS (02/09/2025) us Provider Scanning Final Result * X-ray chest 2 views (11/24/2024 11:35 AM CDT) Anatomical Region Laterality Modality Body, Chest N/A Computed Radiogr aphy 12/01/2024 2:29 PM CDT Narrative 12/01/2024 2:31 PM CDT EXAM DESCRIPTION: XR CHEST PA LATERAL 2 VIEWS REASON FOR STUDY: Sore throat and cough x 4 days TECHNIQUE: Frontal and lateral radiographic views of the chest were acquired. COMPARISON: 10/13/2024 FINDINGS: LUNGS/PLEURA: There is no focal infiltrate or evidence of pneumothorax. No significant pleural effusion. HEART/MEDIASTINUM: The heart size is normal. Normal mediastinal and hilar contours. LINES/TUBES: None. BONES: No acute findings. Multilevel degenerative change of the spine. OTHER: No other significant finding. IMPRESSION: No acute cardiopulmonary abnormality. THIS IS AN ELECTRONICALLY VERIFIED FINAL REPORT 12/01/2024 2:31 PM - Electronically signed by Yossi Wright M.D. RW: ROSEMARIE Report ID: [id number] Reading Location: [id number] Procedure Note Yossi Wright MD - 12/01/2024 EXAM DESCRIPTION: XR CHEST PA LATERAL 2 VIEWS REASON FOR STUDY: Sore throat and cough x 4 days TECHNIQUE: Frontal and lateral radiographic views of the chest wereacquired. COMPARISON: 10/13/2024 FINDINGS: LUNGS/PLEURA: There is no focal infiltrate or evidence of pneumothorax. No significant pleural effusion. HEART/MEDIASTINUM: The heart size is normal. Normal mediastinal and hilar contours. LINES/TUBES: None. BONES: No acute findings. Multilevel degenerative change of the spine. OTHER: No other significant finding. IMPRESSION: No acute cardiopulmonary abnormality. THIS IS AN ELECTRONICALLY VERIFIED FINAL REPORT 12/01/2024 2:31 PM - Electronically signed by Yossi Wright M.D. RW: ROSEMARIE Report ID: [id number] Reading Location: [id number] Santiago Hope MD IMG XR PROCEDURES Aleah l Result * Influenza A/B, RSV, and COVID-19 PCR Nasopharyngeal (11/24/2024 11:17 AM CDT) Pathologist [facility] COVID-19 RNA Negative Negative Comment:Testing performed by : [address] [address] Influenza A RNA Negative Negative [facility] Comment:Testing performed by : [address] [address] Influenza B RNA Negative Negative [facility] Comment:Testing performed by : [address] [address] RSV RNA Negative Negative [facility] Comment: Interpretive data: Testing performed by [facility]. This test is performed using the [employer] Xpert Xpress CoV-2/Flu/RSV plus assay. This is a multiplex, real-time reverse transcriptase PCR assay intended for the qualitative detection of nucleic acid from SARS-CoV-2, influenza A, influenza B, and respiratory syncytial virus. This assay has been cleared by the [place] Food and Drug administration. The performance characteristics have been verified by the [facility]. Results must be considered in the clinical context, and a negative result does not rule out infection. Interpretive Data last revised 2023 Testing performed by: [address] [address] Nasopharyngeal 11/24/2024 11 :17 AM CDT 11/24/2024 11:37 AM CDT Narrative [facility] - 11/24/2024 12:15 PM CDT Is the Patient experiencing symptoms consistent with COVID?->Yes Reason for testing?->Symptomatic Santiago Hope MD LAB MICROBIOLOGY - GEN ERAL ORDERABLES Final Result [facility] [address] [facility] [place] [address] * COLONOSCOPY (11/27/2022 8:34 AM CDT) Anatomical Region Laterality Modality Other Narrative Procedure Note Ed Guzman MD - 11/27/2022 8:34 AM CDT [facility] GI ENDOSCOPY Patient Name: Shaista Parry Procedure Date: 11/27/2022 8:34 AM Date of : 1950 Admit Type: Outpatient Age: 72 Gender: Female Attending MD: Ed Guzman M.D. Room: [facility] ENDOSCOPY ROOM 06 Note Status: Finalized [...] The scope was passed under direct vision.The [id number]-[id number] colonoscope was introduced through theanus and advanced [...] On: 11/27/2022 8:34 AM Recognized by the [place] [employer] for promoting quality in endoscopy us Ed Guzman MD ENDOSCOPY PROCEDURES Final Resul t from Last 3 Months or Most Recently Relevant to Health Maintenance Insurance [facility]PA [facility] MEDICARE ADVANTAGE [facility] MEDICARE ADVANTAGE [facility] MEDICARE ADVANTAGE Advance Directives For more information, please contact: [phone] * Full Code (Latest Code Status on File) Date Activated Date Inactivated Comments 10/13/2024 10:41 PM 10/15/2024 8:29 PM * Full Code Date Activated Date Inactivated Comments 06/12/2023 7:10 PM 06/15/2023 6:42 PM * Full Code Date Activated Date Inactivated Comments 05/25/2018 10:26 PM 05/29/2018 9:52 PM Care Teams Barrel Loader And Cleaner Relationship Specialty Start Date End Date Shandra Perdomo PA PCP - General Physician Literacy Consultant 03/14/23
--- OUTSIDE RECORDS SUMMARY | 2025-02-13 14:32 | XMS_ITS | Encounter Summary ---
Author Organization [facility] Address [address] [place] [address] Phone Care Team Providers Care Passenger Coach Driver Name Role Phone Shandra Perdomo Primary Care [...] drink = 0.6 oz pur e alcohol) [facility] Utilities Answer Date Recorded In the past 12 months has [employer] electric, gas, oil, or water company threatened [...] often do you attend chur ch or jewish services? 1 to 4 times per year 10/14/2024 Do you belong to any clubs o r organizations such as restorationism groups, unions, fraternal or athletic groups, or [...] place to sleep or slept in a longterm (including now)? No 06/13/2023 Housing Stability Vital Sign Answer Edin e Recorded In the last 12 months, was t here a time when you were not able to pay the mortgage or rent on time? No 10/14/2024 In the past 12 months, how m any times have you moved where you were living? 0 10/14/2024 At any time in the past 12 m [facility], were you homeless or living in a longterm (including now)? No 10/14/2024 Personal Safety Answer [...] Date Last Indicated Resolved Time COVID: Suspected 11/23/2024 11/24/2024 11/24/2024 12:16 PM CDT documented as of this encounter Care Teams Passenger Coach Driver Relationship Specialty Start Date End Date Shandra Perdomo PA PCP - General Physician Mender Knit Goods 03/14/23 documented as of this encounter
--- OUTSIDE RECORDS SUMMARY | 2025-02-13 14:32 | XMS_ITS | Encounter Summary ---
Author Organization [facility] Address [address] [place] [address] Phone Care Team Providers Care Allergy Specialist Name Role Phone Unknown, Notinfile Primary Care Provider Unavail able Shree Dunn MD Primary Care Provider [phone] Shree Dunn MD Unavailable [phone] Kashif aPz MD Unavailable Eric Abrams MD Unavailable Misty Patel MD Unavailable [phone] Misty Patel MD Primary Care Provider + [phone] Aracelis See MD Primary Care Pro vider Shandra Perdomo Primary Care Provider + Aracelis See MD Primary Care Pro vider Osiris Fitzpatrick MD Primary Care Provider [phone] Aracelis See MD Primary Care Pro vider Shandra Perdomo Primary Care Provider + Encounter Details Date Type Department Care Team (Late st Contact Info) Description 05/26/2018 Telephone [facility] Cardiology [address] [facility] 8th [place] [address] [place] [address] Bart Barnes Social History Tobacco Use Types [...] COVID: Suspected 06/12/2023 06/12/2023 06/12/2023 3:07 PM STRETCHER HELPER COVID: Suspected 11/23/2024 11/24/2024 11/24/2024 12:16 PM CDT documented as of this encounter Care Teams Allergy Specialist Relationship Specialty Start Date End Date Unknown, Notinfile PCP - General 05/25/18 05/31/18 Shree Dunn MD PCP - General Family Medicine 06/01/18 03/17/19 Misty Patel MD [address] [place] [address] PCP - General Family Medicine 05/03/19 08/05/22 Aracelis See MD [address] [place] [address] PCP - General Family Medicine 08/06/22 12/17/22 Shandra Perdomo PA [address] [place] [address] PCP - General Physician Glass Cylinder Flanger 12/18/22 01/23/23 Aracelis See MD [address] [place] [address], [place] [address] PCP - General Family Medicine 01/24/23 02/10/23 Osiris Fitzpatrick MD [address] [facility] [address] [place] [address] PCP - General Family Practice 02/11/23 02/12/23 Aracelis See MD [address] [facility] [address] [place] [address] PCP - General Family Medicine 02/13/23 03/13/23 Shandra Perdomo PA [address] [place] [address] PCP - General Physician Glass Cylinder Flanger 03/14/23 Shree Dunn MD 05/25/18 03/17/19 Kashif Paz MD [address] [place] [address] Referring Physician Vascular Surgery 05/29/18 03/17/19 Eric Abrams MD [address] [place] [address] Referring Physician Cardiology 05/29/18 03/17/19 Misty Patel MD [address] [place] [address] Referring Physician Family Medicine 03/18/19 01/23/23 documented as of this encounter
--- NOTE | 2025-02-13 14:37 | ED_ITS ---
HPI - Female Genitourinary General Chief complaint: Urogenital-Female Stated complaint: uti symptoms Time Seen by Provider: 02/13/25 14:32 patient presents to [facility] with complaints of burning with urination, urinary frequency, and bladder pressure that began about 1 week ago. Patient noted she did drop off a urine specimen at her primary care physician 2 days ago but noted they would wait for culture to send out any antibiotics. Patient concerned as symptoms are getting worse and she is noting some nausea and feeling comfortable. Patient concerned about antibiotics because she does have a type B aortic dissection closely followed by Cardiology but concerned about antibiotics. Denies fever, chills, blood in urine, back pain, or flank pain. Related Data Home Medications ?Medication ?Instructions ?Recorded ?Confirmed ?Last Taken ?Type alprazolam 0.25 mg tablet 0.25 mg DIRECTED 03/31/24 03/31/24 Unknown History atorvastatin 40 mg tablet 40 mg DIRECTED 03/31/24 03/31/24 Unknown History irbesartan 75 mg tablet 75 mg DIRECTED 03/31/24 03/31/24 Unknown History valacyclovir 500 mg tablet 500 mg DIRECTED 03/31/24 03/31/24 Unknown History metoprolol tartrate 25 mg tablet mg 11/20/24 Unknown History Allergies Allergy/AdvReac Type Severity Reaction Status Date / Time Penicillins Allergy Mild Hives Verified 02/13/25 14:48 Review of Systems Constitutional: Constitutional: Reports as per HPI, Denies chills and Denies fatigue Eyes: Eyes: Reports no additional eye complaints ENT: Reports system reviewed and no additional complaints, except as documented Cardiovascular: Cardiovascular: Reports no additional cardiovascular complaints Respiratory: Respiratory: Reports no additional respiratory complaints Gastrointestinal: Gastrointestinal: Reports as per HPI, Denies abdominal pain, Denies heartburn, Denies diarrhea, Reports nausea and Denies vomiting Genitourinary: Genitourinary: Reports as per HPI, Denies abnormal vaginal bleeding, Denies hematuria, Reports nocturia, Denies genital lesions, Reports dysuria, Denies pelvic pain, Denies flank pain, Denies urinary incontinence and Denies vaginal discharge Musculoskeletal: Musculoskeletal: Reports as per HPI, Denies back pain and Denies myalgias Integumentary/Breasts: Skin/Breast: Reports as per HPI, Denies erythema and Denies rash Neurologic: Reports system reviewed and no additional complaints, except as documented Psychiatric: Psychiatric: Reports no additional psychiatric complaints Endocrine: Endocrine: Reports no additional endocrine complaints Hematologic/Lymphatic: Hematologic/Lymphatic: Reports no additional hematologic/lymphatic complaints Allergic/Immunologic: Allergic/Immunologic: Reports no additional allergic/immunologic complaints PMFSH Family History Family History Mother Cerebrovascular accident Sibling Family history of pancreatic cancer Father Family history of coronary artery disease Other Family history of lung cancer Family history of lymphoma Social History Social History Smoking status: Current every day smoker Alcohol intake: current Exam Const: General: healthy appearing and no acute distress Nutritional Appeara nce: well nourished Orientation/consciousness: patient oriented x3 Limitations: no limitations Resp: Effort & Inspection: normal respiratory effort Auscultation: clear to auscultation bilaterally Cardio: Rate: regular rate Rhythm: regular rhythm GI: Inspection: non-distended GI Palp: Yes Soft to palpation, No Tenderness to palpation present (GI), No Guarding due to palpation present (GI), No Rigid due to palpation and No Hernia present Auscultation: normal bowel sounds : General: Yes bladder normal to palpation, No Bladder palpation abnormal and Yes no CVA tenderness Back/Spine/Pelvis: Back: no CVA tenderness Skin: General skin exam: normal color Rashes: no rashes Wounds: no wounds Neuro: General: patient oriented x3 Speech: normal speech Gait exam (Neuro): Normal gait present Psych: Appearance: grossly normal Mental Status: mental status grossly normal Affect: normal affect Attitude: cooperative Course Course Level of Care: Express Care Visit MDM - Female Genitourinary MDM Narrative Medical decision making narrative: UA positive blood will send culture. Patient noted having an aortic dissection declines Macrobid would like Bactrim Discharge instructions reviewed with patient, as well as provided in writing per nursing staff. The instructions also include specific and strict return/GO TO THE ER as well as f/u information. All questions have been answered, and the patient deny any further questions with discharge and discharge plan. Differential Diagnosis Differential diagnosis: Likely urinary tract infection, cervicitis, vaginitis and cystitis Medical Records Attestation: I reviewed the patient's medical records. Lab Data Attestation: I reviewed the patient's lab results. Discharge Plan Discharge Clinical Impression: Cystitis Patient Disposition: Home Condition: Stable Instructions: Antibiotic Form, Urinary Tract Infection in Women (ED) Additional Instructions: We will send a urine culture off to the lab; if the culture identifies an organism that the prescribed antibiotic will not treat, you will receive a phone call from an urgent care staff member and an appropriate antibiotic will be prescribed. -Your symptoms should begin to improve within a day of starting antibiotics. But you should finish all the antibiotic pills you get. Otherwise your infection might come back. -Also recommend: drink more fluid. It might help flush out germs, and it does no harm -Tylenol/ibuprofen as needed for pain -Follow-up with your primary care provider for urine recheck OR if your symptoms persist, change or worsen significantly before you can contact your personal physician then please, without delay, go to the emergency department for further evaluation. Patient Language: Malay Prescriptions: New nitrofurantoin monohyd/m-cryst [Macrobid] 100 mg capsule 100 mg PO Q12H 5 Days Qty: 10 0RF Rx Instructions: must administer with a meal/food No Action atorvastatin 40 mg tablet 40 mg DIRECTED valacyclovir 500 mg tablet 500 mg DIRECTED alprazolam 0.25 mg tablet 0.25 mg DIRECTED irbesartan 75 mg tablet 75 mg DIRECTED metoprolol tartrate 25 mg tablet Follow-up/Referrals: Leanne,MARTIN Eason [Primary Care Provider] - Time of Disposition: 14:59
[2025-02-13 14:39] VITALS: BP 151/79; PULSE 69; RESP 18; TEMP 36.6; O2SAT 97
[2025-02-13 14:52] LABS: EDUAAPPEAR Clear; EDUABILI Negative (Negative); EDUABLOOD Trace (Negative); EDUACOLOR1 Yellow; EDUAGLUCOSE Negative (Negative); EDUAKETONE Negative (Negative); EDUALEUKO Negative (Negative); EDUANITRATE Negative (Negative); EDUAPH 5.5; EDUAPROTEIN Negative (Negative); EDUASPGRAVITY 1.020; EDUAUROBILI 0.2
== END 2025-02-13 15:03 | disposition home or self-care (01) ==
PROVIDERS: Emergency Provider Nurse Practitioner Family; PCP Physician Assistant
DX: N30.90 Cystitis, unspecified without hematuria (principal); F17.200 Nicotine dependence, unspecified, uncomplicated; I71.00 Dissection of unspecified site of aorta
CPT/HCPCS: 81003; 87086; 99213; G0463